=== PATIENT | male | born 1960 | race African-American/Black ===

== ENCOUNTER 2016-08-22 21:21 | Inpatient (IN) | payer OTHER ==
[~2016-08-22] VITALS: Ht 177.8 cm; Wt 98.3 kg
[2016-08-22] VITALS (8 sets, daily range): BP systolic 102–183; BP diastolic 69–113; PULSE 71–118; RESP 17–18; TEMP 98.5; O2SAT 92–97
[~2016-08-22 21:21] MED LIST: ASPI325T PO; LISI10 PO
--- NOTE | 2016-08-22 21:42 | PD ---
HPI Chief Complaint: Chest Pain Time Seen by Provider: 21:29 Travel History International Travel<30 days: No Contact w/Intl Traveler<30days: No Traveled to known affect area: No History of Present Illness HPI 56-year-old male with history of hypertension here for evaluation of chest pain. The patient has had intermittent episodes of left-sided chest discomfort that goes into his left neck and down his left arm over the last 2 days. He describes the pain as sharp. He also complains of intermittent numbness to his left arm. No focal weakness or focal neurologic deficits. Currently the pain is 3 out of 10. He took a full aspirin just prior to coming to the emergency department. He states he has been admitted to our hospital before for chest pain and had a negative workup. Chart review shows that he had a negative myocardial perfusion scan in 2014. He used to have a primary care physician and was on lisinopril, however because insurance changes he is no longer seeing a primary care physician and is no longer on lisinopril. He denies dyspnea. No history of DVT or PE. No fevers or recent illness. Family history of heart disease in his mother who from cardiac complications. PFSH Past Medical History Heart Rhythm Problems: No Cancer: No Cardiac Catheterization: No Cardiovascular Problems: No High Cholesterol: No Congestive Heart Failure: No Diabetes: No Diminished Hearing: No Hepatitis: No Hiatal Hernia: No Hypertension: Yes Respiratory: Yes ("I TEST POSITIVE FOR TB, BUT I DON'T HAVE TB." ) Thyroid Disease: No Past Surgical History Coronary Artery Bypass Graft: No Pacemaker: No Social History Alcohol Use: No Tobacco Use: No Substance Use: No Allergies-Medications (Allergen,Severity, Reaction): Coded Allergies: No Known Allergies (Verified , 08/22/16) Reported Meds & Prescriptions Reported Meds & Active Scripts Active No Active Prescriptions or Reported Medications Review of Systems Except as stated in HPI: all other systems reviewed are Neg Physical Exam Narrative GENERAL: Well-developed, well-nourished, comfortable, no acute distress. SKIN: Focused skin assessment warm/dry. HEAD: Atraumatic. Normocephalic. EYES: Pupils equal and round. No scleral icterus. No injection or drainage. ENT: Mucous membranes pink and moist. NECK: Trachea midline. No JVD. CARDIOVASCULAR: Tachycardic, rate 105, regular. Distal pulses brisk and equal bilaterally. RESPIRATORY: No accessory muscle use. Clear to auscultation. Breath sounds equal bilaterally. GASTROINTESTINAL: Abdomen soft, non-tender, nondistended. MUSCULOSKELETAL: No obvious deformities. No clubbing. No cyanosis. No edema. Bilateral calves are supple, nontender. NEUROLOGICAL: Awake and alert. No obvious cranial nerve deficits. Motor grossly within normal limits. Normal speech. PSYCHIATRIC: Appropriate mood and affect; insight and judgment normal. Data Data Last Documented VS Vital Signs Date Time Temp Pulse Resp B/P Pulse Ox O2 Delivery O2 Flow Rate FiO2 08/22/16 23:42 97 Nasal Cannula 2 08/22/16 23:42 92 18 182/100 08/22/16 21:25 98.5 Orders Electrocardiogram (08/22/16 21:27) Basic Metabolic Panel (Bmp) (08/22/16 21:39) Ckmb (Isoenzyme) Profile (08/22/16 21:39) Complete Blood Count With Diff (08/22/16 21:39) D-Dimer (08/22/16 21:39) Prothrombin Time / Inr (Pt) (08/22/16 21:39) Act Partial Throm Time (Ptt) (08/22/16 21:39) Troponin I (08/22/16 21:39) Chest, Single Ap (08/22/16 21:39) Ecg Monitoring (08/22/16 21:39) Bilateral Bp Monitoring (08/22/16 21:39) Iv Access Insert/Monitor (08/22/16 21:39) Oximetry (08/22/16 21:39) Oxygen Administration (08/22/16 21:39) Sodium Chloride 0.9% Flush (Ns Flush) (08/22/16 21:45) Nitroglycerin Sl (Nitrostat Sl) (08/22/16 21:45) Ct Pulmonary Angiogram (08/22/16 22:10) Sodium Chlor 0.9% 1000 Ml Inj (Ns 1000 M (08/22/16 22:15) CKMB (08/22/16 21:40) CKMB% (08/22/16 21:40) Acetaminophen (Tylenol) (08/22/16 22:15) Iohexol 350 Inj (Omnipaque 350 Inj) (08/22/16 23:00) Lisinopril (Prinivil) (08/23/16 00:00) Place In Observation (08/22/16 23:56) Activity Bed Rest With Brp (08/22/16 23:56) Vital Signs (Adult) Q4H (08/22/16 23:56) Cardiac Rhythm .As Directed (08/22/16 23:56) Notify Dr: Other .PRN (08/22/16 23:56) Notify DrEmily Parameters (08/22/16 23:56) Resp Oxygen Nasal Cannula (08/22/16 ) Diet Npo (08/23/16 Breakfast) Ckmb (Isoenzyme) Profile (08/23/16 00:40) Ckmb (Isoenzyme) Profile (08/23/16 03:40) Troponin I (08/23/16 00:40) Troponin I (08/23/16 03:40) Electrocardiogram (08/23/16 00:40) Electrocardiogram (08/23/16 03:40) ^ Obtain (08/22/16 23:56) Sodium Chloride 0.9% Flush (Ns Flush) (08/23/16 00:00) Sodium Chloride 0.9% Flush (Ns Flush) (08/23/16 09:00) Training Project Manager / Telemetry [email or web address] (08/22/16 23:56) Labs Laboratory Tests Test 08/22/16 21:40 White Blood Count 10.1 TH/MM3 Red Blood Count 5.67 MIL/MM3 Hemoglobin 16.0 GM/DL Hematocrit 46.8 % Mean Corpuscular Volume 82.5 FL Mean Corpuscular Hemoglobin 28.2 PG Mean Corpuscular Hemoglobin 34.1 % Concent Red Cell Distribution Width 13.6 % Platelet Count 251 TH/MM3 Mean Platelet Volume 9.0 FL Neutrophils (%) (Auto) 50.0 % Lymphocytes (%) (Auto) 37.2 % Monocytes (%) (Auto) 10.6 % Eosinophils (%) (Auto) 1.6 % Basophils (%) (Auto) 0.6 % Neutrophils # (Auto) 4.9 TH/MM3 Lymphocytes # (Auto) 3.8 TH/MM3 Monocytes # (Auto) 1.1 TH/MM3 Eosinophils # (Auto) 0.2 TH/MM3 Basophils # (Auto) 0.1 TH/MM3 CBC Comment DIFF FINAL Differential Comment Prothrombin Time 10.1 SEC Prothromb Time International 0.9 RATIO Ratio Activated Partial 25.7 SEC Thromboplast Time D-Dimer Quantitative (PE/DVT) 5.97 MG/L FEU Sodium Level 142 MEQ/L Potassium Level 3.6 MEQ/L Chloride Level 106 MEQ/L Carbon Dioxide Level 26.1 MEQ/L Anion Gap 10 MEQ/L Blood Urea Nitrogen 21 MG/DL Creatinine 1.10 MG/DL Estimat Glomerular Filtration 84 ML/MIN Rate Random Glucose 101 MG/DL Calcium Level 9.7 MG/DL Total Creatine Kinase 183 U/L Creatine Kinase MB 3.1 NG/ML Troponin I 0.02 NG/ML [facility] Medical Decision Making Medical Screen Exam Complete: Yes Emergency Medical Condition: Yes Medical Record Reviewed: Yes Interpretation(s) EKG: Sinus, rate 105, normal axis, normal intervals, nonspecific T-wave abnormality, Q waves in inferior leads, no ST segment abnormalities, unchanged from prior. Differential Diagnosis ACS, pneumothorax, pericarditis, PE, pneumonia, hypertensive crisis, dissection Narrative Course Initial vital signs show heart rate 107, blood pressure 183/113, pulse ox 97% on room air, oral temp of 98.5F. Patient was given 3 sublingual nitroglycerin without improvement in chest pain, blood pressure did improve to 135/84. Initial pressures were equal bilaterally. His O2 saturation did drop to 93% on 2 L nasal cannula and his heart rate increased to 116. CT pulmonary angiogram ordered to rule out PE. Patient complained of headache after receiving sublingual nitroglycerin and was given Tylenol for this pain. CBC is unremarkable. BMP is essentially unremarkable. Troponin is 0.02. D-dimer is 5.97. Chest x-ray: No acute disease. CT pulmonary angiogram: Negative for pulmonary embolism. Patient was made aware of all findings. He is resting comfortably. Heart rate is improved to the low 90s after he received a liter of normal saline IV. States that his chest pain has improved, however he experienced an episode of chest pain just prior to me reassessing him at 11:30 PM. Blood pressure initially was elevated, improved to 130 over 80, and is not back to 180/100. His hypertension is chronic and he is no longer on antihypertensives. I do not believe this is a hypertensive crisis that the patient is experiencing. I told the patient would like to admit him for further cardiac evaluation to the chest pain center. He is amenable to this plan. Case discussed with hospitalist Dr. Shrestha who will admit the patient to her service. Diagnosis Primary Impression: Chest pain Qualified Code: R07.9 - Chest pain, unspecified type Additional Impression: Hypertension Qualified Code: I10 - Essential hypertension Admitting Information Admitting Physician Requests: Observation Scripts No Active Prescriptions or Reported Meds Judah Kenney MD Aug 22, 2016 21:42
[2016-08-22] MEDS ORDERED: SODIUM CHLORIDE 0.9% FLUSH 10 ML FLUSH IVF PRN (21:45)
[2016-08-22 21:50] LABS: AUTOMATED NEUTROPHIL # 4.9 TH/MM3 (1.8-7.7); BASOPHIL # 0.1 TH/MM3 (0-0.2); BASOPHIL % 0.6 % (0.0-2.0); EOSINOPHIL # 0.2 TH/MM3 (0-0.4); EOSINOPHIL % 1.6 % (0.0-4.0); HEMATOCRIT 46.8 % (39.0-51.0); HEMO FLAGS DIFF FINAL; LYMPH % 37.2 % (9.0-44.0); LYMPHOCYTE # 3.8 TH/MM3 (1.0-4.8); MEAN CELL VOLUME 82.5 FL (80.0-100.0); MEAN CORPUSCULAR HEMOGLOBIN 28.2 PG (27.0-34.0); MEAN CORPUSCULAR HGB CONC 34.1 % (32.0-36.0); MONO % 10.6 % (0.0-8.0); PLATELET COUNT 251 TH/MM3 (150-450); RED BLOOD COUNT 5.67 MIL/MM3 (4.50-5.90); RED CELL DISTRIBUTION WIDTH 13.6 % (11.6-17.2); WHITE BLOOD COUNT 10.1 TH/MM3 (4.0-11.0)
[2016-08-22] MEDS: NITROGLYCERIN 0.4 MG SL 25 TABS/BTL SL SCH ×3 (21:52→22:04)
--- NOTE | 2016-08-22 22:00 | RADRPT ---
EXAM DATE/TIME: 08/22/2016 21:43 [facility] COMPARISON: CHEST PA & LAT, July 06, 2014, 7:36. INDICATIONS : Chest pain. MEDICAL HISTORY : None. SURGICAL HISTORY : None. ENCOUNTER: Initial ACUITY: 1 day PAIN SCORE: 7/10 LOCATION: Left chest FINDINGS: A single view of the chest demonstrates the lungs to be symmetrically aerated without evidence of mas s, infiltrate or effusion. The cardiomediastinal contours are unremarkable. Osseous structures are intact. CONCLUSION: No acute disease. Brian Ferrera MD on August 22, 2016 at 21:57 Board Certified Radiologist. This report was verified electronically.
[2016-08-22 22:01] LABS: CHLORIDE 106 MEQ/L (98-107); POTASSIUM 3.6 MEQ/L (3.5-5.1); SODIUM (NA) 142 MEQ/L (136-145)
[2016-08-22 22:05] LABS: ANION GAP 10 MEQ/L (5-15); BICARBONATE 26.1 MEQ/L (21.0-32.0); BLOOD UREA NITROGEN 21 MG/DL (7-18)
[2016-08-22 22:08] LABS: GLOMERULAR FILTRATION RATE 84 ML/MIN (>89)
[2016-08-22 22:11] LABS: CREATINE KINASE 183 U/L (39-308)
[2016-08-22] MEDS ORDERED: SODIUM CHLOR 0.9% 1000 ML INJ 1,000 ML IV ONE (22:15)
[2016-08-22] MEDS ORDERED: ACETAMINOPHEN 325 MG TAB PO ONE (22:15)
[2016-08-22 22:16] LABS: APTT (PATIENT) 25.7 SEC (24.3-30.1); INTERNATIONAL NORMALIZED RATIO 0.9 RATIO; PROTHROMBIN TIME - PATIENT 10.1 SEC (9.8-11.6)
[2016-08-22 22:25] LABS: CKMB 3.1 NG/ML (0.5-3.6)
[2016-08-22] MEDS ORDERED: IOHEXOL 350 MG/ML 10 ML VIAL (for RAD DIAG) IV ONE (23:00)
--- NOTE | 2016-08-22 23:10 | RADRPT ---
EXAM DATE/TIME: 08/22/2016 22:42 [facility] COMPARISON: No previous studies available for comparison. INDICATIONS : Left sided chest pain. Elevated d-dimer. IV CONTRAST: 75 cc Omnipaque 350 (iohexol) IV RADIATION DOSE: 21.07 CTDIvol (mGy) MEDICAL HISTORY : None SURGICAL HISTORY : None. ENCOUNTER: Initial ACUITY: 1 day PAIN SCALE: 8/10 LOCATION: Left chest TECHNIQUE: Volumetric scanning of the chest was performed using a pulmonary embolism protocol MIP images were re constructed. Using automated exposure control and adjustment of the mA and/or kV according to patien t size, radiation dose was kept as low as reasonably achievable to obtain optimal diagnostic quality images. DICOM format image data is available electronically for review and comparison. FINDINGS: PULMONARY ARTERIES: No filling defects are seen in the pulmonary arteries through the segmental level. LUNGS: There is no consolidation or pneumothorax . No concerning pulmonary nodule is visualized. PLEURAE: There is no pleural thickening or pleural effusion. MEDIASTINUM: There is good visualization of the great vessels of the middle mediastinum. No evidence of mediastin al or hilar adenopathy/mass. CONCLUSION: The study is negative for pulmonary embolism. Gigi Bryson MD on August 22, 2016 at 23:08 Board Certified Radiologist. This report was verified electronically.
[2016-08-23] VITALS (15 sets, daily range): BP systolic 144–210; BP diastolic 86–126; PULSE 74–97; RESP 16–18; TEMP 95.8–98.5; O2SAT 92–97
[2016-08-23] MEDS ORDERED: SODIUM CHLORIDE 0.9% FLUSH 10 ML FLUSH IV FLUSH PRN
[2016-08-23] MEDS ORDERED: LISINOPRIL 20 MG TAB PO ONE
[2016-08-23] MEDS ORDERED: NITROGLYCERIN 0.4 MG SL 25 TABS/BTL SL ONE (00:30)
[2016-08-23] MEDS: MORPHINE SULFATE 8 MG/ML INJ IV PUSH PRN ×2 (00:46→03:06)
[2016-08-23 01:16] LABS: CREATINE KINASE 160 U/L (39-308)
[2016-08-23 01:29] LABS: CKMB 2.7 NG/ML (0.5-3.6)
[2016-08-23 06:35] LABS: CREATINE KINASE 145 U/L (39-308)
[2016-08-23 06:50] LABS: CKMB 2.9 NG/ML (0.5-3.6)
--- NOTE | 2016-08-23 07:52 | EKG ---
Date Performed: 08/22/2016 Time Performed: 21:27:57 PTAGE: 56 years EKG: SINUS TACHYCARDIA MODERATE VOLTAGE CRITERIA FOR LVH, CONSIDER NORMAL VARIANT NONSPECIFIC T- WAVE ABNORMALITY ABNORMAL RHYTHM ECG PREVIOUS TRACING : 07/08/2014 12.59 DOCTOR: Magdi Ma Interpretating Date/Time 08/23/2016 07:49:57
[2016-08-23] MEDS ORDERED: ONDANSETRON HCL 4 MG/2 ML VIAL IV PRN (08:00)
[2016-08-23] MEDS ORDERED: ACETAMINOPHEN 500 MG CPLT PO PRN (08:00)
[2016-08-23] MEDS ORDERED: ENALAPRILAT 1.25 MG/ML VIAL IV PUSH PRN (08:00)
[2016-08-23] MEDS ORDERED: NITROGLYCERIN 0.4 MG SL 25 TABS/BTL SL PRN (08:00)
[2016-08-23] MEDS ORDERED: MORPHINE SULFATE 4 MG/ML INJ IV PRN (08:00)
[2016-08-23] MEDS: SODIUM CHLORIDE 0.9% FLUSH 10 ML FLUSH SCH ×2 (08:11→19:51)
[2016-08-23] MEDS: LISINOPRIL 20 MG TAB PO SCH (09:00)
[2016-08-23] MEDS: amLODIPine BESYLATE 5 MG TAB PO SCH (09:30)
[2016-08-23] MEDS ORDERED: REGADENOSON INJ 0.4 MG/5 ML SYR IV ONE (11:43)
[2016-08-23] MEDS: ACETAMINOPHEN/HYDROcodone 325 MG/7.5 MG TAB PO PRN ×2 (12:53→19:50)
--- NOTE | 2016-08-23 13:52 | HHI.HP ---
[facility] Service [facility] Primary Care Physician No Primary Care Physician Admission Diagnosis Chest Pain, Hypertension Diagnoses: Chief Complaint: Chest pain Travel History International Travel<30 Days: No Contact w/Intl Traveler <30 Da: No Traveled to Known Affected Are: No History of Present Illness Mr. Damon is a pleasant 56-year-old male with history of hypertension who presented to the emergency department on 08/22/2016 due to chest pain.Started about two days ago, patient was sitting and started experiencing sharp chest pain that lasted about 5 minutes at a time. Patient describes his chest discomfort as tightness and radiates to the left side of the neck as well as to the back and his left arm feels numb. He also ports diaphoresis. No nausea vomiting or shortness of breath. He does get somewhat dizzy during these episodes. Patient denies any cough, fever or chills. Denies any changes in bowel or bladder habits. On arrival patient's temperature 98.5 pulse 107 respiration 18 blood pressure 183/113 pulse oximetry 97% on room air. Troponins 3 negative. Nuclear stress test indicated questionable reversible small ischemia. Review of Systems Except as stated in HPI: all other systems reviewed are Neg Past Family Social History Past Medical History Hypertension Past Surgical History No significant surgical history Reported Medications Aspirin 81 mg daily. Allergies: Coded Allergies: No Known Allergies (Verified , 08/22/16) Family History Mother had CHF, brother has hyperlipidemia Social History Patient quit smoking 3 years ago. He used to smoke 1 pack or 5 days. Denies using any current tobacco, alcohol or illicit drugs. Physical Exam Vital Signs Vital Signs Date Time Temp Pulse Resp B/P Pulse Ox O2 Delivery O2 Flow Rate FiO2 08/23/16 12:00 96.8 81 16 153/102 93 08/23/16 08:00 95 21 08/23/16 08:00 96.5 94 16 177/105 95 08/23/16 07:01 79 08/23/16 04:00 98.5 74 18 162/105 97 08/23/16 02:48 95.8 87 18 150/97 97 08/23/16 02:01 89 16 97 Nasal Cannula 2 08/23/16 01:33 91 18 144/86 97 Nasal Cannula 08/23/16 00:55 95 18 158/99 94 Nasal Cannula 2 08/23/16 00:51 16 08/23/16 00:51 16 08/23/16 00:23 97 18 210/126 97 Nasal Cannula 2 08/23/16 00:05 96 Nasal Cannula 2.00 08/22/16 23:42 97 Nasal Cannula 2 08/22/16 23:42 92 18 182/100 96 Nasal Cannula 08/22/16 23:20 17 08/22/16 23:00 71 18 102/69 97 Room Air 08/22/16 22:45 93 17 172/100 96 Nasal Cannula 2 08/22/16 22:08 116 17 135/84 93 Nasal Cannula 2 08/22/16 22:02 118 18 173/77 92 Room Air 08/22/16 21:57 110 18 166/96 93 Room Air 08/22/16 21:57 18 08/22/16 21:40 Room Air 08/22/16 21:40 101 18 176/104 97 Room Air 178/100 08/22/16 21:40 97 Room Air 08/22/16 21:40 97 Room Air 08/22/16 21:25 98.5 107 18 183/113 97 Physical Exam GENERAL: This is a well-nourished, well-developed patient, in no apparent distress. SKIN: No rashes, ecchymoses or lesions. Warm and dry. HEAD: Atraumatic. Normocephalic. No temporal or scalp tenderness. EYES: Pupils equal round and reactive. No injection or drainage. ENT: Nose without bleeding, purulent drainage or septal hematoma. Airway patent. NECK: Trachea midline. No lymphadenopathy. Supple, nontender, no meningeal signs. CARDIOVASCULAR: Regular rate and rhythm without murmurs, gallops, or rubs. No JVD. RESPIRATORY: Clear to auscultation. Breath sounds equal bilaterally. No wheezes , rales, or rhonchi. GASTROINTESTINAL: Abdomen soft, non-tender, nondistended. No guarding. MUSCULOSKELETAL: Extremities without clubbing, cyanosis, or edema. NEUROLOGICAL: Awake and alert. Cranial nerves II through XII intact. No focal neurological deficits. Normal speech. Laboratory Laboratory Tests Test 08/22/16 08/23/1617 21:40 00:30 04:50 White Blood Count 10.1 Red Blood Count 5.67 Hemoglobin 16.0 Hematocrit 46.8 Mean Corpuscular Volume 82.5 Mean Corpuscular Hemoglobin 28.2 Mean Corpuscular Hemoglobin 34.1 Concent Red Cell Distribution Width 13.6 Platelet Count 251 Mean Platelet Volume 9.0 Neutrophils (%) (Auto) 50.0 Lymphocytes (%) (Auto) 37.2 Monocytes (%) (Auto) 10.6 Eosinophils (%) (Auto) 1.6 Basophils (%) (Auto) 0.6 Neutrophils # (Auto) 4.9 Lymphocytes # (Auto) 3.8 Monocytes # (Auto) 1.1 Eosinophils # (Auto) 0.2 Basophils # (Auto) 0.1 CBC Comment DIFF FINAL Differential Comment Prothrombin Time 10.1 Prothromb Time International 0.9 Ratio Activated Partial 25.7 Thromboplast Time D-Dimer Quantitative (PE/DVT) 5.97 Sodium Level 142 Potassium Level 3.6 Chloride Level 106 Carbon Dioxide Level 26.1 Anion Gap 10 Blood Urea Nitrogen 21 Creatinine 1.10 Estimat Glomerular Filtration 84 Rate Random Glucose 101 Calcium Level 9.7 Total Creatine Kinase 183 160 145 Creatine Kinase MB 3.1 2.7 2.9 Troponin I 0.02 0.02 LESS THAN 0.02 Result Diagram: 08/22/16213908/22/162139 Imaging Last Impressions Myocardial Perfusion Scan Nuc Med 08/23/16 1008 Signed Impressions: Service Date/Time: July 11:46 - CONCLUSION: Small questionably reversible area of diminished perfusion involving the lateral apical region. RISK CATEGORY: Low (<1%% Annual Mortality Rate) Pierce Morales MD CT Angiography 08/22/162209 Signed Impressions: Service Date/Time: Monday, August 22, 2016 22:42 - CONCLUSION: The study is negative for pulmonary embolism. Gigi Bryson MD Chest X-Ray 08/22/162138 Signed Impressions: Service Date/Time: Monday, August 22, 2016 21:43 - CONCLUSION: No acute disease. Brian Ferrera MD Assessment and Plan Problem List: (1) Chest pain ICD Code: R07.9 Status: Acute (2) Hypertension ICD Code: I10 Status: Acute Assessment and Plan Mr. Hope is a 56-year-old male with a history of hypertension who presented to the emergency department on 08/22/2016 due to chest pain. Patient underwent nuclear stress test shows questionable reversible small ischemia. Troponins negative. EKG shows inferior leads and T-wave inversions. Discussed with cardiology who recommended transferring patient from [place] to [facility] for probable cardiac catheterization. - Chest pain - Patient's chest pain features are typical. Nuclear perfusion study shows questionable reversible ischemia. - Discussed with cardiology who recommended transferring patient to the main hospital. - We'll obtain lipid panel added to the morning lab. - Start aspirin 81 mg, metoprolol 25 mg twice a day, atorvastatin 40 mg daily at bedtime. - Hypertension - Started patient on amlodipine 5 mg daily, lisinopril 20 mg daily. - Clonidine can be used when necessary. Full code. Lovenox 40 mg daily. Nothing by mouth midnight. Problem Qualifiers (1) Chest pain: Qualified Code: R07.9 - Chest pain, unspecified type (2) Hypertension: Qualified Code: I10 - Essential hypertension Jose Luis Murillo DO Aug 23, 2016 1:52 pm
--- NOTE | 2016-08-23 14:31 | PD.PN.STU ---
Subjective Remarks CC: chest pain radiating to neck and back HPI: 56 year old male with history of hypertension complaining of intermittent episodes of chest pain. He describes the pain as sharp with radiation to his neck and back. The episodes last about 5 minutes and are associated with numbness/ tingling in his left arm, diaphoresis, and tightness in his chest. He denies any SOB, chills, nausea, and vomiting but sometimes feels lightheaded or dizzy. The first episode occurred two days ago while he was at rest. He cannot think of anything that provokes the episodes nor anything that helps them. He has previously been treated for hypertension but discontinued the medication over a year ago. He currently does not have a PCP as his previous provider is no longer covered by his insurance. Cardiac enzymes negative, no acute changes in EKG x3. Stress testing notes possible small reversible ischemia. BP on arrival 183/113, currently 148/107. PMH: Hypertension PSH: n/a Family history: mother from congestive heart failure brother- hyperlipidemia Social history: previous smoker, quit 3 years ago no alcohol or illegal drug use Medications: ASA 81mg PO QD Allergies: NKDA Objective Vitals Vital Signs Date Time Temp Pulse Resp B/P Pulse Ox O2 Delivery O2 Flow Rate FiO2 08/23/16 13:30 97.0 85 16 148/107 96 08/23/16 12:00 96.8 81 16 153/102 93 08/23/16 08:00 95 21 08/23/16 08:00 96.5 94 16 177/105 95 08/23/16 07:01 79 08/23/16 04:00 98.5 74 18 162/105 97 08/23/16 02:48 95.8 87 18 150/97 97 08/23/16 02:01 89 16 97 Nasal Cannula 2 08/23/16 01:33 91 18 144/86 97 Nasal Cannula 08/23/16 00:55 95 18 158/99 94 Nasal Cannula 2 08/23/16 00:51 16 08/23/16 00:51 16 08/23/16 00:23 97 18 210/126 97 Nasal Cannula 2 08/23/16 00:05 96 Nasal Cannula 2.00 08/22/16 23:42 97 Nasal Cannula 2 08/22/16 23:42 92 18 182/100 96 Nasal Cannula 08/22/16 23:20 17 08/22/16 23:00 71 18 102/69 97 Room Air 08/22/16 22:45 93 17 172/100 96 Nasal Cannula 2 08/22/16 22:08 116 17 135/84 93 Nasal Cannula 2 08/22/16 22:02 118 18 173/77 92 Room Air 08/22/16 21:57 110 18 166/96 93 Room Air 08/22/16 21:57 18 08/22/16 21:40 Room Air 08/22/16 21:40 101 18 176/104 97 Room Air 178/100 08/22/16 21:40 97 Room Air 08/22/16 21:40 97 Room Air 08/22/16 21:25 98.5 107 18 183/113 97 I/O 08/22/16 08/22/16 08/22/16 08/23/16 08/23/16 08/23/16 07:00 15:00 23:00 07:00 15:00 23:00 Intake Total 1000 ml 0 ml Balance 1000 ml 0 ml Intake Oral 0 ml 0 ml IV Total 1000 ml # Voids 1 Result Diagram: 08/22/16213908/22/162139 Other Results Last Impressions Myocardial Perfusion Scan Nuc Med 08/23/16 1008 Signed Impressions: Service Date/Time: July 11:46 - CONCLUSION: Small questionably reversible area of diminished perfusion involving the lateral apical region. RISK CATEGORY: Low (<1%% Annual Mortality Rate) Pierce Morales MD CT Angiography 08/22/162209 Signed Impressions: Service Date/Time: Monday, August 22, 2016 22:42 - CONCLUSION: The study is negative for pulmonary embolism. Gigi Bryson MD Chest X-Ray 08/22/162138 Signed Impressions: Service Date/Time: Monday, August 22, 2016 21:43 - CONCLUSION: No acute disease. Brian Ferrera MD Objective Remarks GENERAL: This is a well-nourished, well-developed patient, obese, in no apparent distress. SKIN: No rashes, ecchymoses or lesions. Warm and dry. HEAD: Atraumatic. Normocephalic. No temporal or scalp tenderness. EYES: Pupils equal round and reactive. No injection or drainage. ENT: Nose without bleeding, purulent drainage or septal hematoma. Airway patent. NECK: Trachea midline. No lymphadenopathy. Supple, nontender, no meningeal signs. CARDIOVASCULAR: Regular rate and rhythm without murmurs, gallops, or rubs. No JVD. RESPIRATORY: Clear to auscultation. Breath sounds equal bilaterally. No wheezes , rales, or rhonchi. GASTROINTESTINAL: Abdomen soft, non-tender, nondistended. No guarding. MUSCULOSKELETAL: Extremities without clubbing, cyanosis, or edema. NEUROLOGICAL: Awake and alert. No focal neurological deficits. Normal speech. A/P Assessment and Plan Mr. Damon is a 56-year-old male with a history of hypertension who presented to the emergency department on 08/22/2016 due to chest pain. Patient underwent nuclear stress test shows questionable reversible small ischemia. Troponins negative. EKG shows inferior leads and T-wave inversions. Discussed with cardiology who recommended transferring patient from [place] to [facility] for probable cardiac catheterization. - Chest pain - Patient's chest pain features are typical. Nuclear perfusion study shows questionable reversible ischemia. - Discussed with cardiology who recommended transferring patient to the main hospital. - Will obtain lipid panel added to the morning lab. - Start aspirin 81 mg, metoprolol 25 mg twice a day, atorvastatin 40 mg daily at bedtime. - Hypertension, uncontrolled - Started patient on amlodipine 5 mg daily, lisinopril 20 mg daily. - Clonidine can be used when necessary. Melissa Whittaker M3 Aug 23, 2016 14:31
--- NOTE | 2016-08-23 14:32 | RADRPT ---
EXAM DATE/TIME: 08/23/2016 11:46 [facility] COMPARISON: No previous studies available for comparison. INDICATIONS : Left chest pain radiating to left neck and arm. Abnormal EKG. DOSE: 35 mCi Tc99m Myoview at stress. 11 mCi Tc99m Myoview at rest. 0.4 mg Lexiscan STRESS SYMPTOMS: Lightheaded. EJECTION FRACTION: > 70% MEDICAL HISTORY : Hypertension. SURGICAL HISTORY : Lower back. ENCOUNTER: Initial ACUITY: 2 days PAIN SCALE: 7/10 LOCATION: Left chest TECHNIQUE: The patient underwent pharmacologic stress with infusion of prescribed dose. Continuous ECG tracing was monitored during stress. Gated SPECT imaging was performed after stress and conventional SPECT i maging was performed at rest. The examination was performed on a SPECT/CT scanner, both attenuation and non-corrected datasets were reviewed. FINDINGS: DISTRIBUTION: The maximum perfused segment at stress is in the anterior wall. PERFUSION STUDY: Small area of mildly diminished relative perfusion involving the lateral apical region with possible mild redistribution. GATED STUDY: There is intact wall motion and thickening without hypokinetic or dyskinetic segments. CONCLUSION: Small questionably reversible area of diminished perfusion involving the lateral apical region. RISK CATEGORY: Low (<1% Annual Mortality Rate) Pierce Morales MD on August 23, 2016 at 14:23 Board Certified Radiologist. This report was verified electronically.
[2016-08-23] MEDS ORDERED: AMLO5 PO (14:38)
[2016-08-23] MEDS ORDERED: ASPI81TA11 PO (14:38)
[2016-08-23] MEDS ORDERED: LISI-515 PO (14:38)
[2016-08-23] MEDS ORDERED: LIPI40TA PO (14:39)
[2016-08-23] MEDS ORDERED: METOPROLOL TARTRATE 25 MG TAB PO ONE (15:00)
[2016-08-23] MEDS ORDERED: ASPIRIN EC 81 MG TABEC PO ONE (15:15)
[2016-08-23] MEDS ORDERED: ENOXAPARIN SODIUM 40 MG/0.4 ML SYRINGE SQ SCH (16:00)
[2016-08-23] MEDS: cloNIDine HCL 0.1 MG TAB PO PRN (16:24)
[2016-08-23 17:12] LABS: HDL CHOLESTEROL 37.3 MG/DL (40.0-60.0)
[2016-08-23] MEDS: ATORVASTATIN 40 MG TAB PO SCH (19:50)
[2016-08-24] VITALS (21 sets, daily range): BP systolic 121–155; BP diastolic 58–100; PULSE 68–98; RESP 16–19; TEMP 97.6–98.5; O2SAT 94–97
[2016-08-24] MEDS: amLODIPine BESYLATE 5 MG TAB PO SCH (08:20)
[2016-08-24] MEDS: METOPROLOL TARTRATE 25 MG TAB PO SCH ×2 (08:20→20:29)
[2016-08-24] MEDS: LISINOPRIL 20 MG TAB PO SCH (08:21)
[2016-08-24] MEDS: ASPIRIN EC 81 MG TABEC PO SCH (08:21)
[2016-08-24] MEDS: SODIUM CHLORIDE 0.9% FLUSH 10 ML FLUSH SCH ×2 (08:24→20:30)
--- NOTE | 2016-08-24 09:14 | HHI.PR ---
Subjective Remarks Follow-up chest pain. Patient had a very short episode of right-sided chest pain this morning, but it only lasted a few seconds. He rated the pain 1-2/10. No other complaints at this time. Objective Vitals Vital Signs Date Time Temp Pulse Resp B/P Pulse Ox O2 Delivery O2 Flow Rate FiO2 08/24/16 05:19 98.3 88 18 145/80 95 08/24/16 00:30 97.8 83 16 121/58 94 08/24/16 00:00 83 08/23/16 22:00 87 08/23/16 20:40 93 21 08/23/16 18:17 160/92 08/23/16 18:10 79 08/23/16 16:00 97.8 93 16 162/110 92 08/23/16 13:30 97.0 85 16 148/107 96 08/23/16 12:00 96.8 81 16 153/102 93 I/O 08/23/16 08/23/16 08/23/16 08/24/16 08/24/16 08/24/16 07:00 15:00 23:00 07:00 15:00 23:00 Intake Total 1000 ml 0 ml 240 ml 0 ml Balance 1000 ml 0 ml 240 ml 0 ml Intake Oral 0 ml 0 ml 240 ml 0 ml IV Total 1000 ml # Voids 1 Result Diagram: 08/22/16213908/22/162139 Imaging Last Impressions Myocardial Perfusion Scan Nuc Med 08/23/16 1008 Signed Impressions: Service Date/Time: July 11:46 - CONCLUSION: Small questionably reversible area of diminished perfusion involving the lateral apical region. RISK CATEGORY: Low (<1%% Annual Mortality Rate) Pierce Morales MD CT Angiography 08/22/162209 Signed Impressions: Service Date/Time: Monday, August 22, 2016 22:42 - CONCLUSION: The study is negative for pulmonary embolism. Gigi Bryson MD Chest X-Ray 08/22/162138 Signed Impressions: Service Date/Time: Monday, August 22, 2016 21:43 - CONCLUSION: No acute disease. Brian Ferrera MD Objective Remarks General: No acute distress. Heart: Regular rate and rhythm. No murmur. Lungs: Clear to auscultation bilaterally. No wheezes, rales, or rhonchi. Breathing is nonlabored. Abdomen: Soft, nontender, nondistended. Extremities: No lower extremity edema. Psych: Alert and oriented. Urinary Catheter: No Vascular Central Line Catheter: No A/P Problem List: (1) Chest pain ICD Code: R07.9 Status: Acute (2) Hypertension ICD Code: I10 Status: Chronic Assessment and Plan 1. Chest pain, abnormal nuclear stress test: Cardiology planning for cardiac catheterization this morning. Continue aspirin, beta ludmila, statin. 2. Hypertension: Continue amlodipine, metoprolol, lisinopril. Clonidine as needed. 3. DVT prophylaxis: Lovenox. Discharge Planning When cleared by cardiology. Problem Qualifiers (1) Chest pain: Qualified Code: R07.9 - Chest pain, unspecified type (2) Hypertension: Qualified Code: I10 - Essential hypertension Man Novak MD Aug 24, 2016 09:14
[2016-08-24] MEDS ORDERED: MIDAZOLAM HCL 2 MG/2 ML VIAL ONE (09:35)
[2016-08-24] MEDS ORDERED: HEPARIN-NS/PF INJ 500 ML ONE (09:35)
[2016-08-24] MEDS ORDERED: VERAPAMIL HCL 5 MG/2 ML VIAL ONE (09:35)
--- NOTE | 2016-08-24 09:35 | EKG ---
Date Performed: 08/23/2016 Time Performed: 03:40:54 PTAGE: 56 years EKG: Sinus rhythm NONSPECIFIC T-WAVE ABNORMALITY BORDERLINE ECG INTERPRETATION BASED ON A DEFAULT AGE OF 40 YEARS NO PREVIOUS TRACING DOCTOR: Rbo Ventura Interpretating Date/Time 08/24/2016 09:32:39
--- NOTE | 2016-08-24 09:35 | EKG ---
Date Performed: 08/23/2016 Time Performed: 00:31:38 PTAGE: 56 years EKG: Sinus rhythm PROBABLE INFERIOR MYOCARDIAL INFARCTION NON SPECIFIC T WAVE CHANGES ABNORMAL ECG PREVIOUS TRACING : 08/22/2016 21.27 Since previous tracing, no significant change noted DOCTOR: Rob Ventura Interpretating Date/Time 08/24/2016 09:33:35
[2016-08-24] MEDS ORDERED: HEPARIN SODIUM - IV 10,000 UNITS/10 ML VIAL ONE (09:36)
[2016-08-24] MEDS ORDERED: NITROGLYCERIN INJ 5 ML ONE (09:37)
--- NOTE | 2016-08-24 09:37 | TR ---
Date Performed: 08/23/2016 Time Performed: 12:09:16 DOCTOR: Rob Ventura DRUG LIST: CLINICAL HISTORY: REASON FOR TEST: Chest pain REASON FOR ENDING: OBSERVATION: CONCLUSION: Lexiscan stress test was performed under standard four minute protocol. Radionuclid e was injected one minute prior to ending the test. No electrocardiographic abormalities were present to suggest ischemia. Nuclear imaging and interpretation are pending. COMMENTS:
[2016-08-24] MEDS ORDERED: PNEUMOCOCCAL POLYVALENT INJ 25 MCG/0.5 ML SYR IM ONE (10:00)
[2016-08-24] MEDS ORDERED: IOHEXOL 350 MG/ML 100 ML BTL (for Cath Lab) OTHER ONE (10:30)
--- NOTE | 2016-08-24 10:38 | CATHPROC ---
[facility] Report Study Information Study Number Admission Scheduled Start Study Start [id number] Aug 23 2016 12:03AM 08/24/2016 Aug 24 2016 9:08AM [facility] Cardiac Catheterization Admit Source Facility Department Other [facility] - Splicing Supervisor Physician and Clinical Staff Initial [employer] Instructor Keena Cha,BUD Other cathlab, cathlab Recorder Angelia Kauffman,ANIMAL RIDE ATTENDANT TECH2 Scrub Luis Daniel Mcclendon RCIS(BS) X-Ray Kathy Suarez,RT(R) TECH2 Procedures Performed Procedure Location (Site) Vessel Name Coronary Angiograms LCA Left Coronary Coronary Angiograms RCA Right Coronary L Heart Cath Wire insertion Radial (right) Radial Art. Equipment Time Gi Tech Description Size Mfg Part Number Used/Scraped TRANSDUCER, TRUWAVE [id number] 09:12 FUNES GREGORY * Used W/STOCKCOCK *[id number] [id number] *[id number] [id number] *[id number] 09:12 Fileboard PACK, CCL CUSTOM * Used *[id number] 09:12 [employer] SUPPORT, ARTERIAL ADULT [id number] Used BAND, RADIAL COMPRESSION TR [id number] 10:15 [employer] MEDICAL 29CM Used LARGE 29 *[id number] 09:12 [employer] WIRE, EXCHANGE 260CM 3MMJ 260CM Used *[id number] 09:12 NAMIC MANIFOLD, 4 PORT * Used *[id number] 09:12 [employer]ED OMNIPAQUE, 350 MG, 150ML 150ML [id number] Used [id number] 09:12 [employer] MED[employer] BLANKET,WARM AIR CCL * Used *[id number] SHEATH, FR6 TRANSRADIAL 09:12 [employer] FR 6 RM*[id number] Used SLENDER 10CM History: Allergies Allergy Reaction No Known Allergies History: Risk Factors Family History of Hypertension Dyslipidemia Previous AR Previous Heart Failure Premature CAD Yes No No No No Prior Valve Prior PCI Prior CABG Surgery No No No Cerebrovascular Peripheral Artery Chronic Lung On Dialysis Diabetes Disease Disease Disease No No No No No History: Symptoms/Diagnosis Selection Items Angina-unstable History: Stress Tests Stress or Imaging Studies Performed Yes Standard Exercise Stress Test No Stress Echo No Stress Test SPECT No Stress Test CMR Stress Test CMR Result Stress Test CMR Ischemia Risk/Extent Yes Positive Low Cardiac CTA Coronary Calcium Score No No History: Other Disease Selection Items HTN History: Other Current Smoker Method Quit Packs a Day Years Used Pack Years No Cigarettes 3 Years Ago 1 20 20 Labs Hgb (g/dl) Hct (%) RBC (MIL/MM3) WBC (l/cumm) Platelets (thousands) 11.60-17.00 35.00-51.00 4.00-5.90 4.00-11.00 150.00-450.00 16.0 46.8 5.6 10.1 251 Glucose (mg/dl) BUN (mg/dl) Creatinine (mg/dl) BUN:Creatinine (1:x) 74.00-106.00 7.00-18.00 0.50-1.30 10.00-20.00 101 10 1.1 9.1 Na (meq/l) K (meq/l) Cl (meq/l) CO2 (mmol/L) Ca (mg/dl) 136.00-145.00 3.50-5.10 98.00-107.00 21.00-32.00 8.50-10.10 142 3.6 106 26.1 9.7 PT (sec) PTT (sec) INR (PTT:PT) 9.80-11.60 24.30-30.10 0.90-1.10 10.1 25.7 0.9 CPK-MB (ng/ML) 0.50-3.60 2.9 Medication Medication Total Dose (Bolus/Oral) Medication Total Dosage/Unit 1% XYLOCAINE 10 mL FENTANYL 75 mcg OXYGEN 2 l/min RADIAL COCKTAIL 5 mL (Bolus) VERSED 1 mg Medications (Bolus/Oral) Medication Time Given Dosage/Unit Administered By Reason VERSED 08/24/2016 9:53:47 AM 1 mg Keena Cha 1 mg VERSED given in lab by Keena Cha, RN in Right Antecubital via Peripheral IV. Ordered by Harlan Arambula. FENTANYL 08/24/2016 9:54:25 AM 50 mcg Keena Cha 50 mcg FENTANYL given in lab by Keena Cha, RN in Right Hand via Peripheral IV. Ordered by Harlan Pacheco. 1% XYLOCAINE 08/24/2016 9:58:57 AM 10 mL Harlan Isaac 10 mL 1% XYLOCAINE given in lab by Harlan Isaac in Right Radial via Subcutaneous. Ordered by Harlan Arambula. RADIAL COCKTAIL 08/24/2016 10:01:16 AM 5 mL (Bolus) Harlan Isaac 5 mL (Bolus) RADIAL COCKTAIL given in lab by Harlan Isaac via Radial. Using [Solution Name]. Ord ered by Harlan Isaac. 4,000u heparin,2.5mg verapamil, 200mg nitro FENTANYL 08/24/2016 10:05:00 AM 25 mcg Keena Cha 25 mcg FENTANYL given in lab by Keena Cha, RN in Right Hand via Peripheral IV. Ordered by Harlan Pacheco. OXYGEN 08/24/2016 10:06:17 AM 2 l/min Keena Cha 2 l/min OXYGEN given in lab by Keena Cha, BUD via Nasal. Ordered by Harlan Isaac. Medication (Drip) Medication Time Given Dosage/Unit Concentration/Unit Diluent (ml) Solution IV Solutions 08/24/2016 9:34:48 AM 0 mL (IV) NaCl .9 IV Solutions given in lab by Keena Cha RN in Right Antecubital via Peripheral IV. Pump/Drip Po w = 20 ml/hr using NaCl .9. Ordered by Harlan Isaac. Initial Case Assessment Cardiovascular HR NIBP 73 170/108 Edema Present Skin color Skin None Normal Warm Dry Circulatory - Right Pulses Dorsalis Pedis Femoral Radial 1 1 1 Scale (0,1,2,3,4,d) Circulatory - Left Pulses Dorsalis Pedis Femoral Radial 1 1 Scale (0,1,2,3,4,d) Neurological State Oriented to time-place- Alert Moves all extremities person Respiration - General Respiration Rate SpO2 (%) (B/min) 12 96 Chronological Log Time Study Chronological Log 9:34:34 Patient arrived via Bed. 9:34:36 Patient Name, D.O.B, / Armband Verified By R.N. 9:34:36 Consent signed by the physician and the patient and verified by the Splicing Supervisor staff. 9:34:37 Pre-op and post- op instructions given; patient acknowledges understanding of instructions. 9:34:39 Patient has been NPO for More than 6Hrs. 9:34:40 Skin Breakdown- 9:34:42 Patient Warmer Placed on the Table. 9:34:43 Lidia Prominences Protected 9:34:47 A # 20 IV was noted in the Hand (right). Grade = 0 IV Solutions given in lab by Keena Cha, RN in Right Antecubital via Peripheral IV. Pump/Dr ip Flow = 20 ml/hr using 9:34:48 NaCl .9. Ordered by Harlan Isaac. 9:34:49 History and physical on the chart or being dictated. Vitals capture started with the following parameters, Patient=Adult, Interval=5 min, Initial Pr dwmxyg=302 mmHg, 9:34:51 Deflation Rate=5 mmHg 9:34:54 Reference ECG taken 9:35:34 A # 20 IV was noted in the Antecubital (right). Grade = 0 9:35:59 HR=73 bpm, LPQS=992/108 mmhg, SpO2=96.0 %, Resp=12 B/min, Pain=0, Raquel=10, Smith=2 Assessment: Initial Case, HR=73 BPM, MIPT=664/108 mmhg, Edema=None, Color=Normal, Skin = Warm, Dry Right Pulses: Chiki Ped=1, Femoral=1, Radial=1 9:37:05 Left Pulses: Chiki Ped=1, Femoral=1 Neurological: State=Alert, Ox3, GIL Respiration: Resp=12 B/min, SpO2=96 % 9:41:07 HR=78 bpm, BRSO=203/114 mmhg, SpO2=96.0 %, Resp=12 B/min, Pain=0, Raquel=10, Smith=2 9:45:35 HR=71 bpm, BFZE=094/107 mmhg, SpO2=95.0 %, Resp=19 B/min, Pain=0, Raquel=10, Smith=2 9:46:10 Right Radial and right groin prepped with 2% chlorhexidine, and with a 3 min. waiting time. 9:50:28 HR=71 bpm, EGIT=326/95 mmhg, SpO2=94.0 %, Resp=16 B/min, Pain=0, Raquel=10, Smith=2 9:51:24 Pressure channel 1 zero failed. 9:51:52 Pressure channel 1 zeroed. 9:53:47 1 mg VERSED given in lab by Keena Cha, RN in Right Antecubital via Peripheral IV. Order ed by Harlan Isaac. 9:54:25 50 mcg FENTANYL given in lab by Keena Cha, RN in Right Hand via Peripheral IV. Ordered by Harlan Isaac. 9:55:27 HR=78 bpm, NECD=361/94 mmhg, SpO2=95.0 %, Resp=14 B/min, Pain=0, Raquel=10, Smith=2 Time Out. Correct patient, correct procedure,correct physician, ,power injector loaded or not l oaded with contrast with 9:56:30 surgical team present. Time Out Concurred by MD, individual staff and DRIVER MEDIC in procedure 9:57:43 Case Start 10 mL 1% XYLOCAINE given in lab by Harlan Isaac in Right Radial via Subcutaneous. Ordered by Poncho 9:58:57 Harlan. 10:00:41 Access site was Radial Artery. A SHEATH, FR6 TRANSRADIAL SLENDER 10CM FR 6 was advanced into the Radial (right) using the Alicja fied Seldinger 10:00:52 technique. 5 mL (Bolus) RADIAL COCKTAIL given in lab by Harlan Isaac via Radial. Using [Solution Name ]. Ordered by 10:01:16 Harlan Isaac. 4,000u heparin,2.5mg verapamil, 200mg nitro 10:01:19 HR=76 bpm, TDDT=770/67 mmhg, SpO2=95.0 %, Resp=12 B/min, Pain=0, Raquel=10, Smith=2 A JR 4.0 INFINITI CATHETER FR 5 was advanced over a wire. OMNIPAQUE, 350 MG, 150ML 150ML was us ed for 10:03:30 injections. Recorded Pressure: LV, HR=86, Condition=Condition 1 10:04:46 (Left Ventricle) LV 162/6/12 10:05:00 25 mcg FENTANYL given in lab by Keena Cha, RN in Right Hand via Peripheral IV. Ordered by Harlan Isaac. Recorded Pressure: LV, Ao, HR=81, Condition=Condition 1 10:05:24 (Left Ventricle) LV 155/6/13, (Aorta) Ao 153/97/121 10:06:06 HR=81 bpm, WHFY=937/108 mmhg, SpO2=91 %, Resp=10 B/min, Pain=0, Raquel=10, Smith=2 10:06:17 2 l/min OXYGEN given in lab by Keena Cha, BUD via Nasal. Ordered by Harlan Isaac. Recorded Pressure: Ao, HR=77, Condition=Condition 1 10:06:18 (Aorta) Ao 156/105/127 10:06:32 The RCA was injected and visualized at various angles. OMNIPAQUE, 350 MG, 150ML 150ML used . After removing the current catheter a JL 3.5 INFINITI CATHETER FR 5 was advanced over a WIRE, E XCHANGE 260CM 10:06:54 3MMJ 260CM. 10:10:19 The LCA was injected and visualized at various angles. OMNIPAQUE, 350 MG, 150ML 150ML used . 10:11:09 HR=76 bpm, EUGU=830/109 mmhg, SpO2=97 %, Resp=11 B/min, Pain=0, Raquel=10, Smith=2 10:14:33 A WIRE, EXCHANGE 260CM 3MMJ 260CM was inserted via Radial (right). 10:14:46 Catheter was removed 10:15:02 Catheter(s) removed without difficulty 10:15:35 HR=81 bpm, HYDJ=109/113 mmhg, SpO2=97 %, Resp=15 B/min, Pain=0, Raquel=10, Smith=2 10:17:04 Case End Radial Compression Device Used. 15 mLs of air placed in BAND, RADIAL COMPRESSION TR LARGE 29 29 CM. Affected 10:17:30 hand 98 % O2 saturation. 10:21:15 HR=76 bpm, FYLG=340/94 mmhg, SpO2=97.0 %, Pain=0, Raquel=10, Smith=2 10:21:20 No case complications noted. 10:21:23 Vitals capture stopped. 10:21:54 Cine recording checked. 10:21:59 Bedside Report will be given. 10:22:01 Contrast Scanned 10:22:11 A Left Heart Cath was performed. 10:22:12 [facility] Study - Contrast Media Used In Study Contrast Total Opened (mL) Total Used (mL) Total Wasted (mL) Omnipaque 45 45 0 End Study - Maximum Contrast Load Max Contrast Load (mL) 452.3 End Study - Radiation Exposure Fluoro Time (minutes) 3.6 End Study - Patient Disposition Complications Transferred To Telemetry [facility]
[2016-08-24] MEDS ORDERED: MISC INFORMATION XX ONE (10:45)
[2016-08-24] MEDS: ACETAMINOPHEN/HYDROcodone 325 MG/7.5 MG TAB PO PRN (10:54)
[2016-08-24] MEDS: cloNIDine HCL 0.1 MG TAB PO PRN ×2 (12:33→22:59)
--- NOTE | 2016-08-24 14:26 | MA ---
cc: BETINA AMBRIZ DO DATE OF PROCEDURE 08/24/16 PROCEDURE Left heart catheterization, coronary angiogram, moderate sedation 20 minutes. PREPROCEDURE DIAGNOSIS Unstable angina on multiple antianginals, abnormal stress test. POSTPROCEDURE DIAGNOSIS Multivessel coronary artery disease for consideration of CT surgery. MEDICATIONS 1. Versed 1 milligram. 2. Fentanyl 75 micrograms. 3. Heparin 4000 units. 4. Verapamil 2.5 milligrams. 5. Nitro 200 micrograms. CONTRAST 45 cc. Moderate sedation 20 minutes PROCEDURAL SUMMARY Mauri Damon is a pleasant 56-year-old male who presented to [facility] Emergency Room due to chest pain. Concern was that his chest pain was typical sounding and he was on multiple antianginals. He underwent stress testing which showed a small area of the lateral apical wall but due to his symptoms it was felt that he should undergo cardiac catheterization. Risks, benefits and alternatives were explained to him and he was consented as such. He was brought to the lab and prepped in the usual sterile fashion. Right radial artery was accessed using a modified Seldinger technique and placement of a 5/6 Albanian slender sheath. This was easily aspirated and flushed. JR-4 was advanced over a J-wire to the ascending aorta and across the aortic valve into the left ventricle for a measurement of pressures. This was pulled back across the aortic valve showing no significant gradient of aortic stenosis. JR-4 was then used for selective angiography of the right coronary system. This was then exchanged for a JL-3.5 which was used for selective angiography of the left coronary system. JL-3.5 was removed over a J-wire. Radial band was placed across the arteriotomy site for hemostasis. The patient left the powerhouse laborer cardiovascularly stable. FINDINGS Left main: Short with no significant disease, bifurcating into an LAD and circumflex artery. LAD: Is overall a normal-size vessel with no significant disease in the proximal section. The midportion has a 70% lesion which is focal in nature. There are two diagonals with the first diagonal being a very small branch with diffuse 50-60% disease. The second diagonal branch does not have any significant disease. Left circumflex is a normal-size vessel with 20% disease in the proximal portion. In the first obtuse marginal there is an 80% lesion. The first branch of the obtuse marginal has a 90% lesion but is a small vessel overall. RCA is a dominant vessel in nature with no significant disease through the proximal mid and distal portion. It does give off a PDA which is a normal-size vessel but does have an 80% stenosis. Left ventricular end-diastolic pressure 13. IMPRESSION 1. Unstable angina on multiple antianginal medications. 2. Accelerated hypertension. 3. Abnormal pharmacologic nuclear stress test. 4. Multivessel coronary artery disease as above. RECOMMENDATIONS 1. Because Mr. Damon has multivessel coronary artery disease with essentially triple-vessel disease I felt that he should at least be considered for possible coronary artery bypass grafting. 2. Will check a 2-D echo to look at his overall left ventricular function, cardiac structure and possible valvulopathies. 3. If he is turned down for surgery or he decides to not have coronary artery bypass grafting then I will discuss with him multivessel PCI but would need echocardiogram beforehand to help plan the case. 4. I spoke to Dr. Kennedy about the case and he will see him in consultation for consideration of CABG. Thank you for allowing me to see Mauri Damon. If there are any questions please do not hesitate to call. Betina Ambriz DO VGP/EO /1:37 PM /2:19 PM
[2016-08-24] MEDS: MUPIROCIN 2% OINT 1 APPLIC/GM SYR EACH NARE SCH ×2 (14:30→20:33)
[2016-08-24] MEDS ORDERED: PAPAVERINE INJ 60 MG, NITROGLYCERIN INJ 100 MCG, DILTIAZEM INJ 100 MG in SODIUM CHLORID... IRRIGATION SCH (14:30)
[2016-08-24] MEDS ORDERED: CHLORHEXIDINE GLUCONATE 4% SOLN 120 ML BTL TOPICAL SCH (14:30)
[2016-08-24] MEDS ORDERED: INSULIN REGULAR (IV INFUSION) 100 UNITS in SODIUM CHLORIDE 0.9% INJ 100 ML IV SCH (14:30)
[2016-08-24] MEDS ORDERED: METOPROLOL TARTRATE 25 MG TAB PO SCH (14:30)
[2016-08-24] MEDS ORDERED: CEFAZOLIN INJ 500 MG in SODIUM CHLORIDE 0.9% IRR BTL 500 ML IRRIGATION SCH (14:30)
[2016-08-24] MEDS ORDERED: ceFAZolin 2 GM PREMIX 50 ML IV SCH (14:30)
--- NOTE | 2016-08-24 14:41 | ECHRPT ---
Indication: Hypertensive heart disease without heart failure CONCLUSIONS The left ventricular systolic function is normal with an estimated ejection fraction in the range of 50-55%. mild mitral valve regurgitation. Mild calcification of the tip of the anterior mitral valve leaflet. Mild aortic valve sclerosis is present. BP: 177 / 105 HR: 94 Rhythm: MEASUREMENTS (Male / Female) Normal Values Technical Quality: 2D ECHO LV Diastolic Diameter PLAX 4.2 cm 4.2 - 5.9 / 3.9 - 5.3 cm LV Systolic Diameter PLAX 3.1 cm IVS Diastolic Thickness 1.2 cm 0.6 - 1.0 / 0.6 - 0.9 cm LVPW Diastolic Thickness 0.9 cm 0.6 - 1.0 / 0.6 - 0.9 cm LV Relative Wall Thickness 0.5 RV Internal Dim ED PLAX 1.9 cm LA Systolic Diameter LX 3.7 cm 3.0 - 4.0 / 2.7 - 3.8 cm M-MODE AV Cusp Separation MM 2.1 cm DOPPLER Mitral E Point Velocity 57.8 cm/s Mitral A Point Velocity 80.5 cm/s Mitral E to A Ratio 0.7 TR Peak Velocity 244.0 cm/s TR Peak Gradient 23.8 mmHg FINDINGS LEFT VENTRICLE Normal left ventricular size and wall thickness. The left ventricular systolic function is normal wi th an estimated ejection fraction in the range of 50-55%. Left ventricular diastolic function parameters a re normal. RIGHT VENTRICLE Normal right ventricular size and systolic function. LEFT ATRIUM The left atrial size is normal. RIGHT ATRIUM The right atrial size is normal. ATRIAL SEPTUM Thickened atrial septum is suspected. AORTA The aortic root and proximal ascending aorta are normal in size on limited imaging. MITRAL VALVE mild mitral valve regurgitation. Mild calcification of the tip of the anterior mitral valve leaflet. AORTIC VALVE Mild aortic valve sclerosis is present. TRICUSPID VALVE Structurally normal tricuspid valve. No tricuspid valve stenosis or regurgitation. PULMONARY VALVE The pulmonary valve is not well visualized. VESSELS The inferior vena cava is normal in size. PERICARDIUM No pericardial effusion. Praveen Enriquez MD (Electronically Signed) Final Date:24 August 2016 14:40
--- NOTE | 2016-08-24 14:43 | PD.CONS ---
History of Present Illness Service CT Surgery Consult Requested By Dr. Isaac Reason for Consult unstable angina, multivessel CAD Primary Care Physician No Primary Care Physician Diagnoses: (1) Chest pain (2) CAD (coronary artery disease) History of Present Illness 56 y/o male presents with crescendo angina. He presented and underwent a stress test which showed a lateral wall abnormality. His symptoms persisted and Dr. Isaac performed a left heart cath today which shows multivessel CAD. He also had an echo which shows normal LV function. He is being considered for CABG. Review of Systems Constitutional: COMPLAINS OF: Diaphoretic episodes, Fatigue, DENIES: Fever, Weight gain, Weight loss, Chills, Dizziness, Change in appetite, Night Sweats Endocrine: DENIES: Heat/cold intolerance, Polydipsia, Polyuria, Polyphagia Eyes: DENIES: Blurred vision, Diplopia, Eye inflammation, Eye pain, Vision loss , Photosensitivity, Double Vision Ears, nose, mouth, throat: DENIES: Tinnitus, Hearing loss, Vertigo, Nasal discharge, Oral lesions, Throat pain, Hoarseness, Ear Pain, Running Nose, Epistaxis, Sinus Pain, Toothache, Odynophagia Respiratory: DENIES: Apneas, Cough, Snoring, Wheezing, Hemoptysis, Sputum production, Shortness of breath Cardiovascular: COMPLAINS OF: Chest pain, DENIES: Palpitations, Syncope, Dyspnea on Exertion, PND, Lower Extremity Edema, Orthopnea, Claudication Gastrointestinal: DENIES: Abdominal pain, Black stools, Bloody stools, Constipation, Diarrhea, Nausea, Vomiting, Difficulty Swallowing, Anorexia Genitourinary: DENIES: Sexual dysfunction, Urinary frequency, Urinary incontinence, Urgency, Hematuria, Dysuria, Nocturia, Penile Discharge, Testicular Pain, Testicular Swelling Musculoskeletal: DENIES: Joint pain, Muscle aches, Stiffness, Joint Swelling, Back pain, Neck pain Integumentary: DENIES: Abnormal pigmentation, Nail changes, Pruritus, Rash Hematologic/lymphatic: DENIES: Bruising, Lymphadenopathy Immunologic/allergic: DENIES: Eczema, Urticaria Neurologic: DENIES: Abnormal gait, Headache, Localized weakness, Paresthesias, Seizures, Speech Problems, Tremor, Poor Balance Psychiatric: DENIES: Anxiety, Confusion, Mood changes, Depression, Hallucinations, Agitation, Suicidal Ideation, Homicidal Ideation, Delusions Past Family Social History Allergies: Coded Allergies: No Known Allergies (Verified , 08/22/16) Past Medical History HTN Reported Medications ASA 81 mg qd Active Ordered Medications Current Medications Medications (Trade) Dose Ordered Sig/Juan C Route Start Time Stop Time Status Last Admin (NS Flush) 2 ml UNSCH PRN IV FLUSH 08/23/16 00:00 (NS Flush) 2 ml BID .XX 08/23/16 09:00 08/24/16 08:24 (Tylenol) 500 mg Q4H PRN PO 08/23/16 08:00 ([place] 7.5-325 Mg) 1 tab Q4H PRN PO 08/23/16 08:00 08/24/16 10:54 (Morphine Inj) 2 mg Q4H PRN IV 08/23/16 08:00 (Zofran Inj) 4 mg Q6H PRN IV 08/23/16 08:00 (Nitrostat Sl) 0.4 mg Q5M PRN SL 08/23/16 08:00 (Catapres) 0.1 mg Q6H PRN PO 08/23/16 08:00 08/24/16 12:33 (Norvasc) 5 mg DAILY PO 08/23/16 09:00 08/24/16 08:20 (Prinivil) 20 mg DAILY PO 08/23/16 09:00 08/24/16 08:21 (Lipitor) 40 mg HS PO 08/23/16 21:00 08/23/16 19:50 (Lopressor) 25 mg Q12HR PO 08/24/16 09:00 08/24/16 08:20 (Ecotrin Ec) 81 mg DAILY PO 08/24/16 09:00 08/24/16 08:21 Family History Significant h/o heart disease and HTN Social History Former 1ppd smoker, quit ~3 yrs ago Works for [employer] Denies ETOH, drugs Physical Exam Vital Signs Vital Signs Date Time Temp Pulse Resp B/P Pulse Ox O2 Delivery O2 Flow Rate FiO2 08/24/16 14:15 68 08/24/16 13:10 95 08/24/16 12:50 74 08/24/16 11:50 97 08/24/16 11:35 97.6 77 16 154/72 97 08/24/16 11:00 74 08/24/16 09:00 76 08/24/16 08:00 98.0 87 16 139/85 96 08/24/16 08:00 86 08/24/16 07:00 74 08/24/16 05:19 98.3 88 18 145/80 95 08/24/16 00:30 97.8 83 16 121/58 94 08/24/16 00:00 83 08/23/16 22:00 87 08/23/16 20:40 93 21 08/23/16 18:17 160/92 08/23/16 18:10 79 08/23/16 16:00 97.8 93 16 162/110 92 Physical Exam GENERAL: This is a well-nourished, well-developed patient, in no apparent distress. SKIN: No rashes, ecchymoses or lesions. Cool and dry. HEAD: Atraumatic. Normocephalic. No temporal or scalp tenderness. EYES: Pupils equal round and reactive. Extraocular motions intact. No scleral icterus. No injection or drainage. ENT: Nose without bleeding, purulent drainage or septal hematoma. Throat without erythema, tonsillar hypertrophy or exudate. Uvula midline. Airway patent. NECK: Trachea midline. No JVD or lymphadenopathy. Supple, nontender, no meningeal signs. CARDIOVASCULAR: Regular rate and rhythm without murmurs, gallops, or rubs. RESPIRATORY: Clear to auscultation. Breath sounds equal bilaterally. No wheezes , rales, or rhonchi. GASTROINTESTINAL: Abdomen soft, non-tender, nondistended. No hepato-splenomegaly , or palpable masses. No guarding. MUSCULOSKELETAL: Extremities without clubbing, cyanosis, or edema. No joint tenderness, effusion, or edema noted. No calf tenderness. Negative Homans sign bilaterally. NEUROLOGICAL: Awake and alert. Cranial nerves II through XII intact. Motor and sensory grossly within normal limits. Five out of 5 muscle strength in all muscle groups. Normal speech. Result Diagram: 08/22/16213908/22/162139 Imaging Last Impressions Myocardial Perfusion Scan Nuc Med 08/23/16 1008 Signed Impressions: Service Date/Time: July 11:46 - CONCLUSION: Small questionably reversible area of diminished perfusion involving the lateral apical region. RISK CATEGORY: Low (<1%% Annual Mortality Rate) Pierce Morales MD CT Angiography 6/28/17 2210 Signed Impressions: Service Date/Time: Monday, August 22, 2016 22:42 - CONCLUSION: The study is negative for pulmonary embolism. Gigi Bryson MD Chest X-Ray 08/22/162138 Signed Impressions: Service Date/Time: Monday, August 22, 2016 21:43 - CONCLUSION: No acute disease. Brian Ferrera MD Course Denies chest pain currently, stable post cath Assessment and Plan Problem List: (1) CAD (coronary artery disease) Status: Acute (2) Chest pain Status: Acute Assessment and Plan I reviewed his cath films and recommend CABG. Risks and benefits were discussed and he agrees to proceed. STS risk follows: RISK SCORES About the STS Risk Calculator Procedure: CAB Only Risk of Mortality: 0.371% Morbidity or Mortality: 7.756% Long Length of Stay: 2.059% Short Length of Stay: 66.031% Permanent Stroke: 0.614% Prolonged Ventilation: 4.998% DSW Infection: 0.231% Renal Failure: 1.573% Reoperation: 3.364% Will schedule CABG for 08/27/16 Problem Qualifiers (1) Chest pain: Qualified Code: R07.9 - Chest pain, unspecified type (2) CAD (coronary artery disease): Qualified Code: I25.110 - Coronary artery disease involving squaxin coronary artery of squaxin heart with unstable angina pectoris Park Kennedy MD Aug 24, 2016 14:43
[2016-08-24 16:48] LABS: BLOOD, URINE NEG (NEG); COMMENT (UR) CULT NOT INDICATED; CULTURE IF INDICATED CULT NOT INDICATED; GLUCOSE,URINE NEG (NEG); KETONE, URINE NEG (NEG); MUCUS URINE FEW /lpf (OCC); NITRITE,URINE NEG (NEG); PH, URINE 5.5 (5.0-8.5); URINE COLOR YELLOW (YELLW/STRAW)
--- NOTE | 2016-08-24 17:00 | RADRPT ---
EXAM DATE/TIME: 08/24/2016 15:45 [facility] COMPARISON: No previous studies available for comparison. INDICATIONS : Preop cardiac surgery. MEDICAL HISTORY : Hypertension. Left arm numbness. Chest pain. SURGICAL HISTORY : Lower back surgery. Bilateral feet corrective surgery. Cardiac cath. ENCOUNTER: Initial ACUITY: 1 day PAIN SCORE: 0/10 LOCATION: Bilateral leg. GREATER SAPHENOUS VEIN THIGH: PROXIMAL: Right 5 mm Left 4 mm MID: Right 3 mm Left 2 mm DISTAL: Right 2 mm Left 4 mm CALF: PROXIMAL: Right 1 mm Left 3 mm MID: Right 1 mm Left 2 mm DISTAL: Right 2 mm Left 3 mm FINDINGS: The venous system of the lower extremities are patent by color Doppler imaging. Measurements of the leg veins (in mm) are listed above. CONCLUSION: Patent saphenous veins as above Pierce Morales MD on August 24, 2016 at 16:57 Board Certified Radiologist. This report was verified electronically.
--- NOTE | 2016-08-24 17:00 | RADRPT ---
EXAM DATE/TIME: 08/24/2016 15:28 [facility] COMPARISON: No previous studies available for comparison. INDICATIONS : Preop cardiac surgery. MEDICAL HISTORY : Hypertension. Left arm numbness. Chest pain. SURGICAL HISTORY : Lower back surgery. Bilateral feet corrective surgery. Cardiac cath. ENCOUNTER: Initial ACUITY: 1 day PAIN SCORE: 0/10 LOCATION: Bilateral legs. TECHNIQUE: Venous ultrasound of the left and right leg was performed from the inguinal ligament to the proximal calf. Real-time, color Doppler and spectral tracing, compression and augmentation techniques were us ed. FINDINGS: RIGHT LEG: There is normal compressibility of the deep venous system from the inguinal region to the proximal ca lf. No echogenic clot is seen in the lumen of the common femoral, femoral, popliteal, and posterior tibial veins. There is a normal response of the venous system to proximal and distal augmentation an d respiration. LEFT LEG: There is normal compressibility of the deep venous system from the inguinal region to the proximal ca lf. No echogenic clot is seen in the lumen of the common femoral, femoral, popliteal, and posterior tibial veins. There is a normal response of the venous system to proximal and distal augmentation an d respiration. CONCLUSION: Normal examination. Pierce Morales MD on August 24, 2016 at 16:58 Board Certified Radiologist. This report was verified electronically.
--- NOTE | 2016-08-24 17:18 | RADRPT ---
EXAM DATE/TIME: 08/24/2016 16:21 [facility] COMPARISON: No previous studies available for comparison. INDICATIONS : Preop cardiac surgery. MEDICAL HISTORY : Hypertension. Left arm numbness. Chest pain. SURGICAL HISTORY : Lower back surgery. Bilateral feet corrective surgery. Cardiac cath. ENCOUNTER: Initial ACUITY: 1 day PAIN SCORE: 0/10 LOCATION: Bilateral neck PEAK SYSTOLIC VELOCITIES (cm/sec): ICA/CCA RATIO: Right: 0.9 Left: 1.2 ICA: Right: 100 Left: 106 CCA: Right: 118 Left: 86 ECA: Right: 140 Left: 98 VERTEBRAL: Right: 58 antegrade Left: 98 antegrade Elevated flow velocities and ICA/CCA ratios have been found to correlate with increased degrees of vessel stenosis, calculated as percentage of diameter relative to a normal segment of distal ICA/CCA FINDINGS: RIGHT CAROTID: No significant stenosis is visualized. The waveforms are within normal limits. LEFT CAROTID: No significant stenosis is visualized. The waveforms are within normal limits. VERTEBRAL ARTERIES: Antegrade flow is seen in both vertebral arteries. MISCELLANEOUS: None. CONCLUSION: No evidence of flow-limiting carotid stenosis. Pierce Morales MD on August 24, 2016 at 17:15 Board Certified Radiologist. This report was verified electronically.
[2016-08-24 18:05] LABS: AUTOMATED NEUTROPHIL # 2.9 TH/MM3 (1.8-7.7); BASOPHIL # 0.1 TH/MM3 (0-0.2); BASOPHIL % 0.9 % (0.0-2.0); EOSINOPHIL # 0.2 TH/MM3 (0-0.4); EOSINOPHIL % 2.4 % (0.0-4.0); HEMATOCRIT 44.4 % (39.0-51.0); HEMO FLAGS DIFF FINAL; LYMPH % 45.3 % (9.0-44.0); LYMPHOCYTE # 3.3 TH/MM3 (1.0-4.8); MEAN CELL VOLUME 83.9 FL (80.0-100.0); MEAN CORPUSCULAR HEMOGLOBIN 27.4 PG (27.0-34.0); MEAN CORPUSCULAR HGB CONC 32.6 % (32.0-36.0); MONO % 11.9 % (0.0-8.0); NEUT % 39.5 % (16.0-70.0); PLATELET COUNT 219 TH/MM3 (150-450); RED BLOOD COUNT 5.29 MIL/MM3 (4.50-5.90); RED CELL DISTRIBUTION WIDTH 14.1 % (11.6-17.2); WHITE BLOOD COUNT 7.3 TH/MM3 (4.0-11.0)
[2016-08-24 18:13] LABS: APTT (PATIENT) 26.3 SEC (24.3-30.1); INTERNATIONAL NORMALIZED RATIO 0.9 RATIO; PROTHROMBIN TIME - PATIENT 10.2 SEC (9.8-11.6)
[2016-08-24 18:29] LABS: ALT (GPT) 30 U/L (12-78); ANION GAP 6 MEQ/L (5-15); AST (GOT) 19 U/L (15-37); BICARBONATE 27.4 MEQ/L (21.0-32.0); BLOOD UREA NITROGEN 17 MG/DL (7-18); CHLORIDE 108 MEQ/L (98-107); GLOMERULAR FILTRATION RATE 85 ML/MIN (>89); POTASSIUM 4.1 MEQ/L (3.5-5.1); SODIUM (NA) 141 MEQ/L (136-145)
[2016-08-24 18:31] LABS: ALKALINE PHOSPHATASE 81 U/L (45-117); TOTAL BILIRUBIN ADULT 0.4 MG/DL (0.2-1.0)
[2016-08-24] MEDS: ATORVASTATIN 40 MG TAB PO SCH (20:30)
--- NOTE | 2016-08-24 20:38 | MB ---
cc: BETINA AMBRIZ DO DATE OF CONSULTATION 08/24/16 REASON FOR CONSULTATION Chest pain with abnormal stress test. HISTORY OF PRESENT ILLNESS Mauri Damon is a pleasant 56-year-old male who originally presented to [facility] emergency room due to chest pain. He states that starting a few days ago he was experiencing pain across the center of his chest and up the left side of his neck. He describes it as tightness and radiating somewhat through the left neck into the left side of the jaw. Occasionally, he felt his left arm somewhat numb. He also has had some diaphoresis with it, but denies nausea, vomiting or shortness of breath. He underwent pharmacologic nuclear stress testing and it did show a small area of ischemia. Because of this, he was transferred to [facility] for consideration of cardiac catheterization. PAST MEDICAL HISTORY Hypertension. PAST SURGICAL HISTORY Denies. ALLERGIES NO KNOWN DRUG ALLERGIES. MEDICATIONS 1. Aspirin 81 mg daily. 2. Previously on Norvasc and Lisinopril but it appears that he was stopped from these medications at some point. FAMILY HISTORY Mother has a history of congestive heart failure. Brother has history of hyperlipidemia. Denies premature coronary artery disease or sudden cardiac within the family. SOCIAL HISTORY The patient previously smoked but quit three years ago. He used to smoke a pack over a few days. Denies current tobacco, alcohol or drug abuse. REVIEW OF SYSTEMS 14-systems were reviewed including osteopathic. Pertinent positives and negatives above otherwise negative. PHYSICAL EXAMINATION VITAL SIGNS: Temperature 98.0, heart rate 86, blood pressure 139/85, respirations 16, pulse ox 96% on room air. GENERAL: The patient appears well in no acute distress, alert awake and oriented x3. HEENT: Extraocular muscles intact. Mucous membranes moist. NECK: Supple. No JVD at 45 degrees, no carotid bruits heard bilaterally. Carotid upstroke is brisk in nature. HEART: Regular rate and rhythm. Positive first and second heart sounds with no murmurs, gallops or rubs. PMI is nondisplaced. LUNGS: Clear to auscultation bilaterally. No wheezes, rales or rhonchi. ABDOMEN: Soft, nontender, nondistended. No organomegaly noted. EXTREMITIES: No clubbing, cyanosis or edema. Femoral and distal pulses intact bilaterally. NEUROLOGIC: No focal deficits. SKIN: Warm, dry and intact. OSTEOPATHIC: No kyphoscoliosis, lordosis or paraspinal tender points. LABORATORY FINDINGS Hemoglobin 14.5, hematocrit 44.4, platelets 219. Potassium 4.1, BUN 17, creatinine 1.09, troponin negative x3. Pharmacologic nuclear stress test (August 23, 2016) small questionable irreversible area of diminished perfusion involving the lateral apical region. CARDIOLOGY STUDIES Electrocardiogram (August 22, 2016 at 21:27) sinus tachycardia, LVH by voltage criteria with nonspecific ST-T wave changes. IMPRESSION 1. Chest pain concerning for anginal equivalent. 2. Mildly abnormal pharmacologic nuclear stress test showing a small area of possible ischemia in the lateral apical region. 3. Hypertension. RECOMMENDATIONS 1. Mr. Damon appears to have presented with chest pain which is concerning for coronary insufficiency with components that definitely sound anginal in nature. His stress test shows mild perfusion defect in the lateral apical region and, although this is a small area, his chest pain is concerning enough that I feel that he should undergo coronary visualization as he has never had definition of his coronary anatomy. 2. Risks, benefits and alternatives were explained to him he consents as such. 3. He did present with accelerated hypertension with blood pressures reaching 200/126. If no coronary artery disease is noted, this may be a potential cause and he should be placed back on antihypertensive medications which were stopped previously. 4. Further recommendations will be made after coronary visualization. Thank you for allowing me to see Mauri Damon. If there are any questions, please do not hesitate to call. Betina Ambriz DO VGP/SA /8:08 PM /8:31 PM
[2016-08-25] VITALS (24 sets, daily range): BP systolic 137–164; BP diastolic 90–106; PULSE 65–115; RESP 16–20; TEMP 97.5–98.4; O2SAT 94–97
[2016-08-25 04:40] LABS: AUTOMATED NEUTROPHIL # 3.3 TH/MM3 (1.8-7.7); BASOPHIL # 0.1 TH/MM3 (0-0.2); BASOPHIL % 0.8 % (0.0-2.0); EOSINOPHIL # 0.2 TH/MM3 (0-0.4); EOSINOPHIL % 2.7 % (0.0-4.0); HEMATOCRIT 44.1 % (39.0-51.0); HEMO FLAGS DIFF FINAL; LYMPH % 42.8 % (9.0-44.0); LYMPHOCYTE # 3.2 TH/MM3 (1.0-4.8); MEAN CELL VOLUME 84.6 FL (80.0-100.0); MEAN CORPUSCULAR HEMOGLOBIN 27.3 PG (27.0-34.0); MEAN CORPUSCULAR HGB CONC 32.3 % (32.0-36.0); MONO % 9.7 % (0.0-8.0); PLATELET COUNT 209 TH/MM3 (150-450); RED BLOOD COUNT 5.21 MIL/MM3 (4.50-5.90); RED CELL DISTRIBUTION WIDTH 14.1 % (11.6-17.2); WHITE BLOOD COUNT 7.6 TH/MM3 (4.0-11.0)
[2016-08-25 04:59] LABS: BICARBONATE 26.5 MEQ/L (21.0-32.0)
[2016-08-25] MEDS: ASPIRIN EC 81 MG TABEC PO SCH (07:46)
[2016-08-25] MEDS: METOPROLOL TARTRATE 25 MG TAB PO SCH ×2 (07:47→20:58)
[2016-08-25] MEDS: amLODIPine BESYLATE 5 MG TAB PO SCH (07:47)
[2016-08-25] MEDS: LISINOPRIL 20 MG TAB PO SCH (07:47)
[2016-08-25] MEDS: SODIUM CHLORIDE 0.9% FLUSH 10 ML FLUSH SCH ×2 (07:48→20:58)
[2016-08-25] MEDS: MUPIROCIN 2% OINT 1 APPLIC/GM SYR EACH NARE SCH ×2 (07:48→20:58)
--- NOTE | 2016-08-25 08:24 | HHI.PR ---
Subjective Remarks Follow-up chest pain. Patient was found to have multivessel disease on cardiac catheterization. He had an episode of chest pain this morning that resolved with morphine. Currently no chest pain. Denies dyspnea. Objective Vitals Vital Signs Date Time Temp Pulse Resp B/P Pulse Ox O2 Delivery O2 Flow Rate FiO2 08/25/16 08:00 82 08/25/16 07:00 73 08/25/16 07:00 97.9 66 20 137/90 95 08/25/16 06:00 74 08/25/16 05:00 77 08/25/16 04:00 72 08/25/16 03:00 68 08/25/16 03:00 97.5 78 18 138/93 95 08/25/16 02:09 68 08/25/16 01:00 72 08/25/16 00:00 65 08/24/16 23:00 78 08/24/16 23:00 98.0 80 18 155/100 96 08/24/16 22:00 82 08/24/16 21:00 98 08/24/16 20:00 94 08/24/16 19:00 80 08/24/16 19:00 98.5 97 18 130/81 95 08/24/16 18:36 79 08/24/16 17:42 87 08/24/16 16:00 78 08/24/16 15:00 94 08/24/16 15:00 97.9 92 19 143/87 97 08/24/16 14:15 68 08/24/16 13:10 95 08/24/16 12:50 74 08/24/16 11:50 97 08/24/16 11:35 97.6 77 16 154/72 97 08/24/16 11:00 74 08/24/16 09:00 76 I/O 08/24/16 08/24/16 08/24/16 08/25/16 08/25/16 08/25/16 07:00 15:00 23:00 07:00 15:00 23:00 Intake Total 0 ml 720 ml 240 ml Output Total 750 ml 350 ml Balance 0 ml -30 ml -110 ml Intake Oral 0 ml 720 ml 240 ml Output Urine Total 750 ml 350 ml # Voids 2 # Bowel Movements 0 1 Result Diagram: 08/25/16 04108/25/16 0410 Imaging Last Impressions Lower Extremity Ultrasound 08/24/16 0000 Signed Impressions: Service Date/Time: Wednesday, August 24, 2016 15:45 - CONCLUSION: Patent saphenous veins as above Pierce Morales MD Carotid Artery Ultrasound 08/24/16 0000 Signed Impressions: Service Date/Time: Wednesday, August 24, 2016 16:21 - CONCLUSION: No evidence of flow-limiting carotid stenosis. Pierce Moraels MD Myocardial Perfusion Scan Nuc Med 08/23/16 1008 Signed Impressions: Service Date/Time: July 11:46 - CONCLUSION: Small questionably reversible area of diminished perfusion involving the lateral apical region. RISK CATEGORY: Low (<1%% Annual Mortality Rate) Pierce Morales MD CT Angiography 08/22/160 Signed Impressions: Service Date/Time: Monday, August 22, 2016 22:42 - CONCLUSION: The study is negative for pulmonary embolism. Gigi Bryson MD Chest X-Ray 08/22/162138 Signed Impressions: Service Date/Time: Monday, August 22, 2016 21:43 - CONCLUSION: No acute disease. Brian Ferrera MD Objective Remarks General: No acute distress. Heart: Regular rate and rhythm. No murmur. Lungs: Clear to auscultation bilaterally. No wheezes, rales, or rhonchi. Breathing is nonlabored. Abdomen: Soft, nontender, nondistended. Extremities: No lower extremity edema. Psych: Alert and oriented. Tearful at times. Procedures 08/24/16 cardiac catheterization Urinary Catheter: No Vascular Central Line Catheter: No A/P Problem List: (1) Chest pain ICD Code: R07.9 Status: Acute (2) Hypertension ICD Code: I10 Status: Chronic (3) CAD (coronary artery disease) ICD Code: I25.10 Status: Chronic Assessment and Plan 1. Coronary artery disease: Appreciate cardiology recommendations. Patient found to have multivessel disease on cardiac catheterization. Appreciate cardiovascular surgery recommendations. Planning for CABG on Saturday morning. Continue aspirin, statin, beta ludmila. Morphine, nitroglycerin as needed. 2. Hypertension: Continue amlodipine, metoprolol, lisinopril. Clonidine as needed. 3. DVT prophylaxis: Lovenox. Problem Qualifiers (1) Chest pain: Qualified Code: R07.9 - Chest pain, unspecified type (2) Hypertension: Qualified Code: I10 - Essential hypertension (3) CAD (coronary artery disease): Qualified Code: I25.110 - Coronary artery disease involving kashia coronary artery of kashia heart with unstable angina pectoris Man Novak MD Aug 25, 2016 08:24
--- NOTE | 2016-08-25 09:20 | PD.CARD.PN ---
Subjective Subjective Remarks The patient denies shortness of breath, palpitations, GI symptoms. He did have 20 minutes of left-sided chest pressure this morning which has resolved. He is pain-free now. Telemetry shows sinus rhythm. Objective Medications Reviewed Vital Signs / I&O Vital Signs Date Time Temp Pulse Resp B/P Pulse Ox O2 Delivery O2 Flow Rate FiO2 08/25/16 09:00 68 08/25/16 08:00 82 08/25/16 07:00 73 08/25/16 07:00 97.9 66 20 137/90 95 08/25/16 06:00 74 08/25/16 05:00 77 08/25/16 04:00 72 08/25/16 03:00 68 08/25/16 03:00 97.5 78 18 138/93 95 08/25/16 02:09 68 08/25/16 01:00 72 08/25/16 00:00 65 08/24/16 23:00 78 08/24/16 23:00 98.0 80 18 155/100 96 08/24/16 22:00 82 08/24/16 21:00 98 08/24/16 20:00 94 08/24/16 19:00 80 08/24/16 19:00 98.5 97 18 130/81 95 08/24/16 18:36 79 08/24/16 17:42 87 08/24/16 16:00 78 08/24/16 15:00 94 08/24/16 15:00 97.9 92 19 143/87 97 08/24/16 14:15 68 08/24/16 13:10 95 08/24/16 12:50 74 08/24/16 11:50 97 08/24/16 11:35 97.6 77 16 154/72 97 08/24/16 11:00 74 I/O 08/24/16 08/24/16 08/24/16 08/25/16 08/25/16 08/25/16 07:00 15:00 23:00 07:00 15:00 23:00 Intake Total 0 ml 720 ml 240 ml Output Total 750 ml 350 ml Balance 0 ml -30 ml -110 ml Intake Oral 0 ml 720 ml 240 ml Output Urine Total 750 ml 350 ml # Voids 2 # Bowel Movements 0 1 Physical Exam GENERAL: Well-nourished, well-developed patient in no apparent distress. SKIN: Warm and dry. NECK: JVD normal - less than or equal to 5 cm H20. CARDIOVASCULAR: Regular rate and rhythm without murmurs, gallops, or rubs. RESPIRATORY: Normal breath sounds - equal bilaterally. No accessory muscle use. No wheezes, rales or rubs. PERIPHERY: No cyanosis, or edema. Laboratory Laboratory Tests Test 08/24/16 08/24/16 08/24/16 08/25/16 15:30 17:46 18:37 04:10 Urine Color YELLOW Urine Turbidity CLEAR Urine pH 5.5 Urine Specific [place] 1.036 Urine Protein NEG mg/dL Urine Glucose (UA) NEG mg/dL Urine Ketones NEG mg/dL Urine Occult Blood NEG Urine Nitrite NEG Urine Bilirubin NEG Urine Urobilinogen LESS THAN 2.0 MG/DL Urine Leukocyte Esterase NEG Urine WBC LESS THAN 1 /hpf Urine Mucus FEW /lpf Microscopic Urinalysis Comment CULT NOT INDICATED Nasal Screen MRSA (PCR) MRSA NOT DETECTED White Blood Count 7.3 TH/MM3 7.6 TH/MM3 Red Blood Count 5.29 MIL/MM3 5.21 MIL/MM3 Hemoglobin 14.5 GM/DL 14.2 GM/DL Hematocrit 44.4 % 44.1 % Mean Corpuscular Volume 83.9 FL 84.6 FL Mean Corpuscular Hemoglobin 27.4 PG 27.3 PG Mean Corpuscular Hemoglobin 32.6 % 32.3 % Concent Red Cell Distribution Width 14.1 % 14.1 % Platelet Count 219 TH/MM3 209 TH/MM3 Mean Platelet Volume 8.8 FL 9.0 FL Neutrophils (%) (Auto) 39.5 % 44.0 % Lymphocytes (%) (Auto) 45.3 % 42.8 % Monocytes (%) (Auto) 11.9 % 9.7 % Eosinophils (%) (Auto) 2.4 % 2.7 % Basophils (%) (Auto) 0.9 % 0.8 % Neutrophils # (Auto) 2.9 TH/MM3 3.3 TH/MM3 Lymphocytes # (Auto) 3.3 TH/MM3 3.2 TH/MM3 Monocytes # (Auto) 0.9 TH/MM3 0.7 TH/MM3 Eosinophils # (Auto) 0.2 TH/MM3 0.2 TH/MM3 Basophils # (Auto) 0.1 TH/MM3 0.1 TH/MM3 CBC Comment DIFF FINAL DIFF FINAL Differential Comment Prothrombin Time 10.2 SEC Prothromb Time International 0.9 RATIO Ratio Activated Partial 26.3 SEC Thromboplast Time Sodium Level 141 MEQ/L 142 MEQ/L Potassium Level 4.1 MEQ/L 4.0 MEQ/L Chloride Level 108 MEQ/L 109 MEQ/L Carbon Dioxide Level 27.4 MEQ/L 26.5 MEQ/L Anion Gap 6 MEQ/L 7 MEQ/L Blood Urea Nitrogen 17 MG/DL 16 MG/DL Creatinine 1.09 MG/DL 1.00 MG/DL Estimat Glomerular Filtration 85 ML/MIN 94 ML/MIN Rate Random Glucose 94 MG/DL 92 MG/DL Calcium Level 8.5 MG/DL 8.6 MG/DL Total Bilirubin 0.4 MG/DL Aspartate Amino Transf 19 U/L (AST/SGOT) Alanine Aminotransferase 30 U/L (ALT/SGPT) Alkaline Phosphatase 81 U/L Total Protein 6.9 GM/DL Albumin 3.5 GM/DL Blood Type O POSITIVE O POSITIVE Antibody Screen NEGATIVE Crossmatch Leukocyte-Reduced Red Blood Cells Blood Bank Comment Imaging I have personally reviewed the catheterization films. Last 48 hours Impressions Lower Extremity Ultrasound 08/24/16 0000 Signed Impressions: Service Date/Time: Wednesday, August 24, 2016 15:45 - CONCLUSION: Patent saphenous veins as above Pierce Morales MD Lower Extremity Ultrasound 08/24/16 0000 Signed Impressions: Service Date/Time: Wednesday, August 24, 2016 15:28 - CONCLUSION: Normal examination. Pierce Morales MD Carotid Artery Ultrasound 08/24/16 0000 Signed Impressions: Service Date/Time: Wednesday, August 24, 2016 16:21 - CONCLUSION: No evidence of flow-limiting carotid stenosis. Pierce Morales MD Myocardial Perfusion Scan Nuc Med 08/23/16 1008 Signed Impressions: Service Date/Time: July 11:46 - CONCLUSION: Small questionably reversible area of diminished perfusion involving the lateral apical region. RISK CATEGORY: Low (<1%% Annual Mortality Rate) Pierce Morales MD Assessment and Plan Assessment and Plan Problems: Unstable angina Hypertension Hyperlipidemia Recommendations: Aspirin, statins and beta blockers. Add nitrates and heparin. Bypass surgery on Saturday if stable. Virgil Bridges MD Aug 25, 2016 09:20
[2016-08-25] MEDS ORDERED: HEPARIN SODIUM - IV 10,000 UNITS/10 ML VIAL IV PRN ×2 (09:45)
[2016-08-25] MEDS ORDERED: HEPARIN SODIUM - IV 10,000 UNITS/10 ML VIAL IV ONE (10:00)
[2016-08-25] MEDS: HEPARIN 25,000 UNITS-D5W 250 ML - PREMIX IV SCH (10:16)
[2016-08-25] MEDS: NITROGLYCERIN 2% OINT 1 GM PACKET TOPICAL SCH ×3 (12:09→23:25)
[2016-08-25 16:21] LABS: APTT (PATIENT) 46.4 SEC (24.3-30.1)
[2016-08-25] MEDS: ATORVASTATIN 40 MG TAB PO SCH (20:58)
[2016-08-25] MEDS: cloNIDine HCL 0.1 MG TAB PO PRN (23:25)
[2016-08-25] MEDS ORDERED: ALPRAZolam 0.25 MG TAB PO ONE (23:45)
[2016-08-26] VITALS (27 sets, daily range): BP systolic 121–152; BP diastolic 82–108; PULSE 63–105; RESP 16–20; TEMP 97.7–98.6; O2SAT 95–97
[2016-08-26] MEDS: NITROGLYCERIN 2% OINT 1 GM PACKET TOPICAL SCH ×4 (05:32→22:21)
[2016-08-26 05:56] LABS: APTT (PATIENT) 42.8 SEC (24.3-30.1)
[2016-08-26] MEDS: ASPIRIN EC 81 MG TABEC PO SCH (07:50)
[2016-08-26] MEDS: LISINOPRIL 20 MG TAB PO SCH (07:50)
[2016-08-26] MEDS: METOPROLOL TARTRATE 25 MG TAB PO SCH ×2 (07:50→22:21)
[2016-08-26] MEDS: amLODIPine BESYLATE 5 MG TAB PO SCH (07:50)
[2016-08-26] MEDS: MUPIROCIN 2% OINT 1 APPLIC/GM SYR EACH NARE SCH ×2 (07:50→22:21)
[2016-08-26] MEDS: SODIUM CHLORIDE 0.9% FLUSH 10 ML FLUSH SCH ×2 (07:51→21:00)
[2016-08-26] MEDS: ACETAMINOPHEN/HYDROcodone 325 MG/7.5 MG TAB PO PRN (07:51)
--- NOTE | 2016-08-26 08:40 | PD.CARD.PN ---
Subjective Subjective Remarks The patient denies chest pain, shortness of breath, GI symptoms or bleeding. Telemetry reveals sinus rhythm. He is on a heparin drip. Objective Medications Reviewed Vital Signs / I&O Vital Signs Date Time Temp Pulse Resp B/P Pulse Ox O2 Delivery O2 Flow Rate FiO2 08/26/16 07:00 98.6 81 20 148/82 97 08/26/16 07:00 75 08/26/16 06:01 72 08/26/16 05:06 78 08/26/16 04:11 80 08/26/16 03:20 98.1 78 16 121/85 97 08/26/16 03:05 74 08/26/16 02:09 72 08/26/16 01:12 96 21 08/26/16 01:01 73 08/26/16 00:00 78 08/25/16 23:32 92 08/25/16 23:32 98.2 82 16 162/106 97 08/25/16 22:55 84 08/25/16 21:42 115 08/25/16 20:15 100 08/25/16 19:20 98 08/25/16 19:20 98.0 107 16 163/105 94 08/25/16 18:00 82 08/25/16 17:00 89 08/25/16 16:00 89 08/25/16 15:00 98.3 97 20 158/92 95 08/25/16 15:00 96 08/25/16 14:00 91 08/25/16 13:00 80 08/25/16 12:00 84 08/25/16 11:00 76 08/25/16 11:00 98.4 76 18 164/96 95 08/25/16 10:00 72 08/25/16 09:00 68 I/O 08/25/16 08/25/16 08/25/16 08/26/16 08/26/16 08/26/16 07:00 15:00 23:00 07:00 15:00 23:00 Intake Total 240 ml 787 ml 586 ml Output Total 350 ml 1590 ml 350 ml Balance -110 ml -803 ml 236 ml Intake Oral 240 ml 720 ml 480 ml IV Total 67 ml 106 ml Output Urine Total 350 ml 1590 ml 350 ml # Voids 2 # Bowel Movements 1 1 Physical Exam GENERAL: Well-nourished, well-developed patient in no apparent distress. SKIN: Warm and dry. NECK: JVD normal - less than or equal to 5 cm H20. CARDIOVASCULAR: Regular rate and rhythm without murmurs, gallops, or rubs. RESPIRATORY: Normal breath sounds - equal bilaterally. No accessory muscle use. No wheezes, rales or rubs. PERIPHERY: No cyanosis, or edema. Laboratory Laboratory Tests Test 08/25/16 08/25/16 08/26/16 15:42 23:24 04:39 Activated Partial 46.4 SEC 40.0 SEC 42.8 SEC Thromboplast Time Assessment and Plan Assessment and Plan Problems: Unstable angina Hypertension Hyperlipidemia Recommendations: Aspirin, statins and beta blockers. Nitrates and heparin. Bypass surgery on Saturday if stable. He will need to follow-up with Dr. Isaac in the office. We will be available if needed. Virgil Bridges MD Aug 26, 2016 08:40
[2016-08-26] MEDS: HEPARIN 25,000 UNITS-D5W 250 ML - PREMIX IV SCH (08:56)
--- NOTE | 2016-08-26 09:37 | HHI.PR ---
Subjective Remarks Follow-up coronary artery disease. Patient denies chest pain or dyspnea. He did have an episode of anxiety, which improved with Xanax. Objective Vitals Vital Signs Date Time Temp Pulse Resp B/P Pulse Ox O2 Delivery O2 Flow Rate FiO2 08/26/16 09:00 78 08/26/16 08:00 82 08/26/16 07:00 98.6 81 20 148/82 97 08/26/16 07:00 75 08/26/16 06:01 72 08/26/16 05:06 78 08/26/16 04:11 80 08/26/16 03:20 98.1 78 16 121/85 97 08/26/16 03:05 74 08/26/16 02:09 72 08/26/16 01:12 96 21 08/26/16 01:01 73 08/26/16 00:00 78 08/25/16 23:32 92 08/25/16 23:32 98.2 82 16 162/106 97 08/25/16 22:55 84 08/25/16 21:42 115 08/25/16 20:15 100 08/25/16 19:20 98 08/25/16 19:20 98.0 107 16 163/105 94 08/25/16 18:00 82 08/25/16 17:00 89 08/25/16 16:00 89 08/25/16 15:00 98.3 97 20 158/92 95 08/25/16 15:00 96 08/25/16 14:00 91 08/25/16 13:00 80 08/25/16 12:00 84 08/25/16 11:00 76 08/25/16 11:00 98.4 76 18 164/96 95 08/25/16 10:00 72 I/O 08/25/16 08/25/16 08/25/16 08/26/16 08/26/16 08/26/16 07:00 15:00 23:00 07:00 15:00 23:00 Intake Total 240 ml 787 ml 586 ml Output Total 350 ml 1590 ml 350 ml Balance -110 ml -803 ml 236 ml Intake Oral 240 ml 720 ml 480 ml IV Total 67 ml 106 ml Output Urine Total 350 ml 1590 ml 350 ml # Voids 2 # Bowel Movements 1 1 Result Diagram: 08/25/16 0410 08/25/16 0410 Imaging Last Impressions Lower Extremity Ultrasound 08/24/16 0000 Signed Impressions: Service Date/Time: Wednesday, August 24, 2016 15:45 - CONCLUSION: Patent saphenous veins as above Pierce Morales MD Carotid Artery Ultrasound 08/24/16 0000 Signed Impressions: Service Date/Time: Wednesday, August 24, 2016 16:21 - CONCLUSION: No evidence of flow-limiting carotid stenosis. Pierce Morales MD Myocardial Perfusion Scan Nuc Med 08/23/16 1008 Signed Impressions: Service Date/Time: July 11:46 - CONCLUSION: Small questionably reversible area of diminished perfusion involving the lateral apical region. RISK CATEGORY: Low (<1%% Annual Mortality Rate) Pierce Morales MD CT Angiography 08/22/160 Signed Impressions: Service Date/Time: Monday, August 22, 2016 22:42 - CONCLUSION: The study is negative for pulmonary embolism. Gigi Bryson MD Chest X-Ray 08/22/162138 Signed Impressions: Service Date/Time: Monday, August 22, 2016 21:43 - CONCLUSION: No acute disease. Brian Ferrera MD Objective Remarks General: No acute distress. Heart: Regular rate and rhythm. No murmur. Lungs: Clear to auscultation bilaterally. No wheezes, rales, or rhonchi. Breathing is nonlabored. Abdomen: Soft, nontender, nondistended. Extremities: No lower extremity edema. Psych: Alert and oriented. Procedures 08/24/16 cardiac catheterization Urinary Catheter: No Vascular Central Line Catheter: No A/P Problem List: (1) Chest pain ICD Code: R07.9 Status: Acute (2) Hypertension ICD Code: I10 Status: Chronic (3) CAD (coronary artery disease) ICD Code: I25.10 Status: Chronic (4) Anxiety disorder due to medical condition ICD Code: F06.4 Status: Acute Assessment and Plan 1. Coronary artery disease: Appreciate cardiology recommendations. Patient found to have multivessel disease on cardiac catheterization. Appreciate cardiovascular surgery recommendations. Planning for CABG tomorrow. Continue aspirin, statin, beta ludmila. Morphine, nitroglycerin as needed. 2. Hypertension: Continue amlodipine, metoprolol, lisinopril. Clonidine as needed. 3. DVT prophylaxis: Lovenox. 4. Anxiety: Patient reports feeling quite anxious about his upcoming surgery. Will add Xanax as needed. Problem Qualifiers (1) Chest pain: Qualified Code: R07.9 - Chest pain, unspecified type (2) Hypertension: Qualified Code: I10 - Essential hypertension (3) CAD (coronary artery disease): Qualified Code: I25.110 - Coronary artery disease involving [place] coronary artery of [place] heart with unstable angina pectoris Man Novak MD Aug 26, 2016 09:37
[2016-08-26] MEDS: ALPRAZolam 0.25 MG TAB PO PRN (17:28)
[2016-08-26] MEDS: ATORVASTATIN 40 MG TAB PO SCH (22:20)
[2016-08-27] VITALS (15 sets, daily range): BP systolic 124–138; BP diastolic 80–94; PULSE 63–93; RESP 16; TEMP 97.7–98.1; O2SAT 94–99
[2016-08-27] MEDS: ALPRAZolam 0.25 MG TAB PO PRN (00:28)
[2016-08-27] MEDS: NITROGLYCERIN 2% OINT 1 GM PACKET TOPICAL SCH ×2 (06:11→12:00)
[2016-08-27 06:23] LABS: APTT (PATIENT) 42.7 SEC (24.3-30.1)
[2016-08-27] MEDS: METOPROLOL TARTRATE 25 MG TAB PO SCH (09:00)
[2016-08-27] MEDS: ASPIRIN EC 81 MG TABEC PO SCH (09:00)
[2016-08-27] MEDS: SODIUM CHLORIDE 0.9% FLUSH 10 ML FLUSH SCH (09:00)
[2016-08-27] MEDS: LISINOPRIL 20 MG TAB PO SCH (09:00)
[2016-08-27] MEDS: amLODIPine BESYLATE 5 MG TAB PO SCH (09:00)
[2016-08-27] MEDS: MUPIROCIN 2% OINT 1 APPLIC/GM SYR EACH NARE SCH (09:00)
--- NOTE | 2016-08-27 11:41 | PD.CARD.PN ---
Subjective Subjective Remarks Patient and decided they wanted to hold off on surgery this morning Currently no chest pain, no shortness of breath Objective Medications Current Medications Medications (Trade) Dose Ordered Sig/Juan C Route Start Time Stop Time Status Last Admin (NS Flush) 2 ml UNSCH PRN IV FLUSH 08/23/16 00:00 (NS Flush) 2 ml BID .XX 08/23/16 09:00 08/27/16 09:00 (Tylenol) 500 mg Q4H PRN PO 08/23/16 08:00 08/25/16 18:06 ([place] 7.5-325 Mg) 1 tab Q4H PRN PO 08/23/16 08:00 08/26/16 07:51 (Morphine Inj) 2 mg Q4H PRN IV 08/23/16 08:00 08/25/16 07:48 (Zofran Inj) 4 mg Q6H PRN IV 08/23/16 08:00 (Nitrostat Sl) 0.4 mg Q5M PRN SL 08/23/16 08:00 08/27/16 06:32 (Catapres) 0.1 mg Q6H PRN PO 08/23/16 08:00 08/25/16 23:25 (Norvasc) 5 mg DAILY PO 08/23/16 09:00 08/27/16 09:00 (Prinivil) 20 mg DAILY PO 08/23/16 09:00 08/27/16 09:00 (Lipitor) 40 mg HS PO 08/23/16 21:00 08/26/16 22:20 (Lopressor) 25 mg Q12HR PO 08/24/16 09:00 08/27/16 09:00 (Ecotrin Ec) 81 mg DAILY PO 08/24/16 09:00 08/27/16 09:00 (Bactroban Nasal 2% Oint) 1 applic BID EACH NARE 08/24/16 14:30 08/29/16 14:29 08/27/16 09:00 Nitroglycerin 1 inch 1 inch Q6HR TOPICAL 08/25/16 12:00 08/27/16 06:11 (Heparin-D5W Inj) 250 ml @ 0 mls/hr TITRATE IV 08/25/16 09:45 08/26/16 08:56 (Heparin Inj) 5,000 units UNSCH PRN IV 08/25/16 09:45 (Heparin Inj) 2,500 units UNSCH PRN IV 08/25/16 09:45 (Xanax) 0.25 mg Q6H PRN PO 08/26/16 09:45 08/27/16 00:28 Vital Signs / I&O Vital Signs Date Time Temp Pulse Resp B/P Pulse Ox O2 Delivery O2 Flow Rate FiO2 08/27/16 11:07 98.0 71 16 124/80 96 08/27/16 11:00 84 08/27/16 10:00 63 08/27/16 09:00 68 08/27/16 08:00 71 08/27/16 08:00 98.1 71 16 134/84 96 08/27/16 07:00 93 08/27/16 06:53 93 08/27/16 05:15 86 08/27/16 04:06 76 08/27/16 03:20 97.7 80 16 138/94 94 08/27/16 03:09 81 08/27/16 02:03 76 08/27/16 01:00 78 08/27/16 00:00 82 08/26/16 23:23 98.0 102 16 134/108 96 08/26/16 23:22 82 08/26/16 22:05 102 08/26/16 21:12 103 08/26/16 21:11 95 08/26/16 20:32 97.7 89 16 138/99 96 08/26/16 20:32 94 08/26/16 18:00 92 08/26/16 17:00 98 08/26/16 16:00 94 08/26/16 15:00 98.0 93 18 152/93 97 08/26/16 15:00 87 08/26/16 14:00 105 08/26/16 13:00 88 08/26/16 12:00 86 I/O 08/26/16 08/26/16 08/26/16 08/27/16 08/27/16 08/27/16 07:00 15:00 23:00 07:00 15:00 23:00 Intake Total 586 ml 958 ml 347 ml Output Total 350 ml 450 ml 500 ml Balance 236 ml 508 ml -153 ml Intake Oral 480 ml 720 ml 240 ml IV Total 106 ml 238 ml 107 ml Output Urine Total 350 ml 450 ml 500 ml # Bowel Movements 1 Physical Exam GENERAL: NAD, AAOx3 SKIN: Warm and dry. HEAD: Atraumatic. Normocephalic. EYES: Pupils equal and round. No scleral icterus. No injection or drainage. ENT: No nasal bleeding or discharge. Mucous membranes pink and moist. NECK: Trachea midline. No JVD. CARDIOVASCULAR: Regular rate and rhythm. RESPIRATORY: No accessory muscle use. Clear to auscultation. Breath sounds equal bilaterally. GASTROINTESTINAL: Abdomen soft, non-tender, nondistended. Hepatic and splenic margins not palpable. MUSCULOSKELETAL: Extremities without clubbing, cyanosis, or edema. No obvious deformities. NEUROLOGICAL: Awake and alert. No obvious cranial nerve deficits. Motor grossly within normal limits. Five out of 5 muscle strength in the arms and legs. Normal speech. PSYCHIATRIC: Appropriate mood and affect; insight and judgment normal. Laboratory Laboratory Tests Test 08/26/16 08/27/16 22:46 05:17 Blood Type O POSITIVE Antibody Screen NEGATIVE Crossmatch Leukocyte-Reduced Red Blood Cells Blood Bank Comment Activated Partial 42.7 SEC Thromboplast Time Assessment and Plan Problem List: (1) Multi-vessel coronary artery stenosis (2) CAD (coronary artery disease) (3) Hypertension (4) Chest pain (5) Anxiety disorder due to medical condition Assessment and Plan 1) Multi-vessel CAD (triple vessel disease) presenting with angina, recommended CT surgery for CABG 2) HTN, better controlled on medications 3) Had 2 separate conversations with the patient and his about not having surgery They would like a second opinion about surgery, offered to have Dr. Maurice see the patient as a second opinion, but they would like to leave [facility] and see someone Explained this was difficult as the patient has known triple vessel disease, presenting with angina, currently on a heparin drip and nitropaste Explained that we would have to stop the heparin drip and removed the nitropaste, and he might start having angina, putting him at risk Also that he would be leaving [facility], at increased risk of/but not limited to angina, [place] and , etc. Also by leaving [facility], his insurance company may not pay for his hospitalization Lastly, for him to get a second opinion at another hospital may take sometime, and further increase his risk of the above Offered multi-vessel stenting, although not ideal for triple vessel disease, but they would like a second opinion on possible CABG Discussed over the phone with the patient's [id number], who per the patient's is a physician, everything above including that he presented with angina, found to have multi-vessel disease, and recommended CABG. [id number] understood, and said he previously instructed them over the weekend that he should undergo CABG if that's his best option Left my office number for his brother to call with other questions or concerns He will further discuss with his family about their options, and let us know what they decided Discussed with CT surgery, they will leave their number in case he leaves AMA and decided then that he wants surgery If he does leave AMA, I explained that if he gets any chest pain/symptoms, that he needs to call 911 and get to a hospital immediately If the patient decides to leave AMA, I ask that he wait at least a few hours to let the heparin/nitropaste to wear off to make sure he's not having any symptoms If he leaves AMA, then he should leave with a prescription for nitro SL and his other medications... discussed with Dr. Martínez Problem Qualifiers (1) CAD (coronary artery disease): Qualified Code: I25.110 - Coronary artery disease involving [place] coronary artery of [place] heart with unstable angina pectoris (2) Hypertension: Qualified Code: I10 - Essential hypertension (3) Chest pain: Qualified Code: R07.9 - Chest pain, unspecified type Harlan Isaac DO Aug 27, 2016 11:41
[2016-08-27] MEDS ORDERED: METO25TA3 PO (11:49)
--- NOTE | 2016-08-27 14:02 | HHI.PR ---
Subjective Remarks Patient seen this morning around 11:30 AM prior to AMA discharge. Patient denies any chest pain or shortness breath. Says he feels well. He has had extensive discussion with cardiology. Wishes to leave AGAINST MEDICAL ADVICE, seek outside second opinion. We discussed potentially fatal ramifications of this. Discussed with cardiology, who recommends discharging AGAINST MEDICAL ADVICE on sublingual nitroglycerin. As nitroglycerin has not been shown to have any statistical benefit in survival, and often delays patient's seeking urgent medical attention, I recommended that patient seek urgent medical attention at the first sign of chest pain. Objective Vital Signs Date Time Temp Pulse Resp B/P Pulse Ox O2 Delivery O2 Flow Rate FiO2 08/27/16 11:07 98.0 71 16 124/80 96 08/27/16 11:00 84 08/27/16 10:00 63 08/27/16 09:00 68 08/27/16 08:00 71 08/27/16 08:00 98.1 71 16 134/84 96 08/27/16 07:00 93 08/27/16 06:53 93 08/27/16 05:15 86 08/27/16 04:06 76 08/27/16 03:20 97.7 80 16 138/94 94 08/27/16 03:09 81 08/27/16 02:03 76 08/27/16 01:00 78 08/27/16 00:00 82 08/26/16 23:23 98.0 102 16 134/108 96 08/26/16 23:22 82 08/26/16 22:05 102 08/26/16 21:12 103 08/26/16 21:11 95 08/26/16 20:32 97.7 89 16 138/99 96 08/26/16 20:32 94 08/26/16 18:00 92 08/26/16 17:00 98 08/26/16 16:00 94 08/26/16 15:00 98.0 93 18 152/93 97 08/26/16 15:00 87 I/O 08/26/16 08/26/16 08/26/16 08/27/16 08/27/16 08/27/16 07:00 15:00 23:00 07:00 15:00 23:00 Intake Total 586 ml 958 ml 347 ml 510 ml Output Total 350 ml 450 ml 500 ml 480 ml Balance 236 ml 508 ml -153 ml 30 ml Intake Oral 480 ml 720 ml 240 ml 480 ml IV Total 106 ml 238 ml 107 ml 30 ml Output Urine Total 350 ml 450 ml 500 ml 480 ml # Bowel Movements 1 0 Result Diagram: 08/25/160 08/25/16 0410 Imaging Last Impressions Lower Extremity Ultrasound 08/24/16 0000 Signed Impressions: Service Date/Time: Wednesday, August 24, 2016 15:45 - CONCLUSION: Patent saphenous veins as above Pierce Morales MD Carotid Artery Ultrasound 08/24/16 0000 Signed Impressions: Service Date/Time: Wednesday, August 24, 2016 16:21 - CONCLUSION: No evidence of flow-limiting carotid stenosis. Pierce Morales MD Myocardial Perfusion Scan Nuc Med 08/23/16 1008 Signed Impressions: Service Date/Time: July 11:46 - CONCLUSION: Small questionably reversible area of diminished perfusion involving the lateral apical region. RISK CATEGORY: Low (<1%% Annual Mortality Rate) Pierce Morales MD CT Angiography 08/22/162209 Signed Impressions: Service Date/Time: Monday, August 22, 2016 22:42 - CONCLUSION: The study is negative for pulmonary embolism. Gigi Bryson MD Chest X-Ray 08/22/162138 Signed Impressions: Service Date/Time: Monday, August 22, 2016 21:43 - CONCLUSION: No acute disease. Brian Ferrera MD Objective Remarks GENERAL: Patient sitting up in bed. Appears comfortable. Alert and oriented 3. SKIN: Warm and dry. HEAD: Normocephalic. EYES: No scleral icterus. No injection or drainage. NECK: Supple, trachea midline. No JVD. CARDIOVASCULAR: Regular rate and rhythm without murmurs, gallops, or rubs. RESPIRATORY: Breath sounds equal bilaterally. No accessory muscle use. GASTROINTESTINAL: Abdomen soft, non-tender, nondistended. MUSCULOSKELETAL: No cyanosis, or edema. BACK: Nontender without obvious deformity. No CVA tenderness. A/P Assessment and Plan ====08/27/16 will be discharged AGAINST MEDICAL ADVICE. //Chest pain //Multivessel coronary artery disease -Patient found to have multivessel disease on cardiac catheterization. Initial plan for CABG, however patient desires second opinion as outpatient. We'll continue aspirin, statin, beta ludmila, amlodipine, metoprolol, lisinopril. Discharge will be AGAINST MEDICAL ADVICE. -Patient advised seek medical attention, and to seek urgent medical attention if he experiences chest pain. //Hypertension. Blood pressure initially elevated, however subtotally well- controlled. Continue medications. //Prophylaxis. Patient was on heparin drip during hospitalization. Discharge Planning will be discharged today AGAINST MEDICAL ADVICE. Zach Martínez MD Aug 27, 2016 14:02
--- NOTE | 2016-08-27 14:37 | PD.CAR.PN ---
CVT Progress Note Subjective/Hospital Course: pt was scheduled for Coronary artery bypass grafting this am , however he changed his mind last night , " said he wanted a second opinion" I personally spoke to patient and his this am, spoke in depth concerning his need for bypass surgery , answered all questions. I told them that Dr Maurice would be back in am, and could offer them his opinion regarding his surgery. At the time he was still on Heparin gtt and Nitro paste. They stated that they did not want a second opinion here, but from an outside facility. I recommended they stay until they spoke with Dr Maurice. But patient and wanted to leave and seek an opinion elsewhere. I notified Dr Isaac, who also spoke with the patient and . I offered them our information to contact us, if they should change their mind. Objective: Vital Signs Date Time Temp Pulse Resp B/P Pulse Ox O2 Delivery O2 Flow Rate FiO2 08/27/16 13:32 99 08/27/16 11:07 98.0 71 16 124/80 96 08/27/16 11:00 84 08/27/16 10:00 63 08/27/16 09:00 68 08/27/16 08:00 71 08/27/16 08:00 98.1 71 16 134/84 96 08/27/16 07:00 93 08/27/16 06:53 93 08/27/16 05:15 86 08/27/16 04:06 76 08/27/16 03:20 97.7 80 16 138/94 94 08/27/16 03:09 81 08/27/16 02:03 76 08/27/16 01:00 78 08/27/16 00:00 82 08/26/16 23:23 98.0 102 16 134/108 96 08/26/16 23:22 82 08/26/16 22:05 102 08/26/16 21:12 103 08/26/16 21:11 95 08/26/16 20:32 97.7 89 16 138/99 96 08/26/16 20:32 94 08/26/16 18:00 92 08/26/16 17:00 98 08/26/16 16:00 94 08/26/16 15:00 98.0 93 18 152/93 97 08/26/16 15:00 87 Labs: Laboratory Tests Test 08/27/16 05:17 Activated Partial 42.7 SEC Thromboplast Time (24.3-30.1) Result Diagram: 08/25/16 0410 08/25/16 0410 (1) Multi-vessel coronary artery stenosis (2) CAD (coronary artery disease) (3) Hypertension (4) Chest pain (5) Anxiety disorder due to medical condition Problem Qualifiers (1) CAD (coronary artery disease): Qualified Code: I25.110 - Coronary artery disease involving [place] coronary artery of [place] heart with unstable angina pectoris (2) Hypertension: Qualified Code: I10 - Essential hypertension (3) Chest pain: Qualified Code: R07.9 - Chest pain, unspecified type Samanta Hoover Aug 27, 2016 14:36
== END 2016-08-27 13:41 | disposition left against medical advice (07) | DRG 287 ==
LOC: PHED 21:21 → PHEDA 08-23 00:03 → PH3A 08-23 01:54 → HCIS 08-23 22:11 → OBSVTOIN 08-24 14:50
PROVIDERS: ADMIT Internal Medicine; ATTEND Internal Medicine
PROC: B2111ZZ Fluoroscopy of Multiple Coronary Arteries using Low Osmolar Contrast (ICD-10-PCS; 2016-08-24)
PROC: 4A023N7 Measurement of Cardiac Sampling and Pressure, Left Heart, Percutaneous Approach (ICD-10-PCS; principal; 2016-08-24 10:00)
DX: I25.110 Atherosclerotic heart disease of native coronary artery with unstable angina pectoris (principal); I10 Essential (primary) hypertension; E78.5 Hyperlipidemia, unspecified; F06.4 Anxiety disorder due to known physiological condition; Z87.891 Personal history of nicotine dependence; Z23 Encounter for immunization
CPT/HCPCS: 71010; 71275; 78452; 80048; 80053; 80061; 81001; 82550; 82552; 84484; 85025; 85379; 85610; 85730; 86850; 86900; 86901; 86920; 87641; 90732; 93005; 93017; 93306; 93454; 93880; 93970; 93998; 94010; A9502; C1769; C1893; J1644; J1650; J2250; J2270; J2785; J3010; J7030; Q9967

== ENCOUNTER 2016-09-01 20:48 | Inpatient (IN) | payer OTHER ==
[~2016-09-01] VITALS: Ht 177.8 cm; Wt 98.0 kg
[~2016-09-01 20:48] MED LIST changes: +AMLO5 PO; -ASPI325T PO; +ASPI81TA11 PO; +LIPI40TA PO; +LISI-515 PO; -LISI10 PO; +METO25TA3 PO
[2016-09-01 20:52] VITALS: BP 156/93; PULSE 108; RESP 16; TEMP 98; O2SAT 98
[2016-09-01 21:03] VITALS: BP 169/97; PULSE 103; RESP 16; O2SAT 96
--- NOTE | 2016-09-01 21:13 | PD ---
HPI Chief Complaint: Chest Pain Time Seen by Provider: 21:13 Travel History International Travel<30 days: No Contact w/Intl Traveler<30days: No Traveled to known affect area: No History of Present Illness HPI 56-year-old male presents to the emergency department stating that Dr. Bridges , facility specialist, called him today at home and told him that he should come back to the emergency department and he would be able to place stents on Saturday morning. Patient was admitted on August 24, 2016 and left AGAINST MEDICAL ADVICE on August 27, 2016. Patient had a cardiac catheterization done after stress test. Cardiac catheterization was completed on August 24, 2016 which showed multivessel coronary artery disease with essentially triple vessel disease. It was felt that the patient should be considered for possible coronary artery bypass surgery. The patient was scheduled to have surgery when he wanted to have a second opinion. Thoracic surgeon offered to have another thoracic surgeon, Dr. Maurice, see the patient while the patient was in the hospital, but he wanted an outside opinion. Patient denies any chest pain at this time. Patient states he was not prescribed nitroglycerin when he left AGAINST MEDICAL ADVICE. He states that he had an appointment to see Dr. Bridges in his office on Saturday, but was called today to come to the emergency department. The patient reports history of hypertension. He has no symptoms at this time. He took aspirin 81 mg by mouth this morning. PFSH Past Medical History Arthritis: No Asthma: No Autoimmune Disease: No Anxiety: No Depression: No Heart Rhythm Problems: No Cancer: No Cardiac Catheterization: No Cardiovascular Problems: Yes High Cholesterol: No Chemotherapy: No Chest Pain: Yes (2 yrs ago with CP, stress test negative) Congestive Heart Failure: No COPD: No Cerebrovascular Accident: No Diabetes: No Diminished Hearing: No Endocrine: No GERD: No Genitourinary: No Hepatitis: No Hiatal Hernia: No Hypertension: Yes Immune Disorder: No Kidney Stones: No Musculoskeletal: No Neurologic: No Psychiatric: No Reproductive: No Respiratory: No Migraines: No Radiation Therapy: No Renal Failure: No Seizures: No Sickle Cell Disease: No Sleep Apnea: No Thyroid Disease: No Ulcer: No Past Surgical History Abdominal Surgery: No AICD: No Arteriovenous Shunt: No Cardiac Surgery: No Coronary Artery Bypass Graft: No Ear Surgery: No Endocrine Surgery: No Eye Surgery: No Genitourinary Surgery: No Gynecologic Surgery: No Insulin Pump: No Joint Replacement: No Oral Surgery: No Pacemaker: No Thoracic Surgery: Yes (lower back surgery 1989) Other Surgery: Yes Social History Alcohol Use: No Tobacco Use: No Substance Use: No Allergies-Medications (Allergen,Severity, Reaction): Coded Allergies: No Known Allergies (Verified , 09/01/16) Reported Meds & Prescriptions Reported Meds & Active Scripts Active Metoprolol Tartrate 25 Mg Tab 25 Mg PO Q12HR 30 Days Lipitor (Atorvastatin Calcium) 40 Mg Tab 40 Mg PO HS Aspirin EC (Aspirin) 81 Mg Tabdr 81 Mg PO DAILY Norvasc (Amlodipine Besylate) 5 Mg Tab 5 Mg PO DAILY Lisinopril 20 Mg Tab 20 Mg PO DAILY Review of Systems Except as stated in HPI: all other systems reviewed are Neg Physical Exam Narrative GENERAL: Well-nourished, well-developed male patient, ambulatory. Afebrile. SKIN: Focused skin assessment warm/dry. HEAD: Normocephalic. Atraumatic. EYES: No scleral icterus. No injection or drainage. NECK: Supple, trachea midline. No JVD or lymphadenopathy. CARDIOVASCULAR: Regular rate and rhythm without murmurs, gallops, or rubs. RESPIRATORY: Breath sounds equal bilaterally. No accessory muscle use. Lungs sounds are clear to auscultation. GASTROINTESTINAL: Abdomen soft, non-tender, nondistended. MUSCULOSKELETAL: No cyanosis, or edema. BACK: Nontender without obvious deformity. No CVA tenderness. Data Data Last Documented VS Vital Signs Date Time Temp Pulse Resp B/P Pulse Ox O2 Delivery O2 Flow Rate FiO2 09/01/16 21:03 103 16 169/97 96 Room Air 09/01/16 20:52 98.0 Orders Electrocardiogram (09/01/16 21:12) Basic Metabolic Panel (Bmp) (09/01/16 21:12) Ckmb (Isoenzyme) Profile (09/01/16 21:12) Complete Blood Count With Diff (09/01/16 21:12) Magnesium (Mg) (09/01/16 21:12) Prothrombin Time / Inr (Pt) (09/01/16 21:12) Act Partial Throm Time (Ptt) (09/01/16 21:12) Troponin I (09/01/16 21:12) Ecg Monitoring (09/01/16 21:12) Bilateral Bp Monitoring (09/01/16 21:12) Iv Access Insert/Monitor (09/01/16 21:12) Oximetry (09/01/16 21:12) Oxygen Administration (09/01/16 21:12) Sodium Chloride 0.9% Flush (Ns Flush) (09/01/16 21:15) Aspirin Chew (Aspirin Chew) (09/01/16 21:15) Heparin Infusion SIDDHARTH.Q1H (09/01/16 21:33) Heparin Inj (Heparin Inj) (09/01/16 21:45) Heparin Inj (Heparin Inj) (09/02/16 03:45) Heparin Inj (Heparin Inj) (09/02/16 03:45) Heparin-D5w Inj (Heparin-D5w Inj) (09/01/16 21:45) Cbc No Diff, Includes Plts (09/04/16 06:00) Act Partial Throm Time (Ptt) (09/02/16 04:33) Occult Blood (Hemoccult) Stool (09/01/16 21:33) Nitroglycerin 2% Oint (Nitroglycerin 2% (09/01/16 21:45) CKMB (09/01/16 21:18) CKMB% (09/01/16 21:18) Consult Cardiology (09/01/16 ) (Hub Use Only)Inp Phy Cons/Ref (09/01/16 ) Labs Laboratory Tests Test 09/01/16 21:18 White Blood Count 9.6 TH/MM3 Red Blood Count 5.57 MIL/MM3 Hemoglobin 15.3 GM/DL Hematocrit 46.9 % Mean Corpuscular Volume 84.2 FL Mean Corpuscular Hemoglobin 27.5 PG Mean Corpuscular Hemoglobin 32.7 % Concent Red Cell Distribution Width 14.0 % Platelet Count 262 TH/MM3 Mean Platelet Volume 9.1 FL Neutrophils (%) (Auto) 50.6 % Lymphocytes (%) (Auto) 39.0 % Monocytes (%) (Auto) 8.8 % Eosinophils (%) (Auto) 0.9 % Basophils (%) (Auto) 0.7 % Neutrophils # (Auto) 4.8 TH/MM3 Lymphocytes # (Auto) 3.7 TH/MM3 Monocytes # (Auto) 0.8 TH/MM3 Eosinophils # (Auto) 0.1 TH/MM3 Basophils # (Auto) 0.1 TH/MM3 CBC Comment DIFF FINAL Differential Comment Prothrombin Time 10.3 SEC Prothromb Time International 0.9 RATIO Ratio Activated Partial 25.7 SEC Thromboplast Time Sodium Level 140 MEQ/L Potassium Level 3.5 MEQ/L Chloride Level 107 MEQ/L Carbon Dioxide Level 25.0 MEQ/L Anion Gap 8 MEQ/L Blood Urea Nitrogen 14 MG/DL Creatinine 1.09 MG/DL Estimat Glomerular Filtration 85 ML/MIN Rate Random Glucose 120 MG/DL Calcium Level 9.4 MG/DL Magnesium Level 2.2 MG/DL Total Creatine Kinase 119 U/L Creatine Kinase MB 2.1 NG/ML Troponin I LESS THAN 0.02 NG/ML MDM Medical Decision Making Medical Screen Exam Complete: Yes Emergency Medical Condition: Yes Medical Record Reviewed: Yes Differential Diagnosis ACS versus multivessel coronary artery stenosis versus electrolyte abnormality Narrative Course 56-year-old male presents to the emergency department stating he was sent by Dr. Bridges. Patient left AGAINST MEDICAL ADVICE on August 28, 1999 after being scheduled for CABG. This was schedule after patient was found to have multivessel disease on cardiac catheterization. The patient states that he was called by Dr. Bridges and stated that he could have stents placed on Saturday. EKG shows sinus rhythm, heart rate 98. CBC, BMP, CK, troponin, magnesium, PTT, PTT/INR ordered and pending. Patient is given aspirin 81 mg by mouth in addition to the aspirin he took earlier today. 2114 - I spoke to Dr. Higgins who is on-call for Dr. Bridges. I stated to Dr. Higgins what the patient had told me about Dr. Bridges contacting him today and stating that he could place stents on Saturday morning. Dr. Higgins states that he does not believe this could happen as Dr. Bridges does not place stents. Dr. Higgins says that the patient needs a bypass surgery. If patient decided to stay for bypass surgery, he should be restarted on heparin drip. I called charge nurse who states that he has not heard anything from Dr. Bridges today regarding sending a patient here. 2119 - I discussed this with the patient and the who became very upset. The patient and state they want to leave AGAINST MEDICAL ADVICE as they were told they could get stents placed. I instructed them of possible consequences of leaving AGAINST MEDICAL ADVICE up to and including as facility specialist has recommended CABG for multivessel coronary artery stenosis. especially became very upset and stated that they need to leave AGAINST MEDICAL ADVICE as anyone could tonight. 2124 - ER nurse, Manpreet, went to speak to the patient who now agrees to stay and see the facility specialist in the morning and discuss bypass surgery at that time. 2129 - I went back and spoke with the patient again who does state that he will stay and talk to cardiology tomorrow morning regarding possible bypass surgery. Heparin drip is ordered. Nitro paste 1 inch is ordered. 2154 - patient's states that Dr. Bridges and Dr. Isaac are aware of what is going on. Since I am unable to contact Dr. Bridges, I will attempt to contact Dr. Isaac. 2199 - I spoke with Dr. Isaac who states that Dr. Bridges did call him today. He states that he like the patient admitted and he will talk to the patient in the morning regarding stenting versus CABG. He would like the patient started on heparin drip, but patient does need Nitropaste. This order was discontinued. He is to get nitro SL as needed, ASA, and his antihypertensives. CBC shows no acute abnormality. BMP shows glucose of 120, no acute abnormality. CK is 119. Troponin is less than 0.02. Magnesium is 2.2. Coags are unremarkable. [facility] is paged for admission. Dr. Novak accepted admission. Diagnosis Primary Impression: Multi-vessel coronary artery stenosis Additional Impression: CAD (coronary artery disease) Qualified Code: I25.10 - Coronary artery disease involving [place] heart, angina presence unspecified, unspecified vessel or lesion type Admitting Information Admitting Physician Requests: Admit Shaila Ball Sep 01, 2016 21:13
[2016-09-01] MEDS ORDERED: ASPIRIN 81 MG CHEW TAB CHEW ONE (21:15)
[2016-09-01] MEDS ORDERED: NITROGLYCERIN 2% OINT 1 GM PACKET TOPICAL ONE (21:45)
[2016-09-01] MEDS: HEPARIN-D5W INJ 250 ML IV SCH (21:45)
[2016-09-01] MEDS ORDERED: HEPARIN SODIUM - IV 10,000 UNITS/10 ML VIAL IV ONE (21:45)
[2016-09-01 21:46] LABS: AUTOMATED NEUTROPHIL # 4.8 TH/MM3 (1.8-7.7); BASOPHIL # 0.1 TH/MM3 (0-0.2); BASOPHIL % 0.7 % (0.0-2.0); EOSINOPHIL # 0.1 TH/MM3 (0-0.4); EOSINOPHIL % 0.9 % (0.0-4.0); HEMATOCRIT 46.9 % (39.0-51.0); HEMO FLAGS DIFF FINAL; LYMPHOCYTE # 3.7 TH/MM3 (1.0-4.8); MEAN CELL VOLUME 84.2 FL (80.0-100.0); MEAN CORPUSCULAR HEMOGLOBIN 27.5 PG (27.0-34.0); MEAN CORPUSCULAR HGB CONC 32.7 % (32.0-36.0); MONO % 8.8 % (0.0-8.0); NEUT % 50.6 % (16.0-70.0); PLATELET COUNT 262 TH/MM3 (150-450); RED BLOOD COUNT 5.57 MIL/MM3 (4.50-5.90); WHITE BLOOD COUNT 9.6 TH/MM3 (4.0-11.0)
[2016-09-01 21:49] LABS: APTT (PATIENT) 25.7 SEC (24.3-30.1); INTERNATIONAL NORMALIZED RATIO 0.9 RATIO; PROTHROMBIN TIME - PATIENT 10.3 SEC (9.8-11.6)
[2016-09-01 22:04] LABS: CREATINE KINASE 119 U/L (39-308)
[2016-09-01 22:16] LABS: ANION GAP 8 MEQ/L (5-15); BLOOD UREA NITROGEN 14 MG/DL (7-18); CHLORIDE 107 MEQ/L (98-107); CKMB 2.1 NG/ML (0.5-3.6); GLOMERULAR FILTRATION RATE 85 ML/MIN (>89); MAGNESIUM 2.2 MG/DL (1.5-2.5); POTASSIUM 3.5 MEQ/L (3.5-5.1); SODIUM (NA) 140 MEQ/L (136-145)
[2016-09-01] MEDS ORDERED: MORPHINE SULFATE 8 MG/ML INJ IV PUSH PRN ×2 (22:30)
[2016-09-01] MEDS ORDERED: SENNOSIDES 8.6 MG TAB PO PRN (22:30)
[2016-09-01] MEDS ORDERED: ONDANSETRON HCL 4 MG/2 ML VIAL IVP PRN (22:30)
[2016-09-01] MEDS ORDERED: ACETAMINOPHEN 325 MG TAB PO PRN (22:30)
[2016-09-01] MEDS ORDERED: MAGNESIUM HYDROXIDE SUSP 30 ML CUP PO PRN (22:30)
[2016-09-01] MEDS ORDERED: NALOXONE HCL 0.4 MG/ML AMP IV PRN (22:30)
[2016-09-01] MEDS ORDERED: LACTULOSE SYRUP 20 GM/30 ML CUP PO PRN (22:30)
[2016-09-01] MEDS ORDERED: BISACODYL 10 MG SUPP RECTAL PRN (22:30)
--- NOTE | 2016-09-01 23:06 | HHI.HP ---
[facility] Primary [facility] Physician No Primary Care Physician Admission Diagnosis multi-vessel coronary artery stenosis Diagnoses: (1) Multi-vessel coronary artery stenosis (2) Chest pain (3) Hypertension (4) Anxiety disorder due to medical condition Chief Complaint: Referred to ER by cardiology Travel History International Travel<30 Days: No Contact w/Intl Traveler <30 Da: No Traveled to Known Affected Are: No History of Present Illness The patient is a 56-year-old male with known multivessel coronary artery disease who was referred to the emergency department by his artist agent, Dr. Bridges. The patient was hospitalized one week ago and cardiac catheterization showed significant multivessel coronary artery disease. Cardiothoracic surgery was consulted and recommended cabbage. This was scheduled for 08/27/16. The patient changed his mind and decided that he did not want to proceed with surgery. He left AGAINST MEDICAL ADVICE at that time. His artist agent contacted him today and recommended that he return to the hospital. The ER nurse practitioner spoke with Dr. Higgins and Dr. Isaac, who are covering for Dr. Bridges. Dr. Isaac will see the patient tomorrow to discuss repeat catheter with stent placement versus cabbage. The patient is still having chest tightness intermittently. Denies dyspnea. Review of Systems Constitutional: DENIES: Fever, Chills, Night Sweats Eyes: DENIES: Blurred vision, Vision loss Ears, nose, mouth, throat: DENIES: Hearing loss Respiratory: DENIES: Cough, Wheezing, Sputum production, Shortness of breath Cardiovascular: COMPLAINS OF: Chest pain, DENIES: Palpitations, Dyspnea on Exertion, Lower Extremity Edema Gastrointestinal: DENIES: Abdominal pain, Constipation, Diarrhea, Nausea, Vomiting Genitourinary: DENIES: Urinary frequency, Urinary incontinence, Urgency, Hematuria, Dysuria, Nocturia Musculoskeletal: DENIES: Joint pain, Muscle aches Integumentary: DENIES: Pruritus, Rash Hematologic/lymphatic: DENIES: Bruising Neurologic: DENIES: Headache Past Family Social History Past Medical History Coronary artery disease Anxiety secondary to medical condition Hypertension Past Surgical History Low back surgery 1989 Reported Medications Metoprolol Tartrate 25 Mg Tab 25 Mg PO Q12HR 30 Days Lipitor (Atorvastatin Calcium) 40 Mg Tab 40 Mg PO HS Aspirin EC (Aspirin) 81 Mg Tabdr 81 Mg PO DAILY Norvasc (Amlodipine Besylate) 5 Mg Tab 5 Mg PO DAILY Lisinopril 20 Mg Tab 20 Mg PO DAILY Allergies: Coded Allergies: No Known Allergies (Verified , 09/01/16) Family History Mother had congestive heart failure. Social History Quit smoking 4 years ago. Denies alcohol or illicit drug use. Physical Exam Vital Signs Vital Signs Date Time Temp Pulse Resp B/P Pulse Ox O2 Delivery O2 Flow Rate FiO2 09/01/16 21:03 103 16 169/97 96 Room Air 09/01/16 21:01 96 17 96 Room Air 09/01/16 20:52 98.0 108 16 156/93 98 Room Air Physical Exam GENERAL: Well-nourished, well-developed male in no acute distress. HEENT: Normocephalic, atraumatic. Pupils equal, round and reactive. Extraocular movements intact. No scleral icterus. No injection or drainage. Oropharynx is clear. Mucous membranes are moist. CARDIOVASCULAR: Regular rate and rhythm without murmurs, gallops, or rubs. RESPIRATORY: Clear to auscultation. No wheezes, rales, or rhonchi. Breathing is non-labored. GASTROINTESTINAL: Abdomen soft, non-tender, nondistended. EXTREMITIES: No lower extremity edema. No calf tenderness. PSYCH: Alert and oriented x 3. Laboratory Laboratory Tests Test 09/01/16 21:18 White Blood Count 9.6 Red Blood Count 5.57 Hemoglobin 15.3 Hematocrit 46.9 Mean Corpuscular Volume 84.2 Mean Corpuscular Hemoglobin 27.5 Mean Corpuscular Hemoglobin 32.7 Concent Red Cell Distribution Width 14.0 Platelet Count 262 Mean Platelet Volume 9.1 Neutrophils (%) (Auto) 50.6 Lymphocytes (%) (Auto) 39.0 Monocytes (%) (Auto) 8.8 Eosinophils (%) (Auto) 0.9 Basophils (%) (Auto) 0.7 Neutrophils # (Auto) 4.8 Lymphocytes # (Auto) 3.7 Monocytes # (Auto) 0.8 Eosinophils # (Auto) 0.1 Basophils # (Auto) 0.1 CBC Comment DIFF FINAL Differential Comment Prothrombin Time 10.3 Prothromb Time International 0.9 Ratio Activated Partial 25.7 Thromboplast Time Sodium Level 140 Potassium Level 3.5 Chloride Level 107 Carbon Dioxide Level 25.0 Anion Gap 8 Blood Urea Nitrogen 14 Creatinine 1.09 Estimat Glomerular Filtration 85 Rate Random Glucose 120 Calcium Level 9.4 Magnesium Level 2.2 Total Creatine Kinase 119 Creatine Kinase MB 2.1 Troponin I LESS THAN 0.02 Result Diagram: 09/01/16211709/01/162117 Assessment and Plan Assessment and Plan 1. Multivessel coronary artery disease: Patient was advised to have CABG, but decided that he did not want to have surgery. Cardiology will discuss proceeding with CABG versus cardiac catheterization and stent placement. Still having some chest pain. Continue Nitropaste, heparin drip. Continue aspirin, statin, blood pressure control. 2. Hypertension: Continue lisinopril, metoprolol. 3. DVT prophylaxis: Heparin drip. Man Novak MD Sep 01, 2016 23:06
[2016-09-02] VITALS (27 sets, daily range): BP systolic 131–163; BP diastolic 79–98; PULSE 68–98; RESP 16–18; TEMP 97.4–98.2; O2SAT 93–96
[2016-09-02] MEDS ORDERED: HEPARIN SODIUM - IV 10,000 UNITS/10 ML VIAL IV PRN ×2 (03:45)
[2016-09-02 04:33] LABS: APTT (PATIENT) 58.3 SEC (24.3-30.1)
[2016-09-02] MEDS: NITROGLYCERIN 2% OINT 1 GM PACKET TOPICAL SCH ×3 (05:48→21:01)
--- NOTE | 2016-09-02 07:52 | HHI.PR ---
Subjective Remarks No acute events overnight. Afebrile, vital signs stable. Patient doing well this morning. Denies chest pain/shortness of breath. No leg swelling. Objective Vitals Vital Signs Date Time Temp Pulse Resp B/P Pulse Ox O2 Delivery O2 Flow Rate FiO2 09/02/16 06:00 74 09/02/16 05:00 74 09/02/16 04:00 72 09/02/16 04:00 79 18 154/88 95 09/02/16 03:00 68 09/02/16 02:00 74 09/02/16 01:00 74 09/02/16 00:00 97.9 84 18 155/97 93 09/02/16 00:00 78 09/01/16 21:03 103 16 169/97 96 Room Air 09/01/16 21:01 96 17 96 Room Air 09/01/16 20:52 98.0 108 16 156/93 98 Room Air I/O 09/01/16 09/01/16 09/01/16 09/02/16 09/02/16 09/02/16 07:00 15:00 23:00 07:00 15:00 23:00 Intake Total 120 ml Balance 120 ml Intake Oral 120 ml # Voids 1 # Bowel Movements 1 Result Diagram: 09/01/16211709/01/162117 Objective Remarks GENERAL: Well-nourished, well-developed male in no acute distress. HEENT: Normocephalic, atraumatic. Pupils equal, round and reactive. Extraocular movements intact. No scleral icterus. No injection or drainage. Oropharynx is clear. Mucous membranes are moist. CARDIOVASCULAR: Regular rate and rhythm without murmurs, gallops, or rubs. RESPIRATORY: Clear to auscultation. No wheezes, rales, or rhonchi. Breathing is non-labored. GASTROINTESTINAL: Abdomen soft, non-tender, nondistended. EXTREMITIES: No lower extremity edema. No calf tenderness. PSYCH: Alert and oriented x 3. A/P Problem List: (1) Multi-vessel coronary artery stenosis ICD Code: I25.10 Status: Acute (2) Chest pain ICD Code: R07.9 Status: Acute (3) Hypertension ICD Code: I10 Status: Chronic (4) Anxiety disorder due to medical condition ICD Code: F06.4 Status: Acute Assessment and Plan 1. Multivessel coronary artery disease: Patient was advised to have CABG, but decided that he did not want to have surgery. Cardiology will discuss proceeding with CABG versus cardiac catheterization and stent placement. Heparin drip. Continue aspirin, statin, blood pressure control. Had discussion with the patient this morning and he states he does not wish to have the surgery. He states he was informed that he could have stents and would like to proceed in this manner. I explained at length that cardiology would be coming by to discuss his options with him. 2. Hypertension: Continue lisinopril, metoprolol. 3. DVT prophylaxis: Heparin drip. Zena Sheppard MD R3 Sep 02, 2016 07:52
[2016-09-02] MEDS: amLODIPine BESYLATE 5 MG TAB PO SCH (08:59)
[2016-09-02] MEDS: METOPROLOL TARTRATE 25 MG TAB PO SCH ×2 (08:59→21:00)
[2016-09-02] MEDS: LISINOPRIL 20 MG TAB PO SCH (08:59)
[2016-09-02] MEDS ORDERED: ASPIRIN EC 81 MG TABEC PO SCH (09:00)
[2016-09-02] MEDS ORDERED: ASPIRIN EC 325 MG TABEC PO SCH (09:00)
[2016-09-02] MEDS: ACETAMINOPHEN 325 MG TAB PO PRN (10:03)
[2016-09-02 10:53] LABS: APTT (PATIENT) 51.8 SEC (24.3-30.1)
--- NOTE | 2016-09-02 13:42 | EKG ---
Date Performed: 09/01/2016 Time Performed: 21:09:50 PTAGE: 56 years EKG: Sinus rhythm MINIMAL VOLTAGE CRITERIA FOR LVH, CONSIDER NORMAL VARIANT INFERIOR MYOCARDIAL INFARCTION ABNORMAL EC G PREVIOUS TRACING : 08/23/2016 03.40 Compared to prior tracing no significant change DOCTOR: Harlan Isaac Interpretating Date/Time 09/02/2016 13:40:45
[2016-09-02] MEDS: HEPARIN-D5W INJ 250 ML IV SCH (13:43)
[2016-09-02] MEDS ORDERED: TICAGRELOR 90 MG TAB PO ONE (14:45)
--- NOTE | 2016-09-02 15:59 | MB ---
cc: BETINA AMBRIZ DO DATE OF CONSULTATION: 09/02/2016. REASON FOR CONSULTATION: Chest pain with unstable angina with known coronary artery disease. HISTORY OF PRESENT ILLNESS: Mauri Damon is a pleasant 56-year-old male who presented to [facility] on September 01, 2016 due to chest pain. The patient was originally admitted August 22, 2016 and underwent a stress test which showed ischemia in the lateral wall. Because of this, he was recommended cardiac catheterization. During cardiac catheterization, he was found to have multivessel disease and recommended coronary artery bypass grafting versus stenting. At that time, he wanted a second opinion and this was offered by Dr. Kennedy partner, Dr. Maurice, but he wanted to leave AMA and get another opinion. He was supposed to follow up with my partner, Dr. Bridges, on September 04, [address] Bridges over the phone, he states that he has been having chest pain. Dr. Bridges recommended that he come back into the emergency room and reconsider a coronary artery bypass grafting versus intervention. On seeing him today, he currently is on a heparin drip with nitro paste and denying chest pain at this time. PAST MEDICAL HISTORY: 1. Hypertension. 2. Coronary artery disease. PAST SURGICAL HISTORY: 1. Cardiac catheterization (August 24, 2016): left main short with no significant disease. LAD has a mid lesion of 70% which is focal in nature. There are two diagonals with the first diagonal being small with 50% to 60% disease and the second diagonal having no significant disease, the left circumflex at 20% disease in the proximal portion, the first obtuse marginal has an 80% lesion. The first branch of the obtuse marginal has a 90% lesion but is a small vessel overall. The RCA is a dominant vessel in nature with no significant disease. It gives off a PDA which has an 80% lesion. ALLERGIES: NO KNOWN DRUG ALLERGIES. MEDICATIONS: 1. Aspirin 81 milligrams daily 2. Lipitor 40 milligrams every night 3. Norvasc 5 milligrams daily 4. Metoprolol tartrate 25 milligrams every 12 hours. 5. Lisinopril 20 milligrams daily. FAMILY HISTORY: Mother had a history of congestive heart failure. Brother had a history of hyperlipidemia. Denies premature coronary artery disease or sudden cardiac within the family. SOCIAL HISTORY: The patient previously smoked but quit 3 years ago. He used to smoke a pack over a few days. Denies current tobacco or alcohol or drug abuse. REVIEW OF SYSTEMS Fourteen systems were reviewed including osteopathic pertinent positives and negatives above, otherwise negative. PHYSICAL EXAMINATION: VITAL SIGNS: Temperature 98.2, heart rate 75, blood pressure 150/98, respirations 16, pulse ox 96% on room air. GENERAL: In general, the patient appears well in no acute distress, alert, awake and oriented x3. HEAD, EYES, EARS, NOSE, THROAT: Extraocular muscles intact. Mucous membranes moist. NECK: Supple. No JVD at 45 degrees. No carotid bruits heard bilaterally. Carotid upstroke is brisk in nature. HEART: Regular rate and rhythm. Positive first and second heart sounds with no murmurs, gallops or rubs. PMI is nondisplaced. LUNGS: Clear to auscultation bilaterally. No wheezes, rales or rhonchi. ABDOMEN: Soft, nontender, nondistended. No organomegaly noted. EXTREMITIES: No clubbing, cyanosis or edema. Femoral and distal pulses are intact bilaterally. NEUROLOGIC: No focal deficits. SKIN: Warm, dry and intact. OSTEOPATHIC: Osteopathically, no kyphoscoliosis, lordosis or paraspinal tender points. LAB WORK: Hemoglobin 15.3, hematocrit 46.9, platelets 262,000. Potassium 3.5, BUN 14, creatinine 1.09. EKGS: Electrocardiogram (September 01, 2016 at 2109): Normal sinus rhythm, minimal voltage criteria for LVH, possible age-indeterminate inferior myocardial infarction. Echocardiogram (August 24, 2016): Ejection fraction 50-55%, mild mitral regurgitation, mild aortic valve sclerosis. IMPRESSION: 1. Chest pain consistent with unstable angina on multiple antianginal medications with known multivessel coronary artery disease as above. 2. History of hypertension 3. Ejection fraction of 50-55% by echocardiogram (August 24, 2016). RECOMMENDATIONS: 1. Mr. Damon presented back with chest pain after recommendations by Dr. Bridges as a second [place] for a possible secondary opinion. 2. My recommendation is coronary artery bypass grafting which he does not want to have and does not want to see a cardiothoracic surgeon again but is opting for multivessel percutaneous coronary intervention. 3. I described risks, benefits and alternatives to him and his including but not limited to bleeding, rupture of an artery, stroke, [place], need for target vessel revascularization. He consented to the procedure. 4. He will be n.p.o. after midnight with a plan for intervention on his LAD and circumflex from a radial standpoint tomorrow. We will then plan for possible intervention of his PDA from a groin standpoint on Saturday. He understands that he will be in the hospital until at least . 5. He will continue on a heparin drip. He has been given nitro paste and nitro sublingual if chest pain arises. Thank you for allowing me to see Mauri Marisol. If there are any questions, please do not hesitate to call. Betina Ambriz DO VGP/JCC /2:30 PM /3:52 PM
[2016-09-02] MEDS: ALPRAZolam 0.25 MG TAB PO PRN (21:00)
[2016-09-02] MEDS: ATORVASTATIN 40 MG TAB PO SCH (21:00)
[2016-09-02] MEDS: TICAGRELOR 90 MG TAB PO SCH (21:01)
[2016-09-03] VITALS (23 sets, daily range): BP systolic 136–155; BP diastolic 84–98; PULSE 65–106; RESP 16–20; TEMP 97.6–98.2; O2SAT 95–100
[2016-09-03] MEDS: NITROGLYCERIN 2% OINT 1 GM PACKET TOPICAL SCH ×3 (05:39→21:30)
[2016-09-03 06:56] LABS: APTT (PATIENT) 51.3 SEC (24.3-30.1)
[2016-09-03 06:57] LABS: AUTOMATED NEUTROPHIL # 5.3 TH/MM3 (1.8-7.7); BASOPHIL # 0.1 TH/MM3 (0-0.2); BASOPHIL % 0.7 % (0.0-2.0); EOSINOPHIL # 0.1 TH/MM3 (0-0.4); EOSINOPHIL % 1.2 % (0.0-4.0); HEMATOCRIT 45.3 % (39.0-51.0); HEMO FLAGS DIFF FINAL; LYMPH % 36.3 % (9.0-44.0); LYMPHOCYTE # 3.8 TH/MM3 (1.0-4.8); MEAN CELL VOLUME 84.5 FL (80.0-100.0); MEAN CORPUSCULAR HEMOGLOBIN 27.6 PG (27.0-34.0); MEAN CORPUSCULAR HGB CONC 32.6 % (32.0-36.0); NEUT % 50.8 % (16.0-70.0); PLATELET COUNT 258 TH/MM3 (150-450); RED BLOOD COUNT 5.36 MIL/MM3 (4.50-5.90); WHITE BLOOD COUNT 10.4 TH/MM3 (4.0-11.0)
[2016-09-03 07:24] LABS: BICARBONATE 25.2 MEQ/L (21.0-32.0); POTASSIUM 3.5 MEQ/L (3.5-5.1)
[2016-09-03] MEDS: ASPIRIN 81 MG CHEW TAB CHEW SCH (08:26)
[2016-09-03] MEDS: ALPRAZolam 0.25 MG TAB PO PRN (08:26)
[2016-09-03] MEDS: amLODIPine BESYLATE 5 MG TAB PO SCH (08:27)
[2016-09-03] MEDS: METOPROLOL TARTRATE 25 MG TAB PO SCH ×2 (08:27→21:30)
[2016-09-03] MEDS: TICAGRELOR 90 MG TAB PO SCH ×2 (08:27→21:30)
[2016-09-03] MEDS: LISINOPRIL 20 MG TAB PO SCH (08:27)
--- NOTE | 2016-09-03 09:33 | HHI.PR ---
Subjective Remarks Follow-up for unstable angina Patient denies any chest pain. Denied any shortness of breathing, palpitation, lightheadedness/ dizziness. Patient concerns. Patient's is at the bedside. Objective Vitals Vital Signs Date Time Temp Pulse Resp B/P Pulse Ox O2 Delivery O2 Flow Rate FiO2 09/03/16 06:00 70 09/03/16 05:00 72 09/03/16 04:00 65 09/03/16 04:00 98.0 78 16 155/85 98 09/03/16 03:00 70 09/03/16 02:00 74 09/03/16 01:00 77 09/03/16 00:00 97.9 75 16 150/91 96 09/03/16 00:00 72 09/02/16 23:00 84 09/02/16 22:00 78 09/02/16 21:00 86 09/02/16 20:00 98.0 93 16 147/96 96 09/02/16 20:00 93 09/02/16 19:00 78 09/02/16 18:12 98 09/02/16 17:00 98 09/02/16 16:00 96 09/02/16 15:25 97.4 96 17 131/79 96 09/02/16 15:00 93 09/02/16 14:00 77 09/02/16 13:06 78 09/02/16 12:10 78 09/02/16 11:35 98.2 75 16 152/98 96 09/02/16 11:00 76 09/02/16 10:00 70 I/O 09/02/16 09/02/16 09/02/16 09/03/16 09/03/16 09/03/16 07:00 15:00 23:00 07:00 15:00 23:00 Intake Total 120 ml 1070 ml 480 ml Output Total 900 ml 1050 ml Balance 120 ml 170 ml -570 ml Intake Oral 120 ml 920 ml 480 ml IV Total 150 ml Output Urine Total 900 ml 1050 ml # Voids 1 # Bowel Movements 1 0 Result Diagram: 09/03/1652709/03/16527 Objective Remarks GENERAL: in NAD CARDIOVASCULAR: Regular rate and rhythm without murmurs, gallops, or rubs. RESPIRATORY: Breath sounds equal bilaterally. No accessory muscle use. GASTROINTESTINAL: Abdomen soft, non-tender, nondistended. MUSCULOSKELETAL: No cyanosis, or edema. BACK: Nontender without obvious deformity. No CVA tenderness. Medications and IVs Current Medications Sodium Chloride (NS Flush) 2 ml UNSCH PRN IVF FLUSH AFTER USING IV ACCESS; Start 09/01/16 at 21:15 Aspirin (Aspirin Chew) 81 mg ONCE ONCE CHEW Last administered on 09/01/16 21: 15; Start 09/01/16 at 21:15; Stop 09/01/16 at 21:16; Status DC Heparin Sodium (Porcine) (Heparin Inj) 4,000 units ONCE ONCE IV Last administered on 09/01/16 21:45; Start 09/01/16 at 21:45; Stop 09/01/16 at 21:46; Status DC Heparin Sodium (Porcine) (Heparin Inj) 5,000 units UNSCH PRN IV APTT LESS THAN 25; Start 09/02/16 at 03:45 Heparin Sodium (Porcine) 2500 units 2,500 units UNSCH PRN IV APTT 25 TO 39; Start 09/02/16 at 03:45 Heparin Sodium/ Dextrose (Heparin-D5W Inj) 250 ml @ 0 mls/hr TITRATE IV Last administered on 09/02/16 13:43; Start 09/01/16 at 21:45 Nitroglycerin (Nitroglycerin 2% Oint) 1 inch ONCE ONCE TOPICAL Last administered on 09/01/16 21:45; Start 09/01/16 at 21:45; Stop 09/01/16 at 22:01; Status DC Acetaminophen (Tylenol) 650 mg Q4H PRN PO TEMP > 100.4; Start 09/01/16 at 22:30 Ondansetron HCl (Zofran Inj) 4 mg Q6H PRN IVP NAUSEA OR VOMITING; Start at 22:30 Acetaminophen (Tylenol) 650 mg Q6H PRN PO PAIN SCALE 1 TO 2 Last administered on 09/02/16 10:03; Start 09/01/16 at 22:30 Morphine Sulfate (Morphine Inj) 2 mg Q3H PRN IV PUSH Pain 3-5; if unable to take PO; Start 09/01/16 at 22:30 Morphine Sulfate (Morphine Inj) 4 mg Q3H PRN IV PUSH Pain 6-10;if unable to take PO; Start 09/01/16 at 22:30 Naloxone HCl (Narcan Inj) 0.4 mg UNSCH PRN IV SEE LABEL COMMENTS; Start at 22:30 Magnesium Hydroxide (Milk Of Magnesia Liq) 30 ml Q12H PRN PO MILD - MODERATE CONSTIPATION; Start 09/01/16 at 22:30 Sennosides (Senokot) 17.2 mg Q12H PRN PO MODERATE - SEVERE CONSTIPATION; Start 09/01/16 at 22:30 Bisacodyl (Dulcolax Supp) 10 mg DAILY PRN RECTAL SEVERE CONSITIPATION; Start at 22:30 Lactulose (Lactulose Liq) 30 ml DAILY PRN PO SEVERE CONSITIPATION; Start at 22:30 Amlodipine Besylate (Norvasc) 5 mg DAILY PO Last administered on 09/03/16 08: 27; Start 09/02/16 at 09:00 Aspirin (Ecotrin Ec) 81 mg DAILY PO ; Start 09/02/16 at 09:00; Stop 09/02/16 at 09 :00; Status DC Atorvastatin Calcium (Lipitor) 40 mg HS PO Last administered on 09/02/16 21:00 ; Start 09/02/16 at 21:00 Lisinopril (Prinivil) 20 mg DAILY PO Last administered on 09/03/16 08:27; Start 09/02/16 at 09:00 Metoprolol Tartrate (Lopressor) 25 mg Q12HR PO Last administered on 09/03/16 08:27; Start 09/02/16 at 09:00 Nitroglycerin (Nitroglycerin 2% Oint) 0.5 inch Q8HR TOPICAL Last administered on 09/02/16 13:42; Start 09/02/16 at 06:00 Aspirin (Ecotrin Ec) 325 mg DAILY PO Last administered on 09/02/16 08:59; Start 09/02/16 at 09:00; Stop 09/02/16 at 14:39; Status DC Ticagrelor (Brilinta) 180 mg ONCE ONCE PO Last administered on 09/02/16 15:17 ; Start 09/02/16 at 14:45; Stop 09/02/16 at 14:46; Status DC Ticagrelor (Brilinta) 90 mg BID PO Last administered on 09/03/16 08:27; Start 09/02/16 at 21:00 Aspirin (Aspirin Chew) 81 mg DAILY CHEW Last administered on 09/03/16 08:26; Start 09/03/16 at 09:00 Alprazolam (Xanax) 0.25 mg Q8H PRN PO anxiety Last administered on 09/03/16 08 :26; Start 09/02/16 at 20:00 A/P Problem List: (1) Multi-vessel coronary artery stenosis ICD Code: I25.10 Status: Acute (2) Chest pain ICD Code: R07.9 Status: Acute (3) Hypertension ICD Code: I10 Status: Chronic (4) Anxiety disorder due to medical condition ICD Code: F06.4 Status: Acute Assessment and Plan Unstable angina -Patient declined CABG. -Morning Babysitter consulted and patient will have intervention on his LAD and circumflex from a radial standpoint today. Tomorrow possible intervention of his PDA from a groin standpoint. -Continue heparin drip. Coronary disease/hypertension -Continue home medication. DVT prophylaxis: Heparin drip. Dee Gordon MD Sep 03, 2016 09:33 Dee Gordon MD Sep 03, 2016 09:33
[2016-09-03] MEDS ORDERED: HEPARIN-NS/PF INJ 500 ML ONE ×2 (13:26→14:31)
[2016-09-03] MEDS ORDERED: NITROGLYCERIN INJ 5 ML ONE (13:27)
[2016-09-03] MEDS ORDERED: MIDAZOLAM HCL 2 MG/2 ML VIAL ONE (13:27)
[2016-09-03] MEDS ORDERED: HEPARIN SODIUM - IV 10,000 UNITS/10 ML VIAL ONE (13:27)
[2016-09-03] MEDS ORDERED: VERAPAMIL HCL 5 MG/2 ML VIAL ONE (13:27)
[2016-09-03] MEDS ORDERED: IOHEXOL 350 MG/ML 50 ML BTL (for Cath Lab) OTHER ONE (13:37)
[2016-09-03] MEDS ORDERED: IOHEXOL 350 MG/ML 100 ML BTL (for Cath Lab) OTHER ONE (13:37)
[2016-09-03] MEDS ORDERED: oxyCODONE/ACETAMINOPHEN 5 MG/325 MG TAB PO PRN (15:30)
[2016-09-03] MEDS ORDERED: MORPHINE SULFATE 4 MG/ML INJ IV PUSH PRN (15:30)
[2016-09-03] MEDS ORDERED: SODIUM CHLOR 0.9% 1000 ML INJ 1,000 ML IV SCH (15:30)
[2016-09-03] MEDS ORDERED: oxyCODONE/ACETAMINOPHEN 10 MG/325 MG TAB PO PRN (15:30)
[2016-09-03] MEDS ORDERED: ACETAMINOPHEN 325 MG TAB PO PRN (15:30)
--- NOTE | 2016-09-03 15:32 | CATHPROC ---
Sprinkle HIS Report Study Information Study Number Admission Scheduled Start Study Start [id number] Sep 01 2016 10:29PM 09/02/2016 Sep 03 2016 1:38PM Study Type [place] [facility] Stent Cardiac Catheterization Admit Source Facility Department Other [facility] - Experimental Technician Physician and Clinical Staff Initial Harlan Boss RN, Guerita Veliz RN Other cathlab, cathlab Recorder Luis Daniel Mcclendon RCIS(BS) Michelle Fink RT(R) (BS) Procedures Performed Procedure Location (Site) Vessel Name Coronary Angiograms LCA Left Coronary Drug Eluting Inflatio LAD Mid Left Coronary Drug Eluting Inflatio OM1 Prox CIRC PTCA LAD Mid Left Coronary PTCA OM1 Prox CIRC Wire insertion Radial (right) Radial Art. 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 Description Size Mfg Part Number Used/Scraped WIRE, BALANCE MIDDLEWEIGHT [id number] 14:07 [employer] 190CM Used 190CM *[id number] TRANSDUCER, TRUWAVE [id number] 13:56 FUNES GREGORY * Used W/STOCKCOCK *[id number] 13:56 Microstim PACK, CCL CUSTOM * Used *[id number] 13:56 Microstim SUPPORT, ARTERIAL ADULT 15296 Used [id number] 14:56 MEDTRONIC BALLOON, 2.0 X 10MM EUPHORA 10MM Used *[id number] 14:32 MEDTRONIC BALLOON, 2.5 X 12MM EUPHORA 12MM Used *[id number] BALLOON, 2.75 X 12MM NC [id number] 14:43 MEDTRONIC 12MM Used EUPHORA *[id number] STENT, 2.5 14 RESOLUTE [id number] 15:03 MEDTRONIC 2.5 14 Used INTEGRITY RX *[id number] STENT, 2.75 14 RESOLUTE [id number] 14:36 MEDTRONIC 2.75 14 Used INTEGRITY RX *[id number] 14:07 MEDTRONIC/AVE EBU 3.5 Z2 GUIDE CATHETER FR 6 Used *[id number] 13:56 Quick Key 30 JANINA INDEFLATOR Used *[id number] BAND, RADIAL COMPRESSION TR [id number] 15:18 [employer] 29CM Used LARGE 29 *[id number] 13:56 Quick Key WIRE, EXCHANGE 260CM 3MMJ 260CM Used *[id number] 13:56 NAMIC MANIFOLD, 4 PORT * Used *[id number] 13:56 NYCOMED OMNIPAQUE, 350 MG, 150ML 150ML [id number] Used [id number] 13:56 [place] [employer] BL[employer]ET,WARM AIR CCL * Used *[id number] SHEATH, FR6 TRANSRADIAL 13:56 [employer] FR 6 RM*[id number] Used SLENDER 10CM SHEATH, FR6 TRANSRADIAL 13:56 [employer] FR 6 RM*[id number] Used SLENDER 10CM Equipment Model, Serial, Lot Number and Expiration Data Description Model Number Serial Number Lot Number Expiration Date STENT, 2.5 14 RESOLUTE [id number] 03-30-2018 INTEGRITY RX STENT, 2.75 14 RESOLUTE [id number] 05-31-2017 INTEGRITY RX History: Current Medications Medication Dosage/Unit Route Frequency Last Date/Time Taken ASA Beta Juvenal Statins (any) History: Allergies Allergy Reaction No Known Allergies History: Risk Factors Family History of Hypertension Dyslipidemia Previous NM Previous Heart Failure Premature CAD Yes No No No No Prior Valve Prior PCI Prior CABG Surgery No No No Cerebrovascular Peripheral Artery Chronic Lung On Dialysis Diabetes Disease Disease Disease No No No No No History: Symptoms/Diagnosis Selection Items Angina-unstable History: Stress Tests Stress or Imaging Studies Performed Yes Standard Exercise Stress Test No Stress Echo No Stress Test SPECT Stress Test SPECT Result Stress Test SPECT Ischemia Risk/Extent Yes Positive Low Stress Test CMR No Cardiac CTA Coronary Calcium Score No No History: Other Disease Selection Items HTN History: NM/CV Data Previous Cath Date 08/31/2016 History: Other Current Smoker Method Quit Packs a Day Years Used Pack Years No Cigarettes 3 Years Ago 1 20 20 Labs Hgb (g/dl) Hct (%) WBC (l/cumm) Platelets (thousands) 11.60-17.00 35.00-51.00 4.00-11.00 150.00-450.00 14.8 45.3 10.4 258 Glucose (mg/dl) BUN (mg/dl) Creatinine (mg/dl) BUN:Creatinine (1:x) 74.00-106.00 7.00-18.00 0.50-1.30 10.00-20.00 87 14 0.9 15.6 Na (meq/l) K (meq/l) 136.00-145.00 3.50-5.10 141 3.5 INR (PTT:PT) 0.90-1.10 0.9 Troponin I (ng/ml) CPK-MB (ng/ML) 0.02-0.05 0.50-3.60 0.02 Not Drawn Medication Medication Total Dose (Bolus/Oral) Medication Total Dosage/Unit 1% XYLOCAINE 3 mL FENTANYL 75 mcg HEPARIN 6000 units NTG (IC) 100 mcg RADIAL COCKTAIL 5 mL (Bolus) VERSED 1.5 mg Medications (Bolus/Oral) Medication Time Given Dosage/Unit Administered By Reason VERSED 09/03/2016 2:07:03 PM 1 mg Guerita Nuno 1 mg VERSED given in lab by Guerita Nuno RN in Left Antecubital via Peripheral IV. Ordered by Harlan Arambula. FENTANYL 09/03/2016 2:07:21 PM 50 mcg Guerita Nuno 50 mcg FENTANYL given in lab by Guerita Nuno RN in Left Antecubital via Peripheral IV. Ordered by Harlan Isaac. 1% XYLOCAINE 09/03/2016 2:07:30 PM 3 mL Harlan Isaac 3 mL 1% XYLOCAINE given in lab by Harlan Isaac in Right Radial via Subcutaneous. Ntg 200mcg Verapamil 2.5mg Heparin RADIAL COCKTAIL 09/03/2016 2:09:36 PM 5 mL (Bolus) Harlan Isaac 3000U 5 mL (Bolus) RADIAL COCKTAIL given in lab by Harlan Isaac in Right Radial via Radial. Using [Maria De Jesus ution Name]. Reason: Ntg 200mcg Verapamil 2.5mg Heparin 4000U. HEPARIN 09/03/2016 2:23:02 PM 6000 units Rosas Mao RN 6000 units HEPARIN given in lab by Rosas Mao RN in Left Antecubital via Peripheral IV. FENTANYL 09/03/2016 2:48:02 PM 25 mcg Guerita Nuno 25 mcg FENTANYL given in lab by Guerita Nuno RN in Left Antecubital via Peripheral IV. Ordered by Harlan Isaac. VERSED 09/03/2016 2:48:02 PM 0.5 mg Guerita Nuno 0.5 mg VERSED given in lab by Guerita Nuno RN in Left Antecubital via Peripheral IV. Ordered by Harlan Carlson. NTG (IC) 09/03/2016 2:54:59 PM 100 mcg Harlan Isaac 100 mcg NTG (IC) given in lab by Harlan Isaac via Intra-coronary. Medication (Drip) Medication Time Given Dosage/Unit Concentration/Unit Diluent (ml) Solutio n IV Solutions 09/03/2016 1:37:45 PM 0 mL (IV) 500 NaCl .9 Patient arrived on IV Solutions given by cathlab, cathlab in Left Antecubital via Peripheral IV. Pump /Drip Flow = 20 ml/hr using NaCl .9. Ordered by Harlan Isaac. Initial Case Assessment Cardiovascular HR Rhythm NIBP Chest Pain 81 sinus 169/96 0 Edema Present Skin color Skin None Normal Warm Dry Circulatory - Right Pulses Dorsalis Pedis Femoral Radial 2 2 2 Scale (0,1,2,3,4,d) Circulatory - Left Pulses Dorsalis Pedis Femoral Radial 2 Scale (0,1,2,3,4,d) Neurological State Oriented to time-place- Alert Moves all extremities person Respiration - General Respiration Rate SpO2 (%) (B/min) 15 98 Final Case Assessment Cardiovascular HR Rhythm NIBP Chest Pain 93 sinus 166/103 0 Edema Present Skin color Skin None Normal Warm Dry Circulatory - Right Pulses Dorsalis Pedis Femoral Radial 2 2 2 Scale (0,1,2,3,4,d) Circulatory - Left Pulses Dorsalis Pedis Femoral Radial 2 Scale (0,1,2,3,4,d) Neurological State Oriented to time-place- Alert Moves all extremities person Respiration - General Respiration Rate SpO2 (%) (B/min) 15 98 Chronological Log Time Study Chronological Log 13:37:34 Patient arrived via Bed. 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 13:37:35 Patient Name, D.O.B, / Armband Verified By R.N. 13:37:35 Consent signed by the physician and the patient and verified by the Experimental Technician staff. 13:37:36 Pre-op and post- op instructions given; patient acknowledges understanding of instructions. 13:37:37 Verbal Stimulation=2 Physical Stimulation=2 Airway=2 Respiration=2 TOTAL=8. (0=absent, 1=li mited, 2=present) 13:37:38 Presedation assessment performed by Experimental Technician RN. 13:37:39 Allens test performed on the right radial and ulnar artery. 13:37:40 Immediate Presedation assesment performed by physician. 13:37:40 Patient has been NPO for More than 6Hrs. 13:37:41 Skin Breakdown- none per patient 13:37:43 Patient Warmer Placed on the Table. 13:37:44 Lidia Prominences Protected 13:37:45 A # 20 IV was noted in the Antecubital (left). Grade = 0 Patient arrived on IV Solutions given by cathlab, cathlab in Left Antecubital via Peripheral IV . Pump/Drip Flow = 20 13:37:45 ml/hr using NaCl .9. Ordered by Harlan Isaac. 13:37:46 History and physical on the chart or being dictated. Vitals capture started with the following parameters, Patient=Adult, Interval=5 min, Initial Pr obrwrc=330 mmHg, 13:47:44 Deflation Rate=5 mmHg 13:48:13 Reference ECG taken 13:49:01 HR=84 bpm, XCGC=650/96 mmhg, SpO2=95.0 %, Resp=14 B/min, Pain=0, Raquel=10, Smith=2 13:50:02 MD arrived. Assessment: Initial Case, HR=81 BPM, Rhythm=sinus, RUAU=548/96 mmhg, Chest Pain=0, Edema=None, Color=Normal, Skin = Warm, Dry Right Pulses: Chiki Ped=2, Femoral=2, Radial=2 13:50:08 Left Pulses: Femoral=2 Neurological: State=Alert, Ox3, GIL Respiration: Resp=15 B/min, SpO2=98 % 13:53:17 Right Radial and groin(s) prepped with 2% chlorhexidine, and with a 3 min. waiting time. 13:53:25 HR=79 bpm, KGSS=477/99 mmhg, SpO2=95.0 %, Resp=16 B/min, Pain=0, Raquel=10, Smith=2 13:56:09 Immediate Presedation assesment performed by physician. 13:58:26 HR=81 bpm, FYKQ=798/100 mmhg, SpO2=96.0 %, Resp=14 B/min, Pain=0, Raquel=10, Smith=2 14:02:11 Pressure channel 1 zeroed. 14:03:23 HR=83 bpm, BUUV=822/97 mmhg, SpO2=95.0 %, Resp=16 B/min, Pain=0, Raquel=10, Smith=2 Time Out. Correct patient, correct procedure,correct physician, ,power injector not loaded with contrast with surgical 14:05:54 team present. Time Out Concurred by MD, individual staff in procedure 14:06:17 Case Start 14:06:19 Verbal Stimulation=2 Physical Stimulation=2 Airway=2 Respiration=2 TOTAL=8. (0=absent, 1=li mited, 2=present) 14:07:03 1 mg VERSED given in lab by Guerita Nuno, RN in Left Antecubital via Peripheral IV. Orde red by Harlan Isaac. 50 mcg FENTANYL given in lab by Guerita Nuno, RN in Left Antecubital via Peripheral IV. Orde red by Poncho, 14:07:21 Vincclaude. 14:07:30 3 mL 1% XYLOCAINE given in lab by Harlan Isaac in Right Radial via Subcutaneous. 14:08:26 HR=82 bpm, WSTD=958/96 mmhg, SpO2=96 %, Resp=15 B/min, Pain=0, Raquel=10, Smith=2 14:09:05 Access site was Right Radial Artery. A SHEATH, FR6 TRANSRADIAL SLENDER 10CM FR 6 was advanced into the Radial (right) using the Perc utaneous 14:09:20 technique. 5 mL (Bolus) RADIAL COCKTAIL given in lab by Harlan Isaac in Right Radial via Radial. Kendall douglass [Solution Name]. 14:09:36 Reason: Ntg 200mcg Verapamil 2.5mg Heparin 4000U. A EBU 3.5 Z2 GUIDE CATHETER FR 6 was advanced over a wire. OMNIPAQUE, 350 MG, 150ML 150ML was u sed for 14:10:59 injections. Recorded Pressure: Ao, HR=94, Condition=Condition 1 14:13:25 (Aorta) Ao 135/89/109 14:14:04 HR=96 bpm, PMZA=053/94 mmhg, SpO2=90.0 %, Resp=18 B/min, Pain=0, Raquel=10, Smith=2 14:18:24 HR=91 bpm, LUDK=018/97 mmhg, SpO2=90 %, Resp=12 B/min, Pain=0, Raquel=10, Smith=2 14:18:49 The LCA was injected and visualized at various angles. OMNIPAQUE, 350 MG, 150ML 150ML used . 14:23:02 6000 units HEPARIN given in lab by Rosas Mao RN in Left Antecubital via Peripheral IV. 14:23:27 HR=91 bpm, HIFE=259/90 mmhg, SpO2=90.0 %, Resp=14 B/min, Pain=0, Raquel=10, Smith=2 14:26:01 A WIRE, BALANCE MIDDLEWEIGHT 190CM 190CM was inserted via Radial (right). 14:28:28 HR=88 bpm, UBXV=523/90 mmhg, SpO2=90.0 %, Resp=17 B/min, Pain=0, Raquel=10, Smith=2 14:29:40 Interventional wire has crossed the lesion A BALLOON, 2.5 X 12MM EUPHORA 12MM was inserted over WIRE, BALANCE MIDDLEWEIGHT 190CM 190CM via the 14:30:12 LAD Mid. A BALLOON, 2.5 X 12MM EUPHORA 12MM over a WIRE, BALANCE MIDDLEWEIGHT 190CM 190CM in the LAD Mid was 14:32:18 inflated using a 30 JANINA INDEFLATOR at 8 janina for 25 sec. 14:33:29 HR=93 bpm, VVPS=606/100 mmhg, SpO2=93.0 %, Resp=16 B/min, Pain=0, Raquel=10, Smith=2 14:33:34 Balloon Removed. 14:34:12 Activated Clotting Time Drawn A STENT, 2.75 14 RESOLUTE INTEGRITY RX 2.75 14 was advanced through a EBU 3.5 Z2 GUIDE CATHETER FR 6 over 14:39:45 a WIRE, BALANCE MIDDLEWEIGHT 190CM 190CM. 14:39:45 HR=93 bpm, TSLY=124/100 mmhg, SpO2=96.0 %, Resp=10 B/min, Pain=0, Raquel=10, Smith=2 A STENT, 2.75 14 RESOLUTE INTEGRITY RX 2.75 14 was deployed using a 30 JANINA INDEFLATOR at 9 atmo spheres for 14:40:06 18 seconds in the LAD Mid. 14:40:35 Delivery device removed 14:40:48 ACT (Normal Range 90-180) = 347 A BALLOON, 2.75 X 12MM NC EUPHORA 12MM was inserted over WIRE, BALANCE MIDDLEWEIGHT 190CM 190CM via 14:42:45 the LAD Mid. 14:43:31 HR=97 bpm, LGKL=426/102 mmhg, SpO2=95.0 %, Resp=13 B/min, Pain=0, Raquel=10, Smith=2 A BALLOON, 2.75 X 12MM NC EUPHORA 12MM over a WIRE, BALANCE MIDDLEWEIGHT 190CM 190CM in the LAD Mid 14:44:37 was inflated using a 30 JANINA INDEFLATOR at 18 janina for 25 sec. 14:45:43 Balloon Removed. 14:47:55 Wire removed 25 mcg FENTANYL given in lab by Guerita Nuno RN in Left Antecubital via Peripheral IV. Orde red by Poncho, 14:48:02 Harlan. 14:48:02 0.5 mg VERSED given in lab by Guerita Nuno RN in Left Antecubital via Peripheral IV. Or dered by Harlan Isaac. 14:48:28 HR=89 bpm, VDRM=596/103 mmhg, SpO2=96.0 %, Resp=15 B/min, Pain=0, Raquel=10, Smith=2 14:51:34 A WIRE, BALANCE MIDDLEWEIGHT 190CM 190CM was inserted via Radial (right). 14:52:42 Interventional wire has crossed the lesion 14:54:17 HR=94 bpm, OYNX=379/94 mmhg, SpO2=91.0 %, Resp=17 B/min, Pain=0, Raquel=10, Smith=2 14:54:59 100 mcg NTG (IC) given in lab by Harlan Isaac via Intra-coronary. 14:57:20 Activated Clotting Time Drawn 14:58:31 OP=810 bpm, IWGO=311/92 mmhg, SpO2=98.0 %, Resp=11 B/min, Pain=0, Raquel=10, Smith=2 A BALLOON, 2.0 X 10MM EUPHORA 10MM was inserted over WIRE, BALANCE MIDDLEWEIGHT 190CM 190CM via the 14:59:57 OM1 Prox. A BALLOON, 2.0 X 10MM EUPHORA 10MM over a WIRE, BALANCE MIDDLEWEIGHT 190CM 190CM in the OM1 Pro x was 15:00:27 inflated using a 30 JANINA INDEFLATOR at 8 janina for 40 sec. 15:01:22 Balloon Removed. A STENT, 2.5 14 RESOLUTE INTEGRITY RX 2.5 14 was advanced through a EBU 3.5 Z2 GUIDE CATHETER F R 6 over a 15:02:44 WIRE, BALANCE MIDDLEWEIGHT 190CM 190CM. 15:03:25 HR=96 bpm, ZTDO=797/96 mmhg, SpO2=91.0 %, Resp=16 B/min, Pain=0, Raquel=10, Smith=2 15:04:35 ACT (Normal Range 90-180) = 361 A STENT, 2.5 14 RESOLUTE INTEGRITY RX 2.5 14 was deployed using a 30 JANINA INDEFLATOR at 12 atmos pheres for 15:05:53 23 seconds in the OM1 Prox. 15:06:51 Delivery device removed 15:07:35 Activated Clotting Time Drawn 15:08:31 HR=95 bpm, POKH=184/100 mmhg, SpO2=91.0 %, Resp=16 B/min, Pain=0, Raquel=10, Smith=2 A BALLOON, 2.75 X 12MM NC EUPHORA 12MM was inserted over WIRE, BALANCE MIDDLEWEIGHT 190CM 190CM via 15:09:07 the OM1 Prox. A BALLOON, 2.75 X 12MM NC EUPHORA 12MM over a WIRE, BALANCE MIDDLEWEIGHT 190CM 190CM in the OM1 Prox 15:11:19 was inflated using a 30 JANINA INDEFLATOR at 15 janina for 23 sec. 15:13:36 HR=94 bpm, QZFZ=638/103 mmhg, SpO2=94.0 %, Resp=16 B/min, Pain=0, Raquel=10, Smith=2 A BALLOON, 2.75 X 12MM NC EUPHORA 12MM over a WIRE, BALANCE MIDDLEWEIGHT 190CM 190CM in the OM1 Prox 15:13:53 was inflated using a 30 JANINA INDEFLATOR at 14 janina for 22 sec. 15:15:02 Balloon Removed. 15:16:09 The LCA was injected and visualized at various angles. OMNIPAQUE, 350 MG, 150ML 150ML used . 15:16:23 Wire removed 15:17:11 Catheter was removed Assessment: Final Case, HR=93 BPM, Rhythm=sinus, GQDN=271/103 mmhg, Chest Pain=0, Edema=None, Color=Normal, Skin = Warm, Dry Right Pulses: Chiki Ped=2, Femoral=2, Radial=2 15:17:52 Left Pulses: Femoral=2 Neurological: State=Alert, Ox3, GIL Respiration: Resp=15 B/min, SpO2=98 % 15:18:41 HR=87 bpm, RQQW=880/65 mmhg, SpO2=96.0 %, Resp=16 B/min, Pain=0, Raquel=10, Smith=2 Radial Compression Device Used. 12 mLs of air placed in BAND, RADIAL COMPRESSION TR LARGE 29 2 9CM. Affected 15:19:45 hand 99 % O2 saturation. 15:20:33 Case End 15:21:09 Catheter(s) removed without difficulty 15:21:13 Sterile dressing applied to site 15:21:14 No case complications noted. 15:21:15 Cine recording checked. 15:21:16 Bedside Report will be given. 15:21:17 Implantable Device card placed in patient's chart. 15:21:18 Contrast Scanned 15:21:19 Verbal Stimulation=2 Physical Stimulation=2 Airway=2 Respiration=2 TOTAL=8. (0=absent, 1=l imited, 2=present) 15:23:04 Vitals capture stopped. 15:25:13 [facility] - Contrast Media Used In Study Contrast Total Opened (mL) Total Used (mL) Total Wasted (mL) Omnipaque 120 120 0 End Study - Maximum Contrast Load Max Contrast Load (mL) 536.1 End Study - Radiation Exposure Fluoro Time (minutes) 18.7 End Study - Patient Disposition Complications Transferred To Interventional Outcome No Telemetry Bed successful
[2016-09-03] MEDS ORDERED: oxyCODONE/ACETAMINOPHEN 5 MG/325 MG TAB PO ONE (16:00)
--- NOTE | 2016-09-03 17:21 | PD.CARD.PN ---
Subjective Subjective Remarks Post LAD/OM intervention, doing well, no chest pain Objective Medications Current Medications Medications (Trade) Dose Ordered Sig/Juan C Route Start Time Stop Time Status Last Admin (NS Flush) 2 ml UNSCH PRN IVF 09/01/16 21:15 (Heparin Inj) 5,000 units UNSCH PRN IV 09/02/16 03:45 Heparin Sodium (Porcine) 2500 units 2,500 units UNSCH PRN IV 09/02/16 03:45 (Heparin-D5W Inj) 250 ml @ 0 mls/hr TITRATE IV 09/01/16 21:45 09/02/16 13:43 (Tylenol) 650 mg Q4H PRN PO 09/01/16 22:30 (Zofran Inj) 4 mg Q6H PRN IVP 09/01/16 22:30 (Tylenol) 650 mg Q6H PRN PO 09/01/16 22:30 09/02/16 10:03 (Morphine Inj) 2 mg Q3H PRN IV PUSH 09/01/16 22:30 (Morphine Inj) 4 mg Q3H PRN IV PUSH 09/01/16 22:30 (Narcan Inj) 0.4 mg UNSCH PRN IV 09/01/16 22:30 (Milk Of Magnesia Liq) 30 ml Q12H PRN PO 09/01/16 22:30 (Senokot) 17.2 mg Q12H PRN PO 09/01/16 22:30 (Dulcolax Supp) 10 mg DAILY PRN RECTAL 09/01/16 22:30 (Lactulose Liq) 30 ml DAILY PRN PO 09/01/16 22:30 (Norvasc) 5 mg DAILY PO 09/02/16 09:00 09/03/16 08:27 (Lipitor) 40 mg HS PO 09/02/16 21:00 09/02/16 21:00 (Prinivil) 20 mg DAILY PO 09/02/16 09:00 09/03/16 08:27 (Lopressor) 25 mg Q12HR PO 09/02/16 09:00 09/03/16 08:27 (Nitroglycerin 2% Oint) 0.5 inch Q8HR TOPICAL 09/02/16 06:00 09/02/16 13:42 (Brilinta) 90 mg BID PO 09/02/16 21:00 09/03/16 08:27 (Aspirin Chew) 81 mg DAILY CHEW 09/03/16 09:00 09/03/16 08:26 Alprazolam 0.25 mg 0.25 mg Q8H PRN PO 09/02/16 20:00 09/03/16 08:26 (NS 1000 ml Inj) 1,000 ml @ 60 mls/hr [id number] IV 09/03/16 15:30 09/04/16 03:29 09/03/16 16:57 Vital Signs / I&O Vital Signs Date Time Temp Pulse Resp B/P Pulse Ox O2 Delivery O2 Flow Rate FiO2 09/03/16 16:36 70 09/03/16 16:30 97.9 86 18 155/90 96 09/03/16 13:38 72 09/03/16 12:11 70 09/03/16 11:00 74 09/03/16 11:00 98.2 95 18 138/98 95 09/03/16 10:10 78 09/03/16 09:00 76 09/03/16 08:00 78 09/03/16 07:00 65 09/03/16 07:00 98.0 94 16 150/91 96 09/03/16 06:00 70 09/03/16 05:00 72 09/03/16 04:00 65 09/03/16 04:00 98.0 78 16 155/85 98 09/03/16 03:00 70 09/03/16 02:00 74 09/03/16 01:00 77 09/03/16 00:00 97.9 75 16 150/91 96 09/03/16 00:00 72 09/02/16 23:00 84 09/02/16 22:00 78 09/02/16 21:00 86 09/02/16 20:00 98.0 93 16 147/96 96 09/02/16 20:00 93 09/02/16 19:00 78 09/02/16 18:12 98 I/O 09/02/16 09/02/16 09/02/16 09/03/16 09/03/16 09/03/16 07:00 15:00 23:00 07:00 15:00 23:00 Intake Total 120 ml 1070 ml 480 ml Output Total 900 ml 1050 ml Balance 120 ml 170 ml -570 ml Intake Oral 120 ml 920 ml 480 ml IV Total 150 ml Output Urine Total 900 ml 1050 ml # Voids 1 # Bowel Movements 1 0 Physical Exam GENERAL: NAD, AAOx3 SKIN: Warm and dry. HEAD: Atraumatic. Normocephalic. EYES: Pupils equal and round. No scleral icterus. No injection or drainage. ENT: No nasal bleeding or discharge. Mucous membranes pink and moist. NECK: Trachea midline. No JVD. CARDIOVASCULAR: Regular rate and rhythm. RESPIRATORY: No accessory muscle use. Clear to auscultation. Breath sounds equal bilaterally. GASTROINTESTINAL: Abdomen soft, non-tender, nondistended. Hepatic and splenic margins not palpable. MUSCULOSKELETAL: Extremities without clubbing, cyanosis, or edema. No obvious deformities. Right radial no hematoma, neurovascularly intact distally NEUROLOGICAL: Awake and alert. No obvious cranial nerve deficits. Motor grossly within normal limits. Five out of 5 muscle strength in the arms and legs. Normal speech. PSYCHIATRIC: Appropriate mood and affect; insight and judgment normal. Laboratory Laboratory Tests Test 09/03/16 05:28 White Blood Count 10.4 TH/MM3 Red Blood Count 5.36 MIL/MM3 Hemoglobin 14.8 GM/DL Hematocrit 45.3 % Mean Corpuscular Volume 84.5 FL Mean Corpuscular Hemoglobin 27.6 PG Mean Corpuscular Hemoglobin 32.6 % Concent Red Cell Distribution Width 14.0 % Platelet Count 258 TH/MM3 Mean Platelet Volume 8.9 FL Neutrophils (%) (Auto) 50.8 % Lymphocytes (%) (Auto) 36.3 % Monocytes (%) (Auto) 11.0 % Eosinophils (%) (Auto) 1.2 % Basophils (%) (Auto) 0.7 % Neutrophils # (Auto) 5.3 TH/MM3 Lymphocytes # (Auto) 3.8 TH/MM3 Monocytes # (Auto) 1.1 TH/MM3 Eosinophils # (Auto) 0.1 TH/MM3 Basophils # (Auto) 0.1 TH/MM3 CBC Comment DIFF FINAL Differential Comment Activated Partial 51.3 SEC Thromboplast Time Sodium Level 141 MEQ/L Potassium Level 3.5 MEQ/L Chloride Level 109 MEQ/L Carbon Dioxide Level 25.2 MEQ/L Anion Gap 7 MEQ/L Blood Urea Nitrogen 14 MG/DL Creatinine 0.98 MG/DL Estimat Glomerular Filtration 96 ML/MIN Rate Random Glucose 87 MG/DL Calcium Level 9.1 MG/DL Assessment and Plan Problem List: (1) Multi-vessel coronary artery stenosis (2) Chest pain (3) Hypertension (4) Anxiety disorder due to medical condition Assessment and Plan 1) Presenting with unstable angina, known MVCAD Denied CABG 2) s/p PCI of LAD with YESENIA (2.75x14), PCI of OM with YESENIA (2.5x14) Con't ASA/Brilinta 3) Plan PCI of PDA from groin on 09/05/16 in the afternoon... to allow kidney to rest post contrast 4) HTN, will increase Norvasc to 10mg daily Harlan Isaac DO Sep 03, 2016 17:21
[2016-09-03] MEDS ORDERED: amLODIPine BESYLATE 5 MG TAB PO ONE (17:30)
[2016-09-03] MEDS: ATORVASTATIN 40 MG TAB PO SCH (21:30)
[2016-09-04] VITALS (24 sets, daily range): BP systolic 125–170; BP diastolic 84–102; PULSE 69–98; RESP 16–20; TEMP 97.9–98.6; O2SAT 94–100
[2016-09-04] MEDS: HEPARIN-D5W INJ 250 ML IV SCH ×2 (04:10→20:46)
[2016-09-04] MEDS: NITROGLYCERIN 2% OINT 1 GM PACKET TOPICAL SCH ×3 (05:34→20:41)
[2016-09-04 06:13] LABS: APTT (PATIENT) 32.8 SEC (24.3-30.1)
[2016-09-04] MEDS: LISINOPRIL 20 MG TAB PO SCH (08:24)
[2016-09-04] MEDS: ASPIRIN 81 MG CHEW TAB CHEW SCH (08:24)
[2016-09-04] MEDS: METOPROLOL TARTRATE 25 MG TAB PO SCH ×2 (08:24→20:41)
[2016-09-04] MEDS: TICAGRELOR 90 MG TAB PO SCH ×2 (08:24→20:41)
--- NOTE | 2016-09-04 08:30 | MA ---
cc: BETINA AMBRIZ DO DATE: 09/03/2016 PROCEDURE Coronary angiogram, Resolute drug-eluting stent (2.75 x 14) to LAD, Resolute drug-eluting stent (2.5 x 14) to obtuse marginal. Sedation 70 minutes PREPROCEDURE DIAGNOSIS Unstable angina, multivessel coronary artery disease, denying CABG, hypertension. POSTPROCEDURE DIAGNOSIS Coronary artery disease status post Resolute drug-eluting stent (2.75 x 14) to mid LAD, Resolute drug-eluting stent (2.5 x 14) to obtuse marginal. MEDICATIONS Heparin 10,000 units, nitro 200 mcg, verapamil 2.5 mg, fentanyl 75 mcg, Versed 125 mg, nitro 200 mcg intracoronary. CONTRAST 120 cc. FLUOROSCOPY TIME 18.7 minutes. SEDATION TIME Moderate sedation 70 minutes. ESTIMATED BLOOD LOSS 30 cc INDICATION FOR PROCEDURE Mauri Damon is a pleasant 56-year-old male who originally presented a week and a half ago with chest pain. He underwent stress testing which showed ischemia and was recommended cardiac catheterization. At that time he was found to have multivessel disease. He was recommended coronary artery bypass grafting but wanted a second opinion. He ended up leaving at that time but continued to have chest pain at home. He came back to the hospital and once again was recommended consideration of coronary artery bypass grafting but did not want open heart surgery. Because of this, multivessel stenting was considered. I made sure to extensively explain his risks, alternatives and benefits to him and his and he consented as such. PROCEDURAL SUMMARY He was brought to the lab and prepped in the usual sterile fashion. The right radial artery was accessed using a modified Seldinger technique and placement of a 5/6 sheath. An EBU 3.5 guide was advanced over a J-wire to the ascending aorta to engage the left main. A BMW wire was advanced down the LAD. A compliant balloon (2.5 x 12) was used to pre-dilate and measure the lesion. A Resolute drug-eluting stent (2.75 x 14) was then advanced over the lesion and inflated. A noncompliant balloon (2.75 x 12) was then used to post dilate the stent. Angiogram post dilation showed a well-apposed stent with mild pinching of the diagonal branch with DANIELA-III flow throughout the diagonal branch. The BMW wire was then pulled back and advanced down the left circumflex to the distal obtuse marginal. A compliant balloon (2 x 10) was then advanced and inflated over the lesion. A Resolute drug-eluting stent (2.5 x 14) was then placed over the lesion and inflated. A noncompliant balloon (2.75 x 12) was then used to post dilate the stent. Post dilation shots show a well-apposed stent with no dissections or perforations noted. The BMW wire was then removed. The EBU catheter was then removed over a J-wire. A radial band was placed over the arteriotomy site for hemostasis. The patient left the cardiac medical laboratory assistant stable. FINDINGS The left main is a short vessel with adequate reflux and no significant disease. It bifurcates into an LAD and circumflex. The LAD is a normal size vessel with 10% disease throughout the proximal portion. The midportion has a 70% lesion which is intervened on as above. At the intervention site there is a small diagonal which was mildly pinched during stenting at the ostium but overall has DANIELA-III flow. The left circumflex is a normal size vessel with an 80% lesion in the first obtuse marginal. Intervention on the obtuse marginal as above. IMPRESSION 1. Unstable angina, on multiple antianginals. 2. Multivessel coronary artery disease, originally recommended surgery but did not want open heart surgery, for multivessel stenting. 3. Hypertension. RECOMMENDATIONS 1. Mr. Damon underwent stenting of his LAD and circumflex as above. He was preloaded with aspirin and Brilinta and these will be continued. 2. He has a PDA lesion which may be more difficult and we will plan on doing this Saturday after gentle hydration and make sure that his creatinine is all right. This will be done from a groin access standpoint. 3. Because of his hypertension I have increased his Norvasc to 10 mg daily. Thank you for allowing me to see Mauri Damon. If there are any questions, please do not hesitate to call. Betina Ambriz DO VGP/BT /11:50 PM /8:15 AM
--- NOTE | 2016-09-04 09:14 | HHI.PR ---
Subjective Remarks Follow-up for unstable angina/coronary artery disease Patient stated that today he is doing well. He denies any chest pain, shortness of breathing, palpitation, lightheadedness or dizziness. He stated that yesterday when he had the Nitropaste and the new medication that he started getting shortness of breathing that occur for a brief second. Patient stated a result. Patient stated that a provider was called and he was told was okay. Most likely provider was station jailer because I was not notified. Otherwise no events noted. Objective Vitals Vital Signs Date Time Temp Pulse Resp B/P Pulse Ox O2 Delivery O2 Flow Rate FiO2 09/04/16 06:00 69 09/04/16 05:00 76 09/04/16 04:00 84 09/04/16 04:00 98.4 86 20 125/84 100 09/04/16 03:00 72 09/04/16 02:00 78 09/04/16 01:00 74 09/04/16 00:00 97.9 85 20 137/89 95 09/04/16 00:00 76 09/03/16 23:00 82 09/03/16 22:00 106 09/03/16 21:00 96 09/03/16 20:00 106 09/03/16 20:00 97.6 94 20 136/84 100 09/03/16 19:00 96 09/03/16 18:00 80 09/03/16 17:00 94 09/03/16 16:36 70 09/03/16 16:30 97.9 86 18 155/90 96 09/03/16 13:38 72 09/03/16 12:11 70 09/03/16 11:00 74 09/03/16 11:00 98.2 95 18 138/98 95 09/03/16 10:10 78 I/O 09/03/16 09/03/16 09/03/16 09/04/16 09/04/16 09/04/16 07:00 15:00 23:00 07:00 15:00 23:00 Intake Total 480 ml 1000 ml 200 ml Output Total 1050 ml 900 ml 300 ml Balance -570 ml 100 ml -100 ml Intake Oral 480 ml 400 ml 200 ml IV Total 600 ml Output Urine Total 1050 ml 900 ml 300 ml # Voids 1 # Bowel Movements 1 Result Diagram: 09/03/1652709/03/16527 Objective Remarks GENERAL: in NAD CARDIOVASCULAR: Regular rate and rhythm without murmurs, gallops, or rubs. RESPIRATORY: Breath sounds equal bilaterally. No accessory muscle use. GASTROINTESTINAL: Abdomen soft, non-tender, nondistended. MUSCULOSKELETAL: No cyanosis, or edema. BACK: Nontender without obvious deformity. No CVA tenderness. Medications and IVs Current Medications Sodium Chloride (NS Flush) 2 ml UNSCH PRN IVF FLUSH AFTER USING IV ACCESS; Start 09/01/16 at 21:15 Aspirin (Aspirin Chew) 81 mg ONCE ONCE CHEW Last administered on 09/01/16 21: 15; Start 09/01/16 at 21:15; Stop 09/01/16 at 21:16; Status DC Heparin Sodium (Porcine) (Heparin Inj) 4,000 units ONCE ONCE IV Last administered on 09/01/16 21:45; Start 09/01/16 at 21:45; Stop 09/01/16 at 21:46; Status DC Heparin Sodium (Porcine) (Heparin Inj) 5,000 units UNSCH PRN IV APTT LESS THAN 25; Start 09/02/16 at 03:45 Heparin Sodium (Porcine) 2500 units 2,500 units UNSCH PRN IV APTT 25 TO 39; Start 09/02/16 at 03:45 Heparin Sodium/ Dextrose (Heparin-D5W Inj) 250 ml @ 0 mls/hr TITRATE IV Last administered on 09/04/16 04:10; Start 09/01/16 at 21:45 Nitroglycerin (Nitroglycerin 2% Oint) 1 inch ONCE ONCE TOPICAL Last administered on 09/01/16 21:45; Start 09/01/16 at 21:45; Stop 09/01/16 at 22:01; Status DC Acetaminophen (Tylenol) 650 mg Q4H PRN PO TEMP > 100.4 Last administered on 08:25; Start 09/01/16 at 22:30 Ondansetron HCl (Zofran Inj) 4 mg Q6H PRN IVP NAUSEA OR VOMITING; Start at 22:30 Acetaminophen (Tylenol) 650 mg Q6H PRN PO PAIN SCALE 1 TO 2 Last administered on 09/02/16 10:03; Start 09/01/16 at 22:30 Morphine Sulfate (Morphine Inj) 2 mg Q3H PRN IV PUSH Pain 3-5; if unable to take PO; Start 09/01/16 at 22:30 Morphine Sulfate (Morphine Inj) 4 mg Q3H PRN IV PUSH Pain 6-10;if unable to take PO; Start 09/01/16 at 22:30 Naloxone HCl (Narcan Inj) 0.4 mg UNSCH PRN IV SEE LABEL COMMENTS; Start at 22:30 Magnesium Hydroxide (Milk Of Magnesia Liq) 30 ml Q12H PRN PO MILD - MODERATE CONSTIPATION; Start 09/01/16 at 22:30 Sennosides (Senokot) 17.2 mg Q12H PRN PO MODERATE - SEVERE CONSTIPATION; Start 09/01/16 at 22:30 Bisacodyl (Dulcolax Supp) 10 mg DAILY PRN RECTAL SEVERE CONSITIPATION; Start at 22:30 Lactulose (Lactulose Liq) 30 ml DAILY PRN PO SEVERE CONSITIPATION; Start at 22:30 Amlodipine Besylate (Norvasc) 5 mg DAILY PO Last administered on 09/03/16 08: 27; Start 09/02/16 at 09:00; Stop 09/03/16 at 17:23; Status DC Aspirin (Ecotrin Ec) 81 mg DAILY PO ; Start 09/02/16 at 09:00; Stop 09/02/16 at 09 :00; Status DC Atorvastatin Calcium (Lipitor) 40 mg HS PO Last administered on 09/03/16 21:30 ; Start 09/02/16 at 21:00 Lisinopril (Prinivil) 20 mg DAILY PO Last administered on 09/04/16 08:24; Start 09/02/16 at 09:00 Metoprolol Tartrate (Lopressor) 25 mg Q12HR PO Last administered on 09/04/16 08:24; Start 09/02/16 at 09:00 Nitroglycerin (Nitroglycerin 2% Oint) 0.5 inch Q8HR TOPICAL Last administered on 09/03/16 21:30; Start 09/02/16 at 06:00 Aspirin (Ecotrin Ec) 325 mg DAILY PO Last administered on 09/02/16 08:59; Start 09/02/16 at 09:00; Stop 09/02/16 at 14:39; Status DC Ticagrelor (Brilinta) 180 mg ONCE ONCE PO Last administered on 09/02/16 15:17 ; Start 09/02/16 at 14:45; Stop 09/02/16 at 14:46; Status DC Ticagrelor (Brilinta) 90 mg BID PO Last administered on 09/04/16 08:24; Start 09/02/16 at 21:00 Aspirin (Aspirin Chew) 81 mg DAILY CHEW Last administered on 09/04/16 08:24; Start 09/03/16 at 09:00 Alprazolam 0.25 mg 0.25 mg Q8H PRN PO anxiety Last administered on 09/03/16 08 :26; Start 09/02/16 at 20:00 Heparin Sodium/ Sodium Chloride (Heparin-NS/Pf Inj) 500 ml @ As Directed STK- MED ONCE .ROUTE Last administered on 09/03/16 13:26; Start 09/03/16 at 13:26; Stop 09/03/16 at 13:27; Status DC Midazolam HCl (Versed Inj) 2 mg STK-MED ONCE .ROUTE Last administered on 14:08; Start 09/03/16 at 13:27; Stop 09/03/16 at 13:28; Status DC Fentanyl Citrate (fentaNYL INJ) 100 mcg STK-MED ONCE .ROUTE Last administered on 09/03/16 14:08; Start 09/03/16 at 13:27; Stop 09/03/16 at 13:28; Status DC Verapamil HCl (Isoptin Inj) 5 mg STK-MED ONCE .ROUTE Last administered on 14:09; Start 09/03/16 at 13:27; Stop 09/03/16 at 13:28; Status DC Heparin Sodium (Porcine) 43448 units 10,000 units STK-MED ONCE .ROUTE Last administered on 09/03/16 14:09; Start 09/03/16 at 13:27; Stop 09/03/16 at 13:28 ; Status DC Nitroglycerin 5 ml @ As Directed STK-MED ONCE .ROUTE Last administered on 14:54; Start 09/03/16 at 13:27; Stop 09/03/16 at 13:28; Status DC Heparin Sodium/ Sodium Chloride 500 ml @ As Directed STK-MED ONCE .ROUTE Last administered on 09/03/16 14:31; Start 09/03/16 at 14:31; Stop 09/03/16 at 14:32 ; Status DC Sodium Chloride (NS 1000 ml Inj) 1,000 ml @ 60 mls/hr [id number] IV Last administered on 09/03/16 16:57; Start 09/03/16 at 15:30; Stop 09/04/16 at 03:29 ; Status DC Acetaminophen (Tylenol) 325 mg Q4H PRN PO PAIN SCALE 1 TO 2; Start 09/03/16 at 15:30; Stop 09/03/16 at 15:42; Status DC Oxycodone/ Acetaminophen (Percocet 5-325 Mg) 1 tab Q4H PRN PO PAIN SCALE 3 TO 5; Start 09/03/16 at 15:30; Stop 09/03/16 at 15:42; Status DC Oxycodone/ Acetaminophen (Percocet 10-325 Mg) 1 tab Q4H PRN PO PAIN SCALE 6 TO 10; Start 09/03/16 at 15:30; Stop 09/03/16 at 15:42; Status DC Morphine Sulfate (Morphine Inj) 2 mg Q30M PRN IV PUSH BREAKTHROUGH PAIN; Start 09/03/16 at 15:30; Stop 09/03/16 at 15:42; Status DC Oxycodone/ Acetaminophen (Percocet 5-325 Mg) 1 tab ONCE ONCE PO Last administered on 09/03/16 16:57; Start 09/03/16 at 16:00; Stop 09/03/16 at 16:44 ; Status DC Amlodipine Besylate (Norvasc) 5 mg ONCE ONCE PO Last administered on 17:30; Start 09/03/16 at 17:30; Stop 09/03/16 at 17:31; Status DC Amlodipine Besylate (Norvasc) 10 mg DAILY PO Last administered on 09/04/16 08: 24; Start 09/04/16 at 09:00 A/P Problem List: (1) Multi-vessel coronary artery stenosis ICD Code: I25.10 Status: Acute (2) Chest pain ICD Code: R07.9 Status: Acute (3) Hypertension ICD Code: I10 Status: Chronic (4) Anxiety disorder due to medical condition ICD Code: F06.4 Status: Acute Assessment and Plan Unstable angina/multivessel disease -Patient declined CABG. -Status post cardiac catheterization with drug-eluting stent placement of the LAD/OM on 09/03/16. -Patient was put on Brilinta. - He will have cardiac catheterization for PDA done tomorrow in the afternoon. -Continue heparin drip, aspirin, metoprolol, atorvastatin, and lisinopril. Coronary disease/hypertension -Continue home medication. -Patient was put on Norvasc. DVT prophylaxis: Heparin drip. Discharge Planning Patient scheduled for cardiac catheterization tomorrow afternoon most likely can be discharged on if there are no complications. Dee Gordon MD Sep 04, 2016 09:14
[2016-09-04 11:21] LABS: AUTOMATED NEUTROPHIL # 5.2 TH/MM3 (1.8-7.7); BASOPHIL # 0.1 TH/MM3 (0-0.2); BASOPHIL % 0.6 % (0.0-2.0); EOSINOPHIL # 0.1 TH/MM3 (0-0.4); EOSINOPHIL % 1.2 % (0.0-4.0); HEMATOCRIT 42.1 % (39.0-51.0); HEMO FLAGS DIFF FINAL; LYMPH % 31.7 % (9.0-44.0); LYMPHOCYTE # 2.9 TH/MM3 (1.0-4.8); MEAN CELL VOLUME 84.5 FL (80.0-100.0); MEAN CORPUSCULAR HEMOGLOBIN 27.2 PG (27.0-34.0); MEAN CORPUSCULAR HGB CONC 32.2 % (32.0-36.0); MONO % 10.3 % (0.0-8.0); NEUT % 56.2 % (16.0-70.0); PLATELET COUNT 251 TH/MM3 (150-450); RED BLOOD COUNT 4.98 MIL/MM3 (4.50-5.90); RED CELL DISTRIBUTION WIDTH 13.8 % (11.6-17.2); WHITE BLOOD COUNT 9.2 TH/MM3 (4.0-11.0)
[2016-09-04 11:28] LABS: BICARBONATE 25.8 MEQ/L (21.0-32.0); POTASSIUM 3.6 MEQ/L (3.5-5.1)
--- NOTE | 2016-09-04 11:57 | PD.CARD.PN ---
Subjective Subjective Remarks Mild SOB after receiving Brilinta No chest pain Objective Medications Current Medications Medications (Trade) Dose Ordered Sig/Juan C Route Start Time Stop Time Status Last Admin (NS Flush) 2 ml UNSCH PRN IVF 09/01/16 21:15 (Heparin Inj) 5,000 units UNSCH PRN IV 09/02/16 03:45 Heparin Sodium (Porcine) 2500 units 2,500 units UNSCH PRN IV 09/02/16 03:45 (Heparin-D5W Inj) 250 ml @ 0 mls/hr TITRATE IV 09/01/16 21:45 09/04/16 04:10 (Tylenol) 650 mg Q4H PRN PO 09/01/16 22:30 09/04/16 08:25 (Zofran Inj) 4 mg Q6H PRN IVP 09/01/16 22:30 (Tylenol) 650 mg Q6H PRN PO 09/01/16 22:30 09/02/16 10:03 (Morphine Inj) 2 mg Q3H PRN IV PUSH 09/01/16 22:30 (Morphine Inj) 4 mg Q3H PRN IV PUSH 09/01/16 22:30 (Narcan Inj) 0.4 mg UNSCH PRN IV 09/01/16 22:30 (Milk Of Magnesia Liq) 30 ml Q12H PRN PO 09/01/16 22:30 (Senokot) 17.2 mg Q12H PRN PO 09/01/16 22:30 (Dulcolax Supp) 10 mg DAILY PRN RECTAL 09/01/16 22:30 (Lactulose Liq) 30 ml DAILY PRN PO 09/01/16 22:30 (Lipitor) 40 mg HS PO 09/02/16 21:00 09/03/16 21:30 (Prinivil) 20 mg DAILY PO 09/02/16 09:00 09/04/16 08:24 (Lopressor) 25 mg Q12HR PO 09/02/16 09:00 09/04/16 08:24 (Nitroglycerin 2% Oint) 0.5 inch Q8HR TOPICAL 09/02/16 06:00 09/03/16 21:30 (Brilinta) 90 mg BID PO 09/02/16 21:00 09/04/16 08:24 (Aspirin Chew) 81 mg DAILY CHEW 09/03/16 09:00 09/04/16 08:24 (Xanax) 0.25 mg Q8H PRN PO 09/02/16 20:00 09/03/16 08:26 (Norvasc) 10 mg DAILY PO 09/04/16 09:00 09/04/16 08:24 Vital Signs / I&O Vital Signs Date Time Temp Pulse Resp B/P Pulse Ox O2 Delivery O2 Flow Rate FiO2 09/04/16 10:28 18 09/04/16 06:00 69 09/04/16 05:00 76 09/04/16 04:00 84 09/04/16 04:00 98.4 86 20 125/84 100 09/04/16 03:00 72 09/04/16 02:00 78 09/04/16 01:00 74 09/04/16 00:00 97.9 85 20 137/89 95 09/04/16 00:00 76 09/03/16 23:00 82 09/03/16 22:00 106 09/03/16 21:00 96 09/03/16 20:00 106 09/03/16 20:00 97.6 94 20 136/84 100 09/03/16 19:00 96 09/03/16 18:00 80 09/03/16 17:00 94 09/03/16 16:36 70 09/03/16 16:30 97.9 86 18 155/90 96 09/03/16 13:38 72 09/03/16 12:11 70 I/O 09/03/16 09/03/16 09/03/16 09/04/16 09/04/16 09/04/16 07:00 15:00 23:00 07:00 15:00 23:00 Intake Total 480 ml 1000 ml 200 ml Output Total 1050 ml 900 ml 300 ml Balance -570 ml 100 ml -100 ml Intake Oral 480 ml 400 ml 200 ml IV Total 600 ml Output Urine Total 1050 ml 900 ml 300 ml # Voids 1 # Bowel Movements 1 Physical Exam GENERAL: NAD, AAOx3 SKIN: Warm and dry. HEAD: Atraumatic. Normocephalic. EYES: Pupils equal and round. No scleral icterus. No injection or drainage. ENT: No nasal bleeding or discharge. Mucous membranes pink and moist. NECK: Trachea midline. No JVD. CARDIOVASCULAR: Regular rate and rhythm. RESPIRATORY: No accessory muscle use. Clear to auscultation. Breath sounds equal bilaterally. GASTROINTESTINAL: Abdomen soft, non-tender, nondistended. Hepatic and splenic margins not palpable. MUSCULOSKELETAL: Extremities without clubbing, cyanosis, or edema. No obvious deformities. Right radial no hematoma, neurovascularly intact distally NEUROLOGICAL: Awake and alert. No obvious cranial nerve deficits. Motor grossly within normal limits. Five out of 5 muscle strength in the arms and legs. Normal speech. PSYCHIATRIC: Appropriate mood and affect; insight and judgment normal. Laboratory Laboratory Tests Test 09/04/16 09/04/16 05:38 10:50 Activated Partial 32.8 SEC 40.0 SEC Thromboplast Time White Blood Count 9.2 TH/MM3 Red Blood Count 4.98 MIL/MM3 Hemoglobin 13.6 GM/DL Hematocrit 42.1 % Mean Corpuscular Volume 84.5 FL Mean Corpuscular Hemoglobin 27.2 PG Mean Corpuscular Hemoglobin 32.2 % Concent Red Cell Distribution Width 13.8 % Platelet Count 251 TH/MM3 Mean Platelet Volume 8.8 FL Neutrophils (%) (Auto) 56.2 % Lymphocytes (%) (Auto) 31.7 % Monocytes (%) (Auto) 10.3 % Eosinophils (%) (Auto) 1.2 % Basophils (%) (Auto) 0.6 % Neutrophils # (Auto) 5.2 TH/MM3 Lymphocytes # (Auto) 2.9 TH/MM3 Monocytes # (Auto) 0.9 TH/MM3 Eosinophils # (Auto) 0.1 TH/MM3 Basophils # (Auto) 0.1 TH/MM3 CBC Comment DIFF FINAL Differential Comment Sodium Level 143 MEQ/L Potassium Level 3.6 MEQ/L Chloride Level 110 MEQ/L Carbon Dioxide Level 25.8 MEQ/L Anion Gap 7 MEQ/L Blood Urea Nitrogen 12 MG/DL Creatinine 0.89 MG/DL Estimat Glomerular Filtration 107 ML/MIN Rate Random Glucose 95 MG/DL Calcium Level 9.0 MG/DL Assessment and Plan Problem List: (1) Multi-vessel coronary artery stenosis (2) Chest pain (3) Hypertension (4) Anxiety disorder due to medical condition Assessment and Plan 1) Presenting with unstable angina, known MVCAD He denied CABG 2) s/p PCI of LAD with YESENIA (2.75x14), PCI of OM with YESENIA (2.5x14) Con't ASA/Brilinta 3) Plan PCI of PDA from groin tomorrow, 09/05/16 in the afternoon... to allow kidney to rest post contrast 4) HTN, will increase Norvasc to 10mg daily... now controlled 5) SOB due to Brilinta should be gone around 1 week Harlan Isaac DO Sep 04, 2016 11:57
[2016-09-04] MEDS: ALPRAZolam 0.25 MG TAB PO PRN ×2 (15:18→23:36)
[2016-09-04] MEDS: ATORVASTATIN 40 MG TAB PO SCH (20:40)
[2016-09-04 21:15] LABS: APTT (PATIENT) 45.6 SEC (24.3-30.1)
[2016-09-05] VITALS (37 sets, daily range): BP systolic 132–169; BP diastolic 86–106; PULSE 72–110; RESP 12–18; TEMP 97.6–98.5; O2SAT 93–97
[2016-09-05 05:54] LABS: AUTOMATED NEUTROPHIL # 4.8 TH/MM3 (1.8-7.7); BASOPHIL # 0.1 TH/MM3 (0-0.2); BASOPHIL % 0.6 % (0.0-2.0); EOSINOPHIL # 0.2 TH/MM3 (0-0.4); EOSINOPHIL % 1.7 % (0.0-4.0); HEMATOCRIT 40.3 % (39.0-51.0); HEMO FLAGS DIFF FINAL; LYMPHOCYTE # 3.3 TH/MM3 (1.0-4.8); MEAN CELL VOLUME 84.2 FL (80.0-100.0); MEAN CORPUSCULAR HGB CONC 33.3 % (32.0-36.0); MONO % 10.3 % (0.0-8.0); NEUT % 51.4 % (16.0-70.0); PLATELET COUNT 258 TH/MM3 (150-450); RED BLOOD COUNT 4.79 MIL/MM3 (4.50-5.90); RED CELL DISTRIBUTION WIDTH 13.8 % (11.6-17.2); WHITE BLOOD COUNT 9.3 TH/MM3 (4.0-11.0)
[2016-09-05 06:01] LABS: APTT (PATIENT) 48.3 SEC (24.3-30.1)
[2016-09-05 06:17] LABS: BICARBONATE 20.6 MEQ/L (21.0-32.0); POTASSIUM 3.5 MEQ/L (3.5-5.1)
[2016-09-05] MEDS: NITROGLYCERIN 2% OINT 1 GM PACKET TOPICAL SCH ×2 (06:34→21:26)
[2016-09-05] MEDS: ASPIRIN 81 MG CHEW TAB CHEW SCH (08:30)
[2016-09-05] MEDS: LISINOPRIL 20 MG TAB PO SCH (08:30)
[2016-09-05] MEDS: TICAGRELOR 90 MG TAB PO SCH ×2 (08:30→21:26)
[2016-09-05] MEDS: ALPRAZolam 0.25 MG TAB PO PRN ×2 (08:30→23:22)
[2016-09-05] MEDS: METOPROLOL TARTRATE 25 MG TAB PO SCH ×2 (08:30→21:26)
[2016-09-05] MEDS: SODIUM CHLORIDE 0.9% FLUSH 10 ML FLUSH IVF PRN ×2 (08:30→21:28)
--- NOTE | 2016-09-05 09:07 | HHI.PR ---
Subjective Remarks Follow-up for unstable angina He stated on his left side of chest felt a sharp pain that is faint and that he thinks it because of anxiety. he stated that he does not have the pressure type chest pain. Denied any palpitation, shortness of breathing, lightheadedness or dizziness. Objective Vitals Vital Signs Date Time Temp Pulse Resp B/P Pulse Ox O2 Delivery O2 Flow Rate FiO2 09/05/16 06:00 77 09/05/16 05:00 84 09/05/16 04:00 82 09/05/16 03:00 98.5 84 12 150/86 97 09/05/16 03:00 76 09/05/16 02:00 78 09/05/16 01:00 78 09/05/16 00:00 80 09/04/16 23:00 97.9 81 16 138/91 94 09/04/16 23:00 82 09/04/16 22:00 86 09/04/16 21:00 158/84 09/04/16 21:00 98 09/04/16 20:00 98.1 94 16 170/102 97 09/04/16 20:00 92 09/04/16 19:00 86 09/04/16 18:00 76 09/04/16 17:00 72 09/04/16 16:00 80 09/04/16 16:00 98.2 81 20 137/96 97 09/04/16 15:00 87 09/04/16 14:00 84 09/04/16 13:00 84 09/04/16 13:00 84 09/04/16 12:00 84 09/04/16 12:00 98.6 84 20 131/86 94 09/04/16 11:00 69 09/04/16 10:28 18 09/04/16 10:00 72 I/O 09/04/16 09/04/16 09/04/16 09/05/16 09/05/16 09/05/16 07:00 15:00 23:00 07:00 15:00 23:00 Intake Total 200 ml 1420 ml 720 ml Output Total 300 ml 1150 ml 675 ml Balance -100 ml 270 ml 45 ml Intake Oral 200 ml 720 ml 720 ml IV Total 700 ml Output Urine Total 300 ml 1150 ml 675 ml # Bowel Movements 1 Result Diagram: 09/05/16 0532 09/05/16 0532 Objective Remarks GENERAL: in NAD CARDIOVASCULAR: Regular rate and rhythm without murmurs, gallops, or rubs. RESPIRATORY: Breath sounds equal bilaterally. No accessory muscle use. GASTROINTESTINAL: Abdomen soft, non-tender, nondistended. MUSCULOSKELETAL: No cyanosis, or edema. BACK: Nontender without obvious deformity. No CVA tenderness. Medications and IVs Current Medications Sodium Chloride (NS Flush) 2 ml UNSCH PRN IVF FLUSH AFTER USING IV ACCESS Last administered on 09/05/16 08:30; Start 09/01/16 at 21:15 Aspirin (Aspirin Chew) 81 mg ONCE ONCE CHEW Last administered on 09/01/16 21: 15; Start 09/01/16 at 21:15; Stop 09/01/16 at 21:16; Status DC Heparin Sodium (Porcine) (Heparin Inj) 4,000 units ONCE ONCE IV Last administered on 09/01/16 21:45; Start 09/01/16 at 21:45; Stop 09/01/16 at 21:46; Status DC Heparin Sodium (Porcine) (Heparin Inj) 5,000 units UNSCH PRN IV APTT LESS THAN 25; Start 09/02/16 at 03:45 Heparin Sodium (Porcine) 2500 units 2,500 units UNSCH PRN IV APTT 25 TO 39; Start 09/02/16 at 03:45 Heparin Sodium/ Dextrose (Heparin-D5W Inj) 250 ml @ 0 mls/hr TITRATE IV Last administered on 09/04/16 20:46; Start 09/01/16 at 21:45 Nitroglycerin (Nitroglycerin 2% Oint) 1 inch ONCE ONCE TOPICAL Last administered on 09/01/16 21:45; Start 09/01/16 at 21:45; Stop 09/01/16 at 22:01; Status DC Acetaminophen (Tylenol) 650 mg Q4H PRN PO TEMP > 100.4 Last administered on 08:25; Start 09/01/16 at 22:30 Ondansetron HCl (Zofran Inj) 4 mg Q6H PRN IVP NAUSEA OR VOMITING; Start at 22:30 Acetaminophen (Tylenol) 650 mg Q6H PRN PO PAIN SCALE 1 TO 2 Last administered on 09/02/16 10:03; Start 09/01/16 at 22:30 Morphine Sulfate (Morphine Inj) 2 mg Q3H PRN IV PUSH Pain 3-5; if unable to take PO; Start 09/01/16 at 22:30 Morphine Sulfate (Morphine Inj) 4 mg Q3H PRN IV PUSH Pain 6-10;if unable to take PO; Start 09/01/16 at 22:30 Naloxone HCl (Narcan Inj) 0.4 mg UNSCH PRN IV SEE LABEL COMMENTS; Start at 22:30 Magnesium Hydroxide (Milk Of Magnesia Liq) 30 ml Q12H PRN PO MILD - MODERATE CONSTIPATION; Start 09/01/16 at 22:30 Sennosides (Senokot) 17.2 mg Q12H PRN PO MODERATE - SEVERE CONSTIPATION; Start 09/01/16 at 22:30 Bisacodyl (Dulcolax Supp) 10 mg DAILY PRN RECTAL SEVERE CONSITIPATION; Start at 22:30 Lactulose (Lactulose Liq) 30 ml DAILY PRN PO SEVERE CONSITIPATION; Start at 22:30 Amlodipine Besylate (Norvasc) 5 mg DAILY PO Last administered on 09/03/16 08: 27; Start 09/02/16 at 09:00; Stop 09/03/16 at 17:23; Status DC Aspirin (Ecotrin Ec) 81 mg DAILY PO ; Start 09/02/16 at 09:00; Stop 09/02/16 at 09 :00; Status DC Atorvastatin Calcium (Lipitor) 40 mg HS PO Last administered on 09/04/16 20:40 ; Start 09/02/16 at 21:00 Lisinopril (Prinivil) 20 mg DAILY PO Last administered on 09/05/16 08:30; Start 09/02/16 at 09:00 Metoprolol Tartrate (Lopressor) 25 mg Q12HR PO Last administered on 09/05/16 08:30; Start 09/02/16 at 09:00 Nitroglycerin (Nitroglycerin 2% Oint) 0.5 inch Q8HR TOPICAL Last administered on 09/05/16 06:34; Start 09/02/16 at 06:00 Aspirin (Ecotrin Ec) 325 mg DAILY PO Last administered on 09/02/16 08:59; Start 09/02/16 at 09:00; Stop 09/02/16 at 14:39; Status DC Ticagrelor (Brilinta) 180 mg ONCE ONCE PO Last administered on 09/02/16 15:17 ; Start 09/02/16 at 14:45; Stop 09/02/16 at 14:46; Status DC Ticagrelor (Brilinta) 90 mg BID PO Last administered on 09/05/16 08:30; Start 09/02/16 at 21:00 Aspirin (Aspirin Chew) 81 mg DAILY CHEW Last administered on 09/05/16 08:30; Start 09/03/16 at 09:00 Alprazolam 0.25 mg 0.25 mg Q8H PRN PO anxiety Last administered on 09/05/16 08 :30; Start 09/02/16 at 20:00 Heparin Sodium/ Sodium Chloride (Heparin-NS/Pf Inj) 500 ml @ As Directed STK- MED ONCE .ROUTE Last administered on 09/03/16 13:26; Start 09/03/16 at 13:26; Stop 09/03/16 at 13:27; Status DC Midazolam HCl (Versed Inj) 2 mg STK-MED ONCE .ROUTE Last administered on 14:08; Start 09/03/16 at 13:27; Stop 09/03/16 at 13:28; Status DC Fentanyl Citrate (fentaNYL INJ) 100 mcg STK-MED ONCE .ROUTE Last administered on 09/03/16 14:08; Start 09/03/16 at 13:27; Stop 09/03/16 at 13:28; Status DC Verapamil HCl (Isoptin Inj) 5 mg STK-MED ONCE .ROUTE Last administered on 14:09; Start 09/03/16 at 13:27; Stop 09/03/16 at 13:28; Status DC Heparin Sodium (Porcine) 81491 units 10,000 units STK-MED ONCE .ROUTE Last administered on 09/03/16 14:09; Start 09/03/16 at 13:27; Stop 09/03/16 at 13:28 ; Status DC Nitroglycerin 5 ml @ As Directed STK-MED ONCE .ROUTE Last administered on 14:54; Start 09/03/16 at 13:27; Stop 09/03/16 at 13:28; Status DC Heparin Sodium/ Sodium Chloride 500 ml @ As Directed STK-MED ONCE .ROUTE Last administered on 09/03/16 14:31; Start 09/03/16 at 14:31; Stop 09/03/16 at 14:32 ; Status DC Sodium Chloride (NS 1000 ml Inj) 1,000 ml @ 60 mls/hr [id number] IV Last administered on 09/03/16 16:57; Start 09/03/16 at 15:30; Stop 09/04/16 at 03:29 ; Status DC Acetaminophen (Tylenol) 325 mg Q4H PRN PO PAIN SCALE 1 TO 2; Start 09/03/16 at 15:30; Stop 09/03/16 at 15:42; Status DC Oxycodone/ Acetaminophen (Percocet 5-325 Mg) 1 tab Q4H PRN PO PAIN SCALE 3 TO 5; Start 09/03/16 at 15:30; Stop 09/03/16 at 15:42; Status DC Oxycodone/ Acetaminophen (Percocet 10-325 Mg) 1 tab Q4H PRN PO PAIN SCALE 6 TO 10; Start 09/03/16 at 15:30; Stop 09/03/16 at 15:42; Status DC Morphine Sulfate (Morphine Inj) 2 mg Q30M PRN IV PUSH BREAKTHROUGH PAIN; Start 09/03/16 at 15:30; Stop 09/03/16 at 15:42; Status DC Oxycodone/ Acetaminophen (Percocet 5-325 Mg) 1 tab ONCE ONCE PO Last administered on 09/03/16 16:57; Start 09/03/16 at 16:00; Stop 09/03/16 at 16:44 ; Status DC Amlodipine Besylate (Norvasc) 5 mg ONCE ONCE PO Last administered on 17:30; Start 09/03/16 at 17:30; Stop 09/03/16 at 17:31; Status DC Amlodipine Besylate (Norvasc) 10 mg DAILY PO Last administered on 09/05/16 08: 30; Start 09/04/16 at 09:00 Iohexol (OMNIPAQUE 350 INJ (Double Needle Operator)) 100 ml STK-MED ONCE OTHER ; Start at 13:37; Stop 09/04/16 at 10:00; Status DC Iohexol (OMNIPAQUE 350 INJ (Double Needle Operator)) 50 ml STK-MED ONCE OTHER ; Start at 13:37; Stop 09/04/16 at 10:00; Status DC A/P Problem List: (1) Multi-vessel coronary artery stenosis ICD Code: I25.10 Status: Acute (2) Chest pain ICD Code: R07.9 Status: Acute (3) Hypertension ICD Code: I10 Status: Chronic (4) Anxiety disorder due to medical condition ICD Code: F06.4 Status: Acute Assessment and Plan Unstable angina/multivessel disease -Patient declined CABG. -Status post cardiac catheterization with drug-eluting stent placement of the LAD/OM on 09/03/16. - He will have cardiac catheterization for PDA done today. -Continue heparin drip, aspirin, metoprolol, atorvastatin, Brilinta and lisinopril. Coronary disease/hypertension -Continue home medication. -Patient was put on Norvasc. DVT prophylaxis: Heparin drip. Discharge Planning Patient scheduled for cardiac catheterization this afternoon and if he does well most likely can be discharge tomorrow. Dee Gordon MD Sep 05, 2016 09:07
[2016-09-05] MEDS ORDERED: BRIL90TA PO (09:10)
[2016-09-05] MEDS ORDERED: AMLO10 PO (09:10)
--- NOTE | 2016-09-05 09:11 | HHI.DCPOC ---
Discharge Care Plan Diagnosis: (1) Hypertension (2) CAD (coronary artery disease) (3) Unstable angina Goals to Promote Your Health * To prevent worsening of your condition and complications * To maintain your health at the optimal level Directions to Meet Your Goals Take your medications as prescribed Follow your dietary instruction Follow activity as directed Keep your appointments as scheduled Take your immunizations and boosters as scheduled If your symptoms worsen call your PCP, if no PCP go to Urgent Care Center or Emergency Room Smoking is Dangerous to Your Health. Avoid second hand smoke Call the 24-hour hour crisis hotline for domestic abuse at Dee Gordon MD Sep 05, 2016 09:11
[2016-09-05] MEDS ORDERED: IOHEXOL 350 MG/ML 100 ML BTL (for Cath Lab) OTHER ONE (14:13)
[2016-09-05] MEDS ORDERED: HEPARIN-NS/PF INJ 500 ML ONE ×2 (14:53→14:59)
[2016-09-05] MEDS ORDERED: MIDAZOLAM HCL 2 MG/2 ML VIAL ONE (15:05)
[2016-09-05] MEDS ORDERED: HEPARIN SODIUM - IV 10,000 UNITS/10 ML VIAL ONE (15:24)
[2016-09-05] MEDS ORDERED: LIDOCAINE HCL 1% 50 ML VIAL INFIL PRN (16:30)
[2016-09-05] MEDS ORDERED: SODIUM CHLOR 0.9% 250 ML INJ 250 ML IV PRN (16:30)
[2016-09-05] MEDS ORDERED: MISC INFORMATION XX ONE (16:30)
[2016-09-05] MEDS ORDERED: ATROPINE SULFATE 1 MG/ML VIAL IV PRN (16:30)
[2016-09-05] MEDS: MORPHINE SULFATE 8 MG/ML INJ IV PUSH ONE (16:30)
[2016-09-05] MEDS ORDERED: LORazepam 2 MG/ML VIAL IV PRN (16:30)
--- NOTE | 2016-09-05 18:15 | PD.CARD.PN ---
Subjective Subjective Remarks Doing well post PDA stenting No chest pain Objective Medications Current Medications Medications (Trade) Dose Ordered Sig/Juan C Route Start Time Stop Time Status Last Admin (NS Flush) 2 ml UNSCH PRN IVF 09/01/16 21:15 09/05/16 08:30 (Heparin Inj) 5,000 units UNSCH PRN IV 09/02/16 03:45 Heparin Sodium (Porcine) 2500 units 2,500 units UNSCH PRN IV 09/02/16 03:45 (Heparin-D5W Inj) 250 ml @ 0 mls/hr TITRATE IV 09/01/16 21:45 09/04/16 20:46 (Tylenol) 650 mg Q4H PRN PO 09/01/16 22:30 09/04/16 08:25 (Zofran Inj) 4 mg Q6H PRN IVP 09/01/16 22:30 (Tylenol) 650 mg Q6H PRN PO 09/01/16 22:30 09/02/16 10:03 (Morphine Inj) 2 mg Q3H PRN IV PUSH 09/01/16 22:30 (Morphine Inj) 4 mg Q3H PRN IV PUSH 09/01/16 22:30 (Narcan Inj) 0.4 mg UNSCH PRN IV 09/01/16 22:30 (Milk Of Magnesia Liq) 30 ml Q12H PRN PO 09/01/16 22:30 (Senokot) 17.2 mg Q12H PRN PO 09/01/16 22:30 (Dulcolax Supp) 10 mg DAILY PRN RECTAL 09/01/16 22:30 (Lactulose Liq) 30 ml DAILY PRN PO 09/01/16 22:30 (Lipitor) 40 mg HS PO 09/02/16 21:00 09/04/16 20:40 (Prinivil) 20 mg DAILY PO 09/02/16 09:00 09/05/16 08:30 (Lopressor) 25 mg Q12HR PO 09/02/16 09:00 09/05/16 08:30 (Nitroglycerin 2% Oint) 0.5 inch Q8HR TOPICAL 09/02/16 06:00 09/05/16 06:34 (Brilinta) 90 mg BID PO 09/02/16 21:00 09/05/16 08:30 (Aspirin Chew) 81 mg DAILY CHEW 09/03/16 09:00 09/05/16 08:30 (Xanax) 0.25 mg Q8H PRN PO 09/02/16 20:00 09/05/16 08:30 (Norvasc) 10 mg DAILY PO 09/04/16 09:00 09/05/16 08:30 (Ativan Inj) 0.5 mg UNSCH PRN IV 09/05/16 16:30 09/06/16 16:29 09/05/16 17:53 Atropine Sulfate 0.5 mg 0.5 mg UNSCH PRN IV 09/05/16 16:30 (NS 250 ml Inj) 250 ml @ 500 mls/hr ONCE PRN IV 09/05/16 16:30 09/06/16 16:29 (Xylocaine 1% Inj (50 ml)) 10 ml UNSCH PRN INFIL 09/05/16 16:30 09/06/16 16:29 Vital Signs / I&O Vital Signs Date Time Temp Pulse Resp B/P Pulse Ox O2 Delivery O2 Flow Rate FiO2 09/05/16 14:00 86 09/05/16 13:00 84 09/05/16 12:00 80 09/05/16 12:00 97.8 80 18 148/94 97 09/05/16 11:00 76 09/05/16 10:00 72 09/05/16 09:00 86 09/05/16 08:00 84 09/05/16 08:00 98.5 90 18 149/96 96 09/05/16 07:00 82 09/05/16 06:00 77 09/05/16 05:00 84 09/05/16 04:00 82 09/05/16 03:00 98.5 84 12 150/86 97 09/05/16 03:00 76 09/05/16 02:00 78 09/05/16 01:00 78 09/05/16 00:00 80 09/04/16 23:00 97.9 81 16 138/91 94 09/04/16 23:00 82 09/04/16 22:00 86 09/04/16 21:00 158/84 09/04/16 21:00 98 09/04/16 20:00 98.1 94 16 170/102 97 09/04/16 20:00 92 09/04/16 19:00 86 I/O 09/04/16 09/04/16 09/04/16 09/05/16 09/05/16 09/05/16 07:00 15:00 23:00 07:00 15:00 23:00 Intake Total 200 ml 1420 ml 720 ml Output Total 300 ml 1150 ml 675 ml Balance -100 ml 270 ml 45 ml Intake Oral 200 ml 720 ml 720 ml IV Total 700 ml Output Urine Total 300 ml 1150 ml 675 ml # Bowel Movements 1 Physical Exam GENERAL: NAD, AAOx3 SKIN: Warm and dry. HEAD: Atraumatic. Normocephalic. EYES: Pupils equal and round. No scleral icterus. No injection or drainage. ENT: No nasal bleeding or discharge. Mucous membranes pink and moist. NECK: Trachea midline. No JVD. CARDIOVASCULAR: Regular rate and rhythm. RESPIRATORY: No accessory muscle use. Clear to auscultation. Breath sounds equal bilaterally. GASTROINTESTINAL: Abdomen soft, non-tender, nondistended. Hepatic and splenic margins not palpable. MUSCULOSKELETAL: Extremities without clubbing, cyanosis, or edema. No obvious deformities. Right radial no hematoma, neurovascularly intact distally. Right femoral sheath with small hematoma noted, soft. NEUROLOGICAL: Awake and alert. No obvious cranial nerve deficits. Motor grossly within normal limits. Five out of 5 muscle strength in the arms and legs. Normal speech. PSYCHIATRIC: Appropriate mood and affect; insight and judgment normal. Laboratory Laboratory Tests Test 09/04/16 09/05/16 21:00 05:32 Activated Partial 45.6 SEC 48.3 SEC Thromboplast Time White Blood Count 9.3 TH/MM3 Red Blood Count 4.79 MIL/MM3 Hemoglobin 13.4 GM/DL Hematocrit 40.3 % Mean Corpuscular Volume 84.2 FL Mean Corpuscular Hemoglobin 28.0 PG Mean Corpuscular Hemoglobin 33.3 % Concent Red Cell Distribution Width 13.8 % Platelet Count 258 TH/MM3 Mean Platelet Volume 8.9 FL Neutrophils (%) (Auto) 51.4 % Lymphocytes (%) (Auto) 36.0 % Monocytes (%) (Auto) 10.3 % Eosinophils (%) (Auto) 1.7 % Basophils (%) (Auto) 0.6 % Neutrophils # (Auto) 4.8 TH/MM3 Lymphocytes # (Auto) 3.3 TH/MM3 Monocytes # (Auto) 1.0 TH/MM3 Eosinophils # (Auto) 0.2 TH/MM3 Basophils # (Auto) 0.1 TH/MM3 CBC Comment DIFF FINAL Differential Comment Sodium Level 142 MEQ/L Potassium Level 3.5 MEQ/L Chloride Level 111 MEQ/L Carbon Dioxide Level 20.6 MEQ/L Anion Gap 10 MEQ/L Blood Urea Nitrogen 13 MG/DL Creatinine 0.85 MG/DL Estimat Glomerular Filtration 113 ML/MIN Rate Random Glucose 90 MG/DL Calcium Level 9.1 MG/DL Assessment and Plan Problem List: (1) Multi-vessel coronary artery stenosis (2) Chest pain (3) Hypertension (4) Anxiety disorder due to medical condition Assessment and Plan 1) Presenting with unstable angina, known MVCAD He refusedCABG 2) s/p PCI of LAD with YESENIA (2.75x14), PCI of OM with YESENIA (2.5x14) Con't ASA/Brilinta 3) s/p PCI of PDA with YESENIA (2.25x14) 4) HTN, will increase Norvasc to 10mg daily... now controlled 5) SOB due to Brilinta should be gone around 1 week 6) Sheath to be pulled today, expression of hematoma Harlan Isaac DO Sep 05, 2016 18:15
[2016-09-05] MEDS: ATORVASTATIN 40 MG TAB PO SCH (21:26)
[2016-09-06] VITALS (13 sets, daily range): BP systolic 118–156; BP diastolic 77–98; PULSE 72–92; RESP 14–18; TEMP 97.8–98.4; O2SAT 92–95
[2016-09-06] MEDS: NITROGLYCERIN 2% OINT 1 GM PACKET TOPICAL SCH (06:38)
[2016-09-06 07:03] LABS: AUTOMATED NEUTROPHIL # 5.3 TH/MM3 (1.8-7.7); BASOPHIL # 0.1 TH/MM3 (0-0.2); BASOPHIL % 0.6 % (0.0-2.0); EOSINOPHIL # 0.2 TH/MM3 (0-0.4); EOSINOPHIL % 1.8 % (0.0-4.0); HEMATOCRIT 40.1 % (39.0-51.0); HEMO FLAGS DIFF FINAL; MEAN CELL VOLUME 83.7 FL (80.0-100.0); MEAN CORPUSCULAR HEMOGLOBIN 28.2 PG (27.0-34.0); MEAN CORPUSCULAR HGB CONC 33.7 % (32.0-36.0); MONO % 10.7 % (0.0-8.0); NEUT % 55.9 % (16.0-70.0); PLATELET COUNT 274 TH/MM3 (150-450); RED BLOOD COUNT 4.79 MIL/MM3 (4.50-5.90); RED CELL DISTRIBUTION WIDTH 13.9 % (11.6-17.2); WHITE BLOOD COUNT 9.6 TH/MM3 (4.0-11.0)
[2016-09-06 07:23] LABS: APTT (PATIENT) 25.4 SEC (24.3-30.1); BICARBONATE 22.7 MEQ/L (21.0-32.0); POTASSIUM 3.7 MEQ/L (3.5-5.1)
--- NOTE | 2016-09-06 07:52 | HHI.PR ---
Subjective Remarks Follow up CAD and post PDA stenting. Patient seen and examined today. Denies any chest pain currently or overnight. Does states he still have significant tenderness to palpation to right groin site due to hematoma. Denies any recent fever, chills, cough, headache, lightheadedness or dizziness, shortness of breath, abdominal pain, n/vomiting, diarrhea. Tolerating PO intake. VSS. Afebrile. Objective Vitals Vital Signs Date Time Temp Pulse Resp B/P Pulse Ox O2 Delivery O2 Flow Rate FiO2 09/06/16 07:00 85 09/06/16 05:00 76 09/06/16 04:00 80 09/06/16 03:00 82 09/06/16 03:00 89 14 118/77 94 09/06/16 02:00 148/94 09/06/16 02:00 72 09/06/16 01:00 84 140/89 92 09/06/16 01:00 84 09/06/16 00:00 92 09/05/16 23:30 94 137/97 93 09/05/16 23:19 97.8 105 16 147/97 94 09/05/16 23:00 108 09/05/16 23:00 106 160/99 94 09/05/16 22:30 91 156/91 95 09/05/16 22:00 96 09/05/16 22:00 97 146/97 93 09/05/16 21:30 110 150/95 95 09/05/16 21:21 103 14 145/94 96 09/05/16 21:00 102 09/05/16 21:00 102 144/99 94 09/05/16 20:45 107 164/90 09/05/16 20:30 107 169/95 09/05/16 20:15 149/106 09/05/16 20:00 97.6 106 14 151/94 95 09/05/16 20:00 106 151/94 09/05/16 19:57 95 162/90 96 09/05/16 19:54 97 147/90 96 09/05/16 19:51 96 144/94 96 09/05/16 19:48 97 145/96 94 09/05/16 19:45 100 132/93 96 09/05/16 19:42 99 141/86 96 09/05/16 19:38 99 148/98 96 09/05/16 19:15 83 155/97 09/05/16 19:00 85 159/98 09/05/16 19:00 78 09/05/16 18:45 84 146/96 09/05/16 14:00 86 09/05/16 13:00 84 09/05/16 12:00 80 09/05/16 12:00 97.8 80 18 148/94 97 09/05/16 11:00 76 09/05/16 10:00 72 09/05/16 09:00 86 09/05/16 08:00 84 09/05/16 08:00 98.5 90 18 149/96 96 I/O 09/05/16 09/05/16 09/05/16 09/06/16 09/06/16 09/06/16 07:00 15:00 23:00 07:00 15:00 23:00 Intake Total 720 ml 1285 ml Output Total 675 ml 1150 ml Balance 45 ml 135 ml Intake Oral 720 ml 960 ml IV Total 325 ml Output Urine Total 675 ml 1150 ml # Bowel Movements 1 0 Result Diagram: 09/06/1618 09/06/1618 Objective Remarks GENERAL: Well-nourished, well-developed patient in NAD. SKIN: Warm and dry. No rash. Right groin dressing intact, clean, hematoma noted. Pain to palpation. HEAD: Normocephalic. Atraumatic. Pupils equal and round. No scleral icterus. No injection or drainage. No nasal bleeding or discharge. Mucous membranes pink and moist. NECK: Supple. Trachea midline. CARDIOVASCULAR: Regular rate and rhythm. S1, S2 noted. No murmur appreciated. RESPIRATORY: No accessory muscle use. Clear to auscultation. Breath sounds equal bilaterally. GASTROINTESTINAL: Abdomen soft, non-tender, nondistended. Normoactive bowel sounds x4. MUSCULOSKELETAL: No obvious deformities. Extremities without clubbing, cyanosis , or edema. NEUROLOGICAL: Awake and alert. No obvious cranial nerve deficits. Motor grossly within normal limits. 5/5 muscle strength in bilateral upper and lower extremities. Normal speech. PSYCHIATRIC: Appropriate mood and affect; insight and judgment normal. A/P Problem List: (1) Multi-vessel coronary artery stenosis ICD Code: I25.10 Status: Acute (2) Chest pain ICD Code: R07.9 Status: Acute (3) Hypertension ICD Code: I10 Status: Chronic (4) Anxiety disorder due to medical condition ICD Code: F06.4 Status: Acute Assessment and Plan Mr. Damon is a 56-year-old male with known multivessel coronary artery disease who was referred to the emergency department by his shock absorber installer, Dr. Bridges. The patient was hospitalized one week ago from presentation and cardiac catheterization showed significant multivessel coronary artery disease. Cardiothoracic surgery was consulted and recommended cabbage. This was scheduled for 08/27/16. The patient changed his mind and decided that he did not want to proceed with surgery. He left AGAINST MEDICAL ADVICE at that time. His shock absorber installer recommended that he return to the hospital. Unstable angina/multivessel disease - Patient declined CABG. - Status post cardiac catheterization with drug-eluting stent placement of the LAD/OM on 09/03/16. - Status post cardiac catheterization for PDA done 09/06/16 - Continue aspirin, metoprolol, atorvastatin, Brilinta and lisinopril. Hematoma secondary to cardiac catheterization - Patient expresses significant tenderness to palpation at site. Will order US leg for rigth groin to rule out possible pseudoaneurysm. Follow. Coronary artery disease Hypertension, chronic - Continue home medication. - Continue Norvasc. DVT Prophylaxis: Brilinta Discharge Planning Will hold discharge for now. Awaiting US r/o pseudoaneurysm. Cardiology to see patient. Fanny Posada Sep 06, 2016 07:52
[2016-09-06] MEDS: ASPIRIN 81 MG CHEW TAB CHEW SCH (08:56)
[2016-09-06] MEDS: TICAGRELOR 90 MG TAB PO SCH (08:56)
[2016-09-06] MEDS: METOPROLOL TARTRATE 25 MG TAB PO SCH (08:56)
[2016-09-06] MEDS: LISINOPRIL 20 MG TAB PO SCH (08:57)
[2016-09-06] MEDS: ACETAMINOPHEN 325 MG TAB PO PRN (09:00)
--- NOTE | 2016-09-06 11:00 | RADRPT ---
EXAM DATE/TIME: 09/06/2016 10:28 [facility] COMPARISON: No previous studies available for comparison. INDICATIONS : Right groin pain. MEDICAL HISTORY : CAD. Hypertension. SURGICAL HISTORY : Stent placement. Cardiac catheterization. Lower back surgery. Bilateral feet corrective surgery. ENCOUNTER: Initial ACUITY: 2 days PAIN SCORE: 3/10 LOCATION: Right groin. AREA EVALUATED: Right groin. FINDINGS: Mccurdy scale and color Doppler images of the right groin show no pseudoaneurysm or significant hematoma . CONCLUSION: Normal exam. Gigi Aaron Jr., MD on September 06, 2016 at 10:58 Board Certified Radiologist. This report was verified electronically.
--- NOTE | 2016-09-06 13:10 | HHI.DS ---
Discharge Summary Admission Date Sep 01, 2016 at 22:29 Admitting Diagnosis multi-vessel coronary artery stenosis (1) Multi-vessel coronary artery stenosis Diagnosis: Principal (2) Chest pain Diagnosis: Secondary (3) Hypertension Diagnosis: Principal (4) Anxiety disorder due to medical condition Diagnosis: Secondary Procedures Status post cardiac catheterization with drug-eluting stent placement of the LAD /OM on 09/03/16. Status post cardiac catheterization for PDA done 09/06/16 Brief History Mr. Damon is a 56-year-old male with known multivessel coronary artery disease who was referred to the emergency department by his hub inventory specialist, Dr. Bridges. The patient was hospitalized one week ago from presentation and cardiac catheterization showed significant multivessel coronary artery disease. Cardiothoracic surgery was consulted and recommended cabbage. This was scheduled for 08/27/16. The patient changed his mind and decided that he did not want to proceed with surgery. He left AGAINST MEDICAL ADVICE at that time. His hub inventory specialist recommended that he return to the hospital. Patient presented with unstable angina/multivessel disease who is status post cardiac catheterization with drug-eluting stent placement of the LAD/OM on 09/03/16 and status post cardiac catheterization for PDA done 09/06/16. His aspirin, metoprolol, atorvastatin, Brilinta and lisinopril were all continued. Patient developed a hematoma secondary to cardiac catheterization whom patient expressed pain and tenderness to site. An US of the leg on right groin to rule out a possible pseudoaneurysm was performed showing a normal examination. Dr. Isaac placed patient on Brilinta upon discharge. CBC/BMP: 09/06/16 0618 09/06/16 0618 Significant Findings Laboratory Tests Test 09/04/16 09/04/16 09/04/16 09/05/16 05:38 10:50 21:00 05:32 Activated Partial 32.8 SEC 40.0 SEC 45.6 SEC 48.3 SEC Thromboplast Time (24.3-30.1) (24.3-30.1) (24.3-30.1) (24.3-30.1) Monocytes (%) (Auto) 10.3 % 10.3 % (0.0-8.0) (0.0-8.0) Chloride Level 110 MEQ/L 111 MEQ/L (98-107) (98-107) Monocytes # (Auto) 1.0 TH/MM3 (0-0.9) Carbon Dioxide Level 20.6 MEQ/L (21.0-32.0) Test 09/06/16 06:18 Monocytes (%) (Auto) 10.7 % (0.0-8.0) Monocytes # (Auto) 1.0 TH/MM3 (0-0.9) Chloride Level 112 MEQ/L (98-107) Random Glucose 115 MG/DL (74-106) Imaging Last Impressions Lower Extremity Ultrasound 09/06/16 0000 Signed Impressions: Service Date/Time: August 10:28 - CONCLUSION: Normal exam. Gigi Aaron Jr., MD PE at Discharge Follow up CAD and post PDA stenting. Patient seen and examined today. Denies any chest pain currently or overnight. Does states he still have significant tenderness to palpation to right groin site due to hematoma. Denies any recent fever, chills, cough, headache, lightheadedness or dizziness, shortness of breath, abdominal pain, n/vomiting, diarrhea. Tolerating PO intake. VSS. Afebrile. GENERAL: Well-nourished, well-developed patient in NAD. SKIN: Warm and dry. No rash. Right groin dressing intact, clean, hematoma noted. Pain to palpation. HEAD: Normocephalic. Atraumatic. Pupils equal and round. No scleral icterus. No injection or drainage. No nasal bleeding or discharge. Mucous membranes pink and moist. NECK: Supple. Trachea midline. CARDIOVASCULAR: Regular rate and rhythm. S1, S2 noted. No murmur appreciated. RESPIRATORY: No accessory muscle use. Clear to auscultation. Breath sounds equal bilaterally. GASTROINTESTINAL: Abdomen soft, non-tender, nondistended. Normoactive bowel sounds x4. MUSCULOSKELETAL: No obvious deformities. Extremities without clubbing, cyanosis , or edema. NEUROLOGICAL: Awake and alert. No obvious cranial nerve deficits. Motor grossly within normal limits. 5/5 muscle strength in bilateral upper and lower extremities. Normal speech. PSYCHIATRIC: Appropriate mood and affect; insight and judgment normal. Pt Condition on Discharge: Stable Discharge Disposition: Discharge Home Discharge Instructions DIET: Follow Instructions for: Heart Healthy Diet Activities you can perform: Regular-No Restrictions Follow up Referrals: PCP Follow-up - 1 Week New Medications: Amlodipine (Norvasc) 10 Mg Tab 10 MG PO DAILY hypertension #30 Ref 0 TAB Ticagrelor (Brilinta) 90 Mg Tab 90 MG PO BID CAD #30 Ref 0 TAB Continued Medications: Aspirin DR (Aspirin EC) 81 Mg Tabdr 81 MG PO DAILY Blood Clot Prevention #90 Ref 0 TAB Atorvastatin (Lipitor) 40 Mg Tab 40 MG PO HS Cholesterol Management #30 Ref 0 TAB Lisinopril (Lisinopril) 20 Mg Tab 20 MG PO DAILY Blood Pressure Management #30 TAB Metoprolol Tartrate (Metoprolol Tartrate) 25 Mg Tab 25 MG PO Q12HR heart Days 30 TAB Discontinued Medications: Amlodipine (Norvasc) 5 Mg Tab 5 MG PO DAILY Blood Pressure Management #30 TAB Fanny Posada Sep 06, 2016 13:10
[2016-09-06] MEDS ORDERED: NORC5TAB PO (13:16)
[2016-09-06] MEDS ORDERED: NITR1SUB3 SL (14:13)
--- NOTE | 2016-09-06 17:23 | PD.CARD.PN ---
Subjective Subjective Remarks Patient seen this morning, no events overnight Mild tenderness right groin this morning No chest pain Objective Medications Current Medications Sodium Chloride (NS Flush) 2 ml UNSCH PRN IVF FLUSH AFTER USING IV ACCESS Last administered on 09/05/16 21:28; Start 09/01/16 at 21:15; Stop 09/06/16 at 14:21 ; Status DC Aspirin (Aspirin Chew) 81 mg ONCE ONCE CHEW Last administered on 09/01/16 21: 15; Start 09/01/16 at 21:15; Stop 09/01/16 at 21:16; Status DC Heparin Sodium (Porcine) (Heparin Inj) 4,000 units ONCE ONCE IV Last administered on 09/01/16 21:45; Start 09/01/16 at 21:45; Stop 09/01/16 at 21:46; Status DC Heparin Sodium (Porcine) (Heparin Inj) 5,000 units UNSCH PRN IV APTT LESS THAN 25; Start 09/02/16 at 03:45; Stop 09/06/16 at 14:21; Status DC Heparin Sodium (Porcine) 2500 units 2,500 units UNSCH PRN IV APTT 25 TO 39; Start 09/02/16 at 03:45; Stop 09/06/16 at 14:21; Status DC Heparin Sodium/ Dextrose (Heparin-D5W Inj) 250 ml @ 0 mls/hr TITRATE IV Last administered on 09/04/16 20:46; Start 09/01/16 at 21:45; Stop 09/06/16 at 14:21 ; Status DC Nitroglycerin (Nitroglycerin 2% Oint) 1 inch ONCE ONCE TOPICAL Last administered on 09/01/16 21:45; Start 09/01/16 at 21:45; Stop 09/01/16 at 22:01; Status DC Acetaminophen (Tylenol) 650 mg Q4H PRN PO TEMP > 100.4 Last administered on 08:25; Start 09/01/16 at 22:30; Stop 09/06/16 at 14:21; Status DC Ondansetron HCl (Zofran Inj) 4 mg Q6H PRN IVP NAUSEA OR VOMITING; Start at 22:30; Stop 09/06/16 at 14:21; Status DC Acetaminophen (Tylenol) 650 mg Q6H PRN PO PAIN SCALE 1 TO 2 Last administered on 09/06/16 09:00; Start 09/01/16 at 22:30; Stop 09/06/16 at 14:21; Status DC Morphine Sulfate (Morphine Inj) 2 mg Q3H PRN IV PUSH Pain 3-5; if unable to take PO Last administered on 09/05/16 23:21; Start 09/01/16 at 22:30; Stop 09/06 at 14:21; Status DC Morphine Sulfate (Morphine Inj) 4 mg Q3H PRN IV PUSH Pain 6-10;if unable to take PO; Start 09/01/16 at 22:30; Stop 09/06/16 at 14:21; Status DC Naloxone HCl (Narcan Inj) 0.4 mg UNSCH PRN IV SEE LABEL COMMENTS; Start at 22:30; Stop 09/06/16 at 14:21; Status DC Magnesium Hydroxide (Milk Of Magnesia Liq) 30 ml Q12H PRN PO MILD - MODERATE CONSTIPATION; Start 09/01/16 at 22:30; Stop 09/06/16 at 14:21; Status DC Sennosides (Senokot) 17.2 mg Q12H PRN PO MODERATE - SEVERE CONSTIPATION; Start 09/01/16 at 22:30; Stop 09/06/16 at 14:21; Status DC Bisacodyl (Dulcolax Supp) 10 mg DAILY PRN RECTAL SEVERE CONSITIPATION; Start at 22:30; Stop 09/06/16 at 14:21; Status DC Lactulose (Lactulose Liq) 30 ml DAILY PRN PO SEVERE CONSITIPATION; Start at 22:30; Stop 09/06/16 at 14:22; Status DC Amlodipine Besylate (Norvasc) 5 mg DAILY PO Last administered on 09/03/16 08: 27; Start 09/02/16 at 09:00; Stop 09/03/16 at 17:23; Status DC Aspirin (Ecotrin Ec) 81 mg DAILY PO ; Start 09/02/16 at 09:00; Stop 09/02/16 at 09 :00; Status DC Atorvastatin Calcium (Lipitor) 40 mg HS PO Last administered on 09/05/16 21:26 ; Start 09/02/16 at 21:00; Stop 09/06/16 at 14:22; Status DC Lisinopril (Prinivil) 20 mg DAILY PO Last administered on 09/06/16 08:57; Start 09/02/16 at 09:00; Stop 09/06/16 at 14:22; Status DC Metoprolol Tartrate (Lopressor) 25 mg Q12HR PO Last administered on 09/06/16 08:56; Start 09/02/16 at 09:00; Stop 09/06/16 at 14:22; Status DC Nitroglycerin (Nitroglycerin 2% Oint) 0.5 inch Q8HR TOPICAL Last administered on 09/06/16 06:38; Start 09/02/16 at 06:00; Stop 09/06/16 at 14:22; Status DC Aspirin (Ecotrin Ec) 325 mg DAILY PO Last administered on 09/02/16 08:59; Start 09/02/16 at 09:00; Stop 09/02/16 at 14:39; Status DC Ticagrelor (Brilinta) 180 mg ONCE ONCE PO Last administered on 09/02/16 15:17 ; Start 09/02/16 at 14:45; Stop 09/02/16 at 14:46; Status DC Ticagrelor (Brilinta) 90 mg BID PO Last administered on 09/06/16 08:56; Start 09/02/16 at 21:00; Stop 09/06/16 at 14:22; Status DC Aspirin (Aspirin Chew) 81 mg DAILY CHEW Last administered on 09/06/16 08:56; Start 09/03/16 at 09:00; Stop 09/06/16 at 14:22; Status DC Alprazolam 0.25 mg 0.25 mg Q8H PRN PO anxiety Last administered on 09/05/16 23 :22; Start 09/02/16 at 20:00; Stop 09/06/16 at 14:22; Status DC Heparin Sodium/ Sodium Chloride (Heparin-NS/Pf Inj) 500 ml @ As Directed STK- MED ONCE .ROUTE Last administered on 09/03/16 13:26; Start 09/03/16 at 13:26; Stop 09/03/16 at 13:27; Status DC Midazolam HCl (Versed Inj) 2 mg STK-MED ONCE .ROUTE Last administered on 14:08; Start 09/03/16 at 13:27; Stop 09/03/16 at 13:28; Status DC Fentanyl Citrate (fentaNYL INJ) 100 mcg STK-MED ONCE .ROUTE Last administered on 09/03/16 14:08; Start 09/03/16 at 13:27; Stop 09/03/16 at 13:28; Status DC Verapamil HCl (Isoptin Inj) 5 mg STK-MED ONCE .ROUTE Last administered on 14:09; Start 09/03/16 at 13:27; Stop 09/03/16 at 13:28; Status DC Heparin Sodium (Porcine) 93364 units 10,000 units STK-MED ONCE .ROUTE Last administered on 09/03/16 14:09; Start 09/03/16 at 13:27; Stop 09/03/16 at 13:28 ; Status DC Nitroglycerin 5 ml @ As Directed STK-MED ONCE .ROUTE Last administered on 14:54; Start 09/03/16 at 13:27; Stop 09/03/16 at 13:28; Status DC Heparin Sodium/ Sodium Chloride 500 ml @ As Directed STK-MED ONCE .ROUTE Last administered on 09/03/16 14:31; Start 09/03/16 at 14:31; Stop 09/03/16 at 14:32 ; Status DC Sodium Chloride (NS 1000 ml Inj) 1,000 ml @ 60 mls/hr [id number] IV Last administered on 09/03/16 16:57; Start 09/03/16 at 15:30; Stop 09/04/16 at 03:29 ; Status DC Acetaminophen (Tylenol) 325 mg Q4H PRN PO PAIN SCALE 1 TO 2; Start 09/03/16 at 15:30; Stop 09/03/16 at 15:42; Status DC Oxycodone/ Acetaminophen (Percocet 5-325 Mg) 1 tab Q4H PRN PO PAIN SCALE 3 TO 5; Start 09/03/16 at 15:30; Stop 09/03/16 at 15:42; Status DC Oxycodone/ Acetaminophen (Percocet 10-325 Mg) 1 tab Q4H PRN PO PAIN SCALE 6 TO 10; Start 09/03/16 at 15:30; Stop 09/03/16 at 15:42; Status DC Morphine Sulfate (Morphine Inj) 2 mg Q30M PRN IV PUSH BREAKTHROUGH PAIN; Start 09/03/16 at 15:30; Stop 09/03/16 at 15:42; Status DC Oxycodone/ Acetaminophen (Percocet 5-325 Mg) 1 tab ONCE ONCE PO Last administered on 09/03/16 16:57; Start 09/03/16 at 16:00; Stop 09/03/16 at 16:44 ; Status DC Amlodipine Besylate (Norvasc) 5 mg ONCE ONCE PO Last administered on 17:30; Start 09/03/16 at 17:30; Stop 09/03/16 at 17:31; Status DC Amlodipine Besylate (Norvasc) 10 mg DAILY PO Last administered on 09/06/16 08: 56; Start 09/04/16 at 09:00; Stop 09/06/16 at 14:22; Status DC Iohexol (OMNIPAQUE 350 INJ (Field Marketing Coordinator)) 100 ml STK-MED ONCE OTHER ; Start at 13:37; Stop 09/04/16 at 10:00; Status DC Iohexol 50 ml 50 ml STK-MED ONCE OTHER ; Start 09/03/16 at 13:37; Stop 09/04/16 at 10:00; Status DC Heparin Sodium/ Sodium Chloride 500 ml @ As Directed STK-MED ONCE .ROUTE ; Start 09/05/16 at 14:53; Stop 09/05/16 at 14:54; Status DC Heparin Sodium/ Sodium Chloride (Heparin-NS/Pf Inj) 500 ml @ As Directed STK- MED ONCE .ROUTE ; Start 09/05/16 at 14:59; Stop 09/05/16 at 15:00; Status DC Midazolam HCl (Versed Inj) 2 mg STK-MED ONCE .ROUTE ; Start 09/05/16 at 15:05; Stop 09/05/16 at 15:06; Status DC Fentanyl Citrate (fentaNYL INJ) 100 mcg STK-MED ONCE .ROUTE ; Start 09/05/16 at 15:05; Stop 09/05/16 at 15:06; Status DC Heparin Sodium (Porcine) (Heparin Inj) 10,000 units STK-MED ONCE .ROUTE ; Start 09/05/16 at 15:24; Stop 09/05/16 at 15:25; Status DC Miscellaneous Information 1 ONCE ONCE XX ; Start 09/05/16 at 16:30; Stop at 17:06; Status DC Lorazepam (Ativan Inj) 0.5 mg UNSCH PRN IV ANXIETY Last administered on t 17:53; Start 09/05/16 at 16:30; Stop 09/06/16 at 14:22; Status DC Atropine Sulfate 0.5 mg 0.5 mg UNSCH PRN IV VAGAL REPONSE; Start 09/05/16 at 16 :30; Stop 09/06/16 at 14:22; Status DC Sodium Chloride (NS 250 ml Inj) 250 ml @ 500 mls/hr ONCE PRN IV VAGAL REPONSE ; Start 09/05/16 at 16:30; Stop 09/06/16 at 14:22; Status DC Lidocaine HCl (Xylocaine 1% Inj (50 ml)) 10 ml UNSCH PRN INFIL SHEATH REMOVAL; Start 09/05/16 at 16:30; Stop 09/06/16 at 14:22; Status DC Morphine Sulfate (Morphine Inj) 4 mg ONCE ONCE IV PUSH Last administered on t 16:30; Start 09/05/16 at 16:30; Stop 09/05/16 at 17:06; Status DC Iohexol (OMNIPAQUE 350 INJ (Field Marketing Coordinator)) 100 ml STK-MED ONCE OTHER ; Start at 14:13; Stop 09/06/16 at 15:27; Status DC Vital Signs / I&O Vital Signs Date Time Temp Pulse Resp B/P Pulse Ox O2 Delivery O2 Flow Rate FiO2 09/06/16 13:03 90 09/06/16 12:00 87 09/06/16 11:00 97.8 79 18 144/98 95 09/06/16 11:00 80 09/06/16 10:13 20 09/06/16 10:00 90 09/06/16 09:00 92 09/06/16 08:00 78 09/06/16 07:00 98.4 92 18 156/95 92 09/06/16 07:00 85 09/06/16 05:00 76 09/06/16 04:00 80 09/06/16 03:00 82 09/06/16 03:00 89 14 118/77 94 09/06/16 02:00 148/94 09/06/16 02:00 72 09/06/16 01:00 84 140/89 92 09/06/16 01:00 84 09/06/16 00:00 92 09/05/16 23:30 94 137/97 93 09/05/16 23:19 97.8 105 16 147/97 94 09/05/16 23:00 108 09/05/16 23:00 106 160/99 94 09/05/16 22:30 91 156/91 95 09/05/16 22:00 96 09/05/16 22:00 97 146/97 93 09/05/16 21:30 110 150/95 95 09/05/16 21:21 103 14 145/94 96 09/05/16 21:00 102 09/05/16 21:00 102 144/99 94 09/05/16 20:45 107 164/90 09/05/16 20:30 107 169/95 09/05/16 20:15 149/106 09/05/16 20:00 97.6 106 14 151/94 95 09/05/16 20:00 106 151/94 09/05/16 19:57 95 162/90 96 09/05/16 19:54 97 147/90 96 09/05/16 19:51 96 144/94 96 09/05/16 19:48 97 145/96 94 09/05/16 19:45 100 132/93 96 09/05/16 19:42 99 141/86 96 09/05/16 19:38 99 148/98 96 09/05/16 19:15 83 155/97 09/05/16 19:00 85 159/98 09/05/16 19:00 78 09/05/16 18:45 84 146/96 I/O 09/05/16 09/05/16 09/05/16 09/06/16 09/06/16 09/06/16 07:00 15:00 23:00 07:00 15:00 23:00 Intake Total 720 ml 1285 ml Output Total 675 ml 1150 ml Balance 45 ml 135 ml Intake Oral 720 ml 960 ml IV Total 325 ml Output Urine Total 675 ml 1150 ml # Bowel Movements 1 0 Physical Exam GENERAL: NAD, AAOx3 SKIN: Warm and dry. HEAD: Atraumatic. Normocephalic. EYES: Pupils equal and round. No scleral icterus. No injection or drainage. ENT: No nasal bleeding or discharge. Mucous membranes pink and moist. NECK: Trachea midline. No JVD. CARDIOVASCULAR: Regular rate and rhythm. RESPIRATORY: No accessory muscle use. Clear to auscultation. Breath sounds equal bilaterally. GASTROINTESTINAL: Abdomen soft, non-tender, nondistended. Hepatic and splenic margins not palpable. MUSCULOSKELETAL: Extremities without clubbing, cyanosis, or edema. No obvious deformities. Right radial no hematoma, neurovascularly intact distally. Right groin, no hematoma, soft, mildly tender NEUROLOGICAL: Awake and alert. No obvious cranial nerve deficits. Motor grossly within normal limits. Five out of 5 muscle strength in the arms and legs. Normal speech. PSYCHIATRIC: Appropriate mood and affect; insight and judgment normal. Laboratory Laboratory Tests Test 09/06/16 06:18 White Blood Count 9.6 TH/MM3 Red Blood Count 4.79 MIL/MM3 Hemoglobin 13.5 GM/DL Hematocrit 40.1 % Mean Corpuscular Volume 83.7 FL Mean Corpuscular Hemoglobin 28.2 PG Mean Corpuscular Hemoglobin 33.7 % Concent Red Cell Distribution Width 13.9 % Platelet Count 274 TH/MM3 Mean Platelet Volume 8.9 FL Neutrophils (%) (Auto) 55.9 % Lymphocytes (%) (Auto) 31.0 % Monocytes (%) (Auto) 10.7 % Eosinophils (%) (Auto) 1.8 % Basophils (%) (Auto) 0.6 % Neutrophils # (Auto) 5.3 TH/MM3 Lymphocytes # (Auto) 3.0 TH/MM3 Monocytes # (Auto) 1.0 TH/MM3 Eosinophils # (Auto) 0.2 TH/MM3 Basophils # (Auto) 0.1 TH/MM3 CBC Comment DIFF FINAL Differential Comment Activated Partial 25.4 SEC Thromboplast Time Sodium Level 142 MEQ/L Potassium Level 3.7 MEQ/L Chloride Level 112 MEQ/L Carbon Dioxide Level 22.7 MEQ/L Anion Gap 7 MEQ/L Blood Urea Nitrogen 13 MG/DL Creatinine 0.94 MG/DL Estimat Glomerular Filtration 101 ML/MIN Rate Random Glucose 115 MG/DL Calcium Level 9.0 MG/DL Assessment and Plan Problem List: (1) Multi-vessel coronary artery stenosis (2) Chest pain (3) Hypertension (4) Anxiety disorder due to medical condition Assessment and Plan 1) Presenting with unstable angina, known MVCAD He refusedCABG 2) s/p PCI of LAD with YESENIA (2.75x14), PCI of OM with YESENIA (2.5x14) Con't ASA/Brilinta 3) s/p PCI of PDA with YESENIA (2.25x14) 4) HTN, will increase Norvasc to 10mg daily... now controlled 5) SOB due to Brilinta should be gone around 1 week 6) Mild groin tenderness, no hematoma/PSA on ultrasound 7) Cardiovascularly stable for discharge, follow up with me in 2-4 weeks Harlan Isaac DO Sep 06, 2016 17:23
--- NOTE | 2016-09-06 23:44 | MA ---
cc: BETINA AMBRIZ DO DATE September 05, 2016 PROCEDURE Coronary angiogram, Resolute drug-eluting stent (2.25 x 14) to PDA, moderate sedation 60 minutes. PREPROCEDURE DIAGNOSIS Multivessel coronary artery disease refusing CABG, plan PCI of RCA for complete revascularization, unstable angina on multiple medications. POSTPROCEDURE DIAGNOSIS Coronary artery disease status post Resolute drug-eluting stent (2.25 x 14) to PDA. MEDICATIONS 1. Versed 1 milligrams. 2. Fentanyl 100 micrograms. 3. Heparin 8600 units. 4. Nitroglycerin 200 micrograms intracoronary. CONTRAST 85 cc. FLUOROSCOPY 11.2 minutes. SEDATION Moderate sedation 60 minutes. ESTIMATED BLOOD LOSS 20 cc. PROCEDURAL SUMMARY Mauri Damon is a pleasant 56-year-old male who presented with unstable angina, multivessel disease. He was offered coronary artery bypass grafting but refused. He underwent previous intervention of his LAD and circumflex and comes back today for intervention of his PDA for complete revascularization. Risks, benefits and alternatives were explained to him and he consents as such. He was brought to the lab and prepped in the usual sterile fashion. Right femoral artery was accessed using a modified Seldinger technique with a micropuncture needle and placement of a 6-Occitan sheath. Angiogram of the right femoral artery shows mild disease in the lower common femoral but no other significant disease. An AL 0.75 guide was then advanced over a J-wire to the ascending aorta and to engage the RCA. It was felt that due to the tortuosity of the RCA and distal nature of the lesion that overall being a more complex procedure better guide support was needed with the AL guide. A BMW wire was preloaded in an abfx-wzp-tzed balloon (1.25 x 15) and the BMW wire was advanced distal to the lesion. Afterwards the [id number]-zka-[id number] balloon was then advanced distal to the lesion and a BMW wire was exchanged for a [place] wire. The over the wire balloon (1.25 x 15) was then pulled back to the lesion and inflated. The [id number]-[id number] balloon was then exchanged for a compliant balloon (2 x 12) which was inflated over the lesion. A Resolute drug-eluting stent (2.25 x 14) was then placed over the lesion and inflated to nominal pressure. During the angiogram, there was notable pseudolesions but also thought to be some spasm and so nitroglycerin 200 micrograms intracoronary was given. A noncompliant balloon (2.25 x 12) was then placed within the parameters of the stent and inflated at high pressure. Post angioplasty shots show a well opposed stent with no perforations or dissections noted. Grandslam wire was removed. Once the Grandslam wire was removed there no longer was noted any lesions correlating with pseudolesions previously. The AL guide was then removed over a J-wire. The patient was noted to have a small hematoma around the outside of the sheath which was soft in nature. The patient left the labor relations consultant cardiovascularly stable. FINDINGS RCA mildly tortuous vessel with mild luminal irregularities. PDA with a 90% lesion status post Resolute drug-eluting stent (2.25 x 12). IMPRESSION 1. Multivessel coronary artery disease refusing CABG status post complete revascularization. 2. Unstable angina on multiple medications. RECOMMENDATIONS 1. Mauri Damon underwent complete revascularization due to his unstable angina on multiple antianginal medications. 2. He will be placed on aspirin and __. He has been on aspirin and Brilinta and will continue this. I explained to him that he needs to check with his pharmacy to make sure refills are not too expensive and if they are he will call the office to be changed to Plavix after 3 months of Brilinta. 3. He will be watched overnight and if stable in the morning discharge for followup in the office with me in 2-4 weeks. 4. He did have a small hematoma and this will be watched and most likely expressed after sheath is pulled. Thank you for allowing me to see Mauri Damon. If you have any questions please do not hesitate to call. Betina Ambriz DO VGP/EO /10:45 PM /11:35 PM
--- NOTE | 2016-09-07 17:20 | HHI.DS ---
Discharge Summary Admission Date Sep 01, 2016 at 22:29 Discharge Date: Sep 07, 2016 Admitting Diagnosis multi-vessel coronary artery stenosis (1) Multi-vessel coronary artery stenosis ICD Code: I25.10 Diagnosis: Principal (2) Chest pain ICD Code: R07.9 Diagnosis: Secondary (3) Hypertension ICD Code: I10 Diagnosis: Principal (4) Anxiety disorder due to medical condition ICD Code: F06.4 Diagnosis: Secondary Procedures Cardiac catheterization Brief History - From Admission The patient is a 56-year-old male with known multivessel coronary artery disease who was referred to the emergency department by his prosthetic assistant, Dr. Bridges. The patient was hospitalized one week ago and cardiac catheterization showed significant multivessel coronary artery disease. Cardiothoracic surgery was consulted and recommended cabbage. This was scheduled for 08/27/16. The patient changed his mind and decided that he did not want to proceed with surgery. He left AGAINST MEDICAL ADVICE at that time. His prosthetic assistant contacted him today and recommended that he return to the hospital. The ER nurse practitioner spoke with Dr. Higgins and Dr. Isaac, who are covering for Dr. Bridges. Dr. Isaac will see the patient tomorrow to discuss repeat catheter with stent placement versus cabbage. The patient is still having chest tightness intermittently. Denies dyspnea. CBC/BMP: 09/06/16 0618 09/06/16 0618 Significant Findings Laboratory Tests Test 09/04/16 09/05/16 09/06/16 21:00 05:32 06:18 Activated Partial 45.6 SEC 48.3 SEC Thromboplast Time (24.3-30.1) (24.3-30.1) Monocytes (%) (Auto) 10.3 % 10.7 % (0.0-8.0) (0.0-8.0) Monocytes # (Auto) 1.0 TH/MM3 1.0 TH/MM3 (0-0.9) (0-0.9) Chloride Level 111 MEQ/L 112 MEQ/L (98-107) (98-107) Carbon Dioxide Level 20.6 MEQ/L (21.0-32.0) Random Glucose 115 MG/DL (74-106) PE at Discharge GENERAL: Well-nourished, well-developed patient in NAD. SKIN: Warm and dry. No rash. Right groin dressing intact, clean, hematoma noted. Pain to palpation. HEAD: Normocephalic. Atraumatic. Pupils equal and round. No scleral icterus. No injection or drainage. No nasal bleeding or discharge. Mucous membranes pink and moist. NECK: Supple. Trachea midline. CARDIOVASCULAR: Regular rate and rhythm. S1, S2 noted. No murmur appreciated. RESPIRATORY: No accessory muscle use. Clear to auscultation. Breath sounds equal bilaterally. GASTROINTESTINAL: Abdomen soft, non-tender, nondistended. Normoactive bowel sounds x4. MUSCULOSKELETAL: No obvious deformities. Extremities without clubbing, cyanosis , or edema. NEUROLOGICAL: Awake and alert. No obvious cranial nerve deficits. Motor grossly within normal limits. 5/5 muscle strength in bilateral upper and lower extremities. Normal speech. PSYCHIATRIC: Appropriate mood and affect; insight and judgment normal. Hospital Course Mr. Damon is a 56-year-old male with known multivessel coronary artery disease who was referred to the emergency department by his prosthetic assistant, Dr. Bridges. The patient was hospitalized one week ago from presentation and cardiac catheterization showed significant multivessel coronary artery disease. Cardiothoracic surgery was consulted and recommended cabbage. This was scheduled for 08/27/16. The patient changed his mind and decided that he did not want to proceed with surgery. He left AGAINST MEDICAL ADVICE at that time. His prosthetic assistant recommended that he returns to the hospital. During this hospitalization, patient went for cardiac catheterization with drug-eluting stent placement of the LAD/OM on 09/03/16 and cardiac catheterization for PDA done 09/06/16. He will continue aspirin, metoprolol, atorvastatin, Brilinta and lisinopril. He had a hematoma secondary to cardiac catheterization, US ruled out pseudoaneursym and patient cleared for discharge by cardiology. He will go home on brilinta Pt Condition on Discharge: Stable Discharge Disposition: Discharge Home Discharge Time: > 30 minutes Discharge Instructions DIET: Follow Instructions for: Heart Healthy Diet Activities you can perform: Regular-No Restrictions New Medications: Hydrocodone-Acetaminophen ([place]) 5-325 mg Tab 1 TAB PO Q6H PRN PAIN #15 Ref 0 TAB Nitroglycerin SL (Nitroglycerin SL) 0.4 Mg Subl 0.4 MG SL DIRECTED ONE TABLET UNDER THE TONGUE NEEDED FOR CHEST PAIN, MAY REPEAT EVERY FIVE MINUTES FOR A TOTAL OF 3 DOSES OR CALL 911 IF NO RELIEF PRN CHEST PAIN #100 Ref 0 TAB.SL Amlodipine (Norvasc) 10 Mg Tab 10 MG PO DAILY hypertension #30 Ref 0 TAB Ticagrelor (Brilinta) 90 Mg Tab 90 MG PO BID CAD #30 Ref 0 TAB Continued Medications: Aspirin DR (Aspirin EC) 81 Mg Tabdr 81 MG PO DAILY Blood Clot Prevention #90 Ref 0 TAB Atorvastatin (Lipitor) 40 Mg Tab 40 MG PO HS Cholesterol Management #30 Ref 0 TAB Lisinopril (Lisinopril) 20 Mg Tab 20 MG PO DAILY Blood Pressure Management #30 TAB Metoprolol Tartrate (Metoprolol Tartrate) 25 Mg Tab 25 MG PO Q12HR heart Days 30 TAB Discontinued Medications: Amlodipine (Norvasc) 5 Mg Tab 5 MG PO DAILY Blood Pressure Management #30 TAB Btety Mccray MD Sep 07, 2016 17:20
== END 2016-09-06 14:14 | disposition home or self-care (01) | DRG 247 ==
LOC: NEPC 20:48 → NEDA 22:29 → HCIS 23:49
PROVIDERS: ADMIT Hospitalist; ATTEND Hospitalist
PROC: B2111ZZ Fluoroscopy of Multiple Coronary Arteries using Low Osmolar Contrast (ICD-10-PCS; 2016-09-03)
PROC: 027135Z Dilation of Coronary Artery, Two Arteries with Two Drug-eluting Intraluminal Devices, Percutaneous Approach (ICD-10-PCS; principal; 2016-09-03 12:15)
PROC: 027034Z Dilation of Coronary Artery, One Artery with Drug-eluting Intraluminal Device, Percutaneous Approach (ICD-10-PCS; 2016-09-05)
DX: I25.110 Atherosclerotic heart disease of native coronary artery with unstable angina pectoris (principal); I10 Essential (primary) hypertension; F06.4 Anxiety disorder due to known physiological condition; Z87.891 Personal history of nicotine dependence; Z82.49 Family history of ischemic heart disease and other diseases of the circulatory system
CPT/HCPCS: 76937; 80048; 82550; 82552; 83735; 84484; 85002; 85025; 85610; 85730; 92928; 92929; 93005; 93454; 93926; 96365; 96375; C1725; C1769; C1874; C1887; C1893; J1644; J2060; J2250; J2270; J3010; J7030; Q9967

== ENCOUNTER 2016-09-11 12:23 | Emergency (ER) | payer OTHER ==
[~2016-09-11] VITALS: Ht 175.3 cm; Wt 96.2 kg
[~2016-09-11 12:23] MED LIST changes: +AMLO10 PO; -AMLO5 PO; +BRIL90TA PO; +NITR1SUB3 SL; +NORC5TAB PO
[2016-09-11 12:37] VITALS: BP 112/82; PULSE 94; RESP 16; TEMP 98.1; O2SAT 96
--- NOTE | 2016-09-11 14:15 | PD ---
HPI Chief Complaint: Lump, Cyst, Hernia Time Seen by Provider: 13:47 Travel History International Travel<30 days: No Contact w/Intl Traveler<30days: No Traveled to known affect area: No History of Present Illness HPI Patient 56-year-old male presents emergency department for right groin swelling. Patient states he recently had a catheterization by Dr. Isaac and was otherwise come the emergency department for evaluation. Patient states he noticed swelling which was not really painful. States is concerned because he has a vacation scheduled for [place] coming up tomorrow. Denies any shortness of breath extremity weakness. PFSH Past Medical History Hx Anticoagulant Therapy: Yes Arthritis: No Asthma: No Autoimmune Disease: No Anxiety: No Depression: No Heart Rhythm Problems: No Cancer: No Cardiac Catheterization: Yes Cardiovascular Problems: Yes (htn on meds, x 3 stents placed 3 weeks ago) High Cholesterol: Yes Chemotherapy: No Chest Pain: Yes Congestive Heart Failure: No COPD: No Cerebrovascular Accident: No Diabetes: No Diminished Hearing: No Endocrine: No GERD: No Genitourinary: No Hepatitis: No Hiatal Hernia: No Hypertension: Yes Immune Disorder: No Kidney Stones: No Musculoskeletal: No Neurologic: No Psychiatric: No Reproductive: No Respiratory: No Migraines: No Radiation Therapy: No Renal Failure: No Seizures: No Sickle Cell Disease: No Sleep Apnea: No Thyroid Disease: No Ulcer: No Past Surgical History Abdominal Surgery: No AICD: No Arteriovenous Shunt: No Cardiac Surgery: No Coronary Artery Bypass Graft: No Coronary Stent: Yes (x's 3 08/2016) Ear Surgery: No Endocrine Surgery: No Eye Surgery: No Genitourinary Surgery: No Gynecologic Surgery: No Insulin Pump: No Joint Replacement: No Oral Surgery: No Pacemaker: No Thoracic Surgery: Yes (lower back surgery 1989) Other Surgery: Yes Social History Alcohol Use: No Tobacco Use: No Substance Use: No Allergies-Medications (Allergen,Severity, Reaction): Coded Allergies: No Known Allergies (Verified , 09/11/16) Reported Meds & Prescriptions Reported Meds & Active Scripts Active Nitroglycerin SL (Nitroglycerin) 0.4 Mg Subl 0.4 Mg SL DIRECTED PRN ONE TABLET UNDER THE TONGUE NEEDED FOR CHEST PAIN, MAY REPEAT EVERY FIVE MINUTES FOR A TOTAL OF 3 DOSES OR CALL 911 IF NO RELIEF [place] (Hydrocodone-Acetaminophen) 5-325 mg Tab 1 Tab PO Q6H PRN Brilinta (Ticagrelor) 90 Mg Tab 90 Mg PO BID Norvasc (Amlodipine Besylate) 10 Mg Tab 10 Mg PO DAILY Metoprolol Tartrate 25 Mg Tab 25 Mg PO Q12HR 30 Days Lipitor (Atorvastatin Calcium) 40 Mg Tab 40 Mg PO HS Aspirin EC (Aspirin) 81 Mg Tabdr 81 Mg PO DAILY Lisinopril 20 Mg Tab 20 Mg PO DAILY Review of Systems Except as stated in HPI: all other systems reviewed are Neg Physical Exam Narrative GENERAL: Well-nourished, well-developed patient. SKIN: Appropriate bruising in the right groin after catheterization. Is a small swelling proximally marble-sized overlying the right inguinal ligament. It is non-pulsatile mass. Does not enlarged with forced coughing and bearing down. HEAD: Normocephalic. Atraumatic EYES: No scleral icterus. No injection or drainage. NECK: Supple, trachea midline. No JVD or lymphadenopathy. CARDIOVASCULAR: Regular rate and rhythm without murmurs, gallops, or rubs. RESPIRATORY: Breath sounds equal bilaterally. No accessory muscle use. GASTROINTESTINAL: Abdomen soft, non-tender, nondistended. MUSCULOSKELETAL: No cyanosis, or edema. BACK: Nontender without obvious deformity. No CVA tenderness. Data Data Last Documented VS Vital Signs Date Time Temp Pulse Resp B/P Pulse Ox O2 Delivery O2 Flow Rate FiO2 09/11/16 12:37 98.1 94 16 112/82 96 Orders Us Leg Hematoma/Pseudoaneurysm (09/11/16 13:56) MDM Medical Decision Making Medical Screen Exam Complete: Yes Emergency Medical Condition: Yes Differential Diagnosis Pseudoaneurysm, aneurysm, hematoma, inguinal hernia unlikely, DVT highly unlikely. Narrative Course Patient roomed emergency department, quite pleasant, findings consistent with hematoma after arterial catheterization. Ultrasound shows no evidence of pseudoaneurysm. He stable for discharge, discussed with him follow-up with Dr. Isaac as scheduled. Discussed with him no excessive exertion while on vacation. He is stable for discharge. Was offered pain medicine and declined. Diagnosis Primary Impression: Groin hematoma Disposition: 01 DISCHARGE HOME Condition: Stable Joao Villarreal MD Sep 11, 2016 14:15
--- NOTE | 2016-09-11 15:46 | RADRPT ---
EXAM DATE/TIME: 09/11/2016 14:11 [facility] COMPARISON: No previous studies available for comparison. INDICATIONS : Right groin pain and bruising. Post cardiac catheterization 09/05/16. MEDICAL HISTORY : Heart disease. Hypertension. SURGICAL HISTORY : Cardiac catheterization. ENCOUNTER: Initial ACUITY: 1 week PAIN SCORE: 6/10 LOCATION: Right groin. AREA EVALUATED: Right groin. FINDINGS: Target sonogram in the right groin reveals no abnormal fluid collection. No hematoma. No pseudoaneury sm. Right common femoral artery and vein appear normal. CONCLUSION: 1. No pseudoaneurysm. Eduardo Florez MD on September 11, 2016 at 15:33 Board Certified Radiologist. This report was verified electronically.
== END 2016-09-11 16:17 | disposition home or self-care (01) ==
LOC: PHED 12:23 → PHEFT 16:17
DX: N99.841 Postprocedural hematoma of a genitourinary system organ or structure following other procedure (principal); I10 Essential (primary) hypertension; Z95.5 Presence of coronary angioplasty implant and graft; Z79.01 Long term (current) use of anticoagulants
CPT/HCPCS: 93926

== ENCOUNTER 2016-11-22 07:39 | Day surgery (SDC) | payer OTHER ==
[2016-11-22] VITALS (9 sets, daily range): BP systolic 123–160; BP diastolic 70–99; PULSE 69–95; RESP 12–20; TEMP 97.4–97.9; O2SAT 94–98
[~2016-11-22] VITALS: Ht 177.8 cm; Wt 95.8 kg
[2016-11-22] MEDS ORDERED: IOHEXOL 350 MG/ML 100 ML BTL (for Cath Lab) OTHER ONE (07:40)
[2016-11-22] MEDS ORDERED: NS 1000P @30 MLS/HR (KVO) IV SCH (08:00)
[2016-11-22 08:25] LABS: AUTOMATED NEUTROPHIL # 3.3 TH/MM3 (1.8-7.7); BASOPHIL # 0.1 TH/MM3 (0-0.2); BASOPHIL % 1.2 % (0.0-2.0); EOSINOPHIL # 0.1 TH/MM3 (0-0.4); EOSINOPHIL % 1.8 % (0.0-4.0); HEMATOCRIT 36.3 % (39.0-51.0); HEMO FLAGS DIFF FINAL; LYMPH % 32.1 % (9.0-44.0); MEAN CELL VOLUME 84.6 FL (80.0-100.0); MEAN CORPUSCULAR HEMOGLOBIN 28.9 PG (27.0-34.0); MEAN CORPUSCULAR HGB CONC 34.2 % (32.0-36.0); MONO % 10.6 % (0.0-8.0); NEUT % 54.3 % (16.0-70.0); PLATELET COUNT 238 TH/MM3 (150-450); RED BLOOD COUNT 4.28 MIL/MM3 (4.50-5.90); RED CELL DISTRIBUTION WIDTH 14.7 % (11.6-17.2); WHITE BLOOD COUNT 6.1 TH/MM3 (4.0-11.0)
[2016-11-22] MEDS ORDERED: ISOS30TA3 PO (08:25)
[2016-11-22] MEDS ORDERED: MIRTA15 PO (08:25)
[2016-11-22 08:32] LABS: APTT (PATIENT) 25.5 SEC (24.3-30.1); INTERNATIONAL NORMALIZED RATIO 0.9 RATIO; PROTHROMBIN TIME - PATIENT 10.2 SEC (9.8-11.6)
[2016-11-22 08:39] LABS: BICARBONATE 24.8 MEQ/L (21.0-32.0); POTASSIUM 3.6 MEQ/L (3.5-5.1)
[2016-11-22] MEDS ORDERED: MIDAZOLAM HCL 2 MG/2 ML VIAL ONE ×2 (10:21→11:21)
[2016-11-22] MEDS ORDERED: HEPARIN-NS/PF INJ 1,000 ML ONE (10:21)
[2016-11-22] MEDS ORDERED: NITROGLYCERIN INJ 5 ML ONE (10:33)
[2016-11-22] MEDS ORDERED: VERAPAMIL HCL 5 MG/2 ML VIAL ONE (10:33)
[2016-11-22] MEDS ORDERED: HEPARIN SODIUM - IV 10,000 UNITS/10 ML VIAL ONE (10:33)
--- NOTE | 2016-11-22 12:01 | CATHPROC ---
[employer] HIS Report Study Information Study Number Admission Scheduled Start Study Start [id number] Nov 22 2016 7:39AM 11/22/2016 Nov 22 2016 10:15AM [facility] Cardiac Catheterization Admit Source Facility Department Other [facility] Physician and Clinical Staff Initial Harlan Boss Network Designer Mark Boucher,BUD Other cathlab, cathlab Recorder Luis Daniel Mcclendon RCIS(BS) Scrub Michelle Nicholson,RT(R) (BS) Procedures Performed Procedure Location (Site) Vessel Name Coronary Angiograms LCA Left Coronary Coronary Angiograms RCA Right Coronary Drug Eluting Inflatio RAMUS Mid CIRC L Heart Cath PTCA RAMUS Mid CIRC Wire insertion Radial (right) Radial Art. Equipment Time Dynamometer Tester Description Size Mfg Part Number Used/Scraped WIRE, BALANCE MIDDLEWEIGHT [id number] 11:13 [employer] 300CM Used 300CM *[id number] TRANSDUCER, TRUWAVE [id number] 10:16 FUNES GREGORY * Used W/STOCKCOCK *[id number] *[id number] *[id number] WIRE, HYDROSTEER 150CM [id number] 10:53 [employer]IG[employer] 150CM Used ANGLED GLIDE *[id number] 10:16 [employer] PACK, CCL CUSTOM * Used *[id number] 10:16 [employer] SUPPORT, ARTERIAL ADULT [id number] *[id number] Used [id number] 11:14 [employer] BALLOON, 2.5 X 10MM EUPHORA 10MM Used *[id number] BALLOON, 2.5 X 8MM NC [id number] 11:42 [employer] 8MM Used EUPHORA *[id number] 10:49 MEDTRONIC JR 4.0 DXTERITY CATHETER FR 5 [id number] Used [id number] 11:36 [employer]ONIC STENT, 2.5 12MM PINO 2.5 12MM Used *[id number] 11:11 [employer]IC/AVE EBU 3.5 Z2 GUIDE CATHETER FR 6 Used *[id number] 11:11 [employer] 30 JANINA INDEFLATOR Used *[id number] BAND, RADIAL COMPRESSION TR [id number] 11:50 [employer] MEDICAL 29CM Used LARGE 29 *[id number] 10:16 [employer] WIRE, EXCHANGE 260CM 3MMJ 260CM Used *[id number] 10:16 NAMIC MANIFOLD, 4 PORT * Used *[id number] 10:16 [employer] OMNIPAQUE, 350 MG, 150ML 150ML [id number] Used [id number] 10:16 [employer] BL[employer]ET,WARM AIR CCL * Used *[id number] SHEATH, FR6 TRANSRADIAL [id number] 10:16 [employer] MEDICAL FR 6 Used SLENDER 10CM *[id number] Equipment Model, Serial, Lot Number and Expiration Data Description Model Number Serial Number Lot Number Expiration Date BALLOON, 2.5 X 8MM NC EUPHORA [id number] 09-29-2018 STENT, 2.5 12MM PINO [id number] 07-05-2018 History: Current Medications Medication Dosage/Unit Route Frequency Last Date/Time Taken ASA Beta Juvenal NORVASC Statins (any) BRILLINTA LIPITOR LISINOPRIL History: Allergies Allergy Reaction No Known Allergies History: Risk Factors Family History of Hypertension Dyslipidemia Previous RI Previous Heart Failure Premature CAD Yes Yes No No No Prior Valve Prior PCI Prior PCIDate Prior CABG Surgery No Yes 09/06/2016 No Cerebrovascular Peripheral Artery Chronic Lung On Dialysis Diabetes Disease Disease Disease No No No No No History: Symptoms/Diagnosis Selection Items Chest pain History: CV Disease Selection Items Known CAD History: Stress Tests Stress or Imaging Studies Performed No History: Other Disease Selection Items CAD HTN History: Other Current Smoker Method Quit Packs a Day Years Used Pack Years No Cigarettes 5 Years Ago 1 15 15 Labs Hgb (g/dl) Hct (%) WBC (l/cumm) Platelets (thousands) 11.60-17.00 35.00-51.00 4.00-11.00 150.00-450.00 12.4 36.3 6.1 238 Glucose (mg/dl) BUN (mg/dl) Creatinine (mg/dl) BUN:Creatinine (1:x) 74.00-106.00 7.00-18.00 0.50-1.30 10.00-20.00 92 19 1.0 19 Na (meq/l) K (meq/l) 136.00-145.00 3.50-5.10 144 3.6 INR (PTT:PT) 0.90-1.10 0.9 CPK-MB (ng/ML) 0.50-3.60 Not Drawn Medication Medication Total Dose (Bolus/Oral) Medication Total Dosage/Unit 1% XYLOCAINE 3 mL FENTANYL 75 mcg NTG (IC) 600 mcg RADIAL COCKTAIL 5 mL (Bolus) VERSED 1.5 mg Medications (Bolus/Oral) Medication Time Given Dosage/Unit Administered By Reason VERSED 11/22/2016 10:46:18 AM 1 mg Mark Boucher 1 mg VERSED given in lab by Mark Boucher RN in Left Antecubital via Peripheral IV. Ordered by Harlan Angeles. FENTANYL 11/22/2016 10:46:25 AM 50 mcg Mark Boucher 50 mcg FENTANYL given in lab by Mark Boucher RN in Left Antecubital via Peripheral IV. Ordered by Harlan Isaac. 1% XYLOCAINE 11/22/2016 10:46:55 AM 3 mL Mark Boucher 3 mL 1% XYLOCAINE given in lab by Mark Boucher RN in Right Radial via Subcutaneous. Ordered by Harlan Arambula. Ntg 200mcg Verapamil 2.5mg Heparin RADIAL COCKTAIL 11/22/2016 10:48:26 AM 5 mL (Bolus) Harlan Isaac 2500U 5 mL (Bolus) RADIAL COCKTAIL given in lab by Harlan Isaac via Radial. Using [Solution Name]. [place] son: Ntg 200mcg Verapamil 2.5mg Heparin 4000U. NTG (IC) 11/22/2016 11:09:06 AM 200 mcg Harlan Isaac 200 mcg NTG (IC) given in lab by Harlan Isaac via Intra-coronary. VERSED 11/22/2016 11:22:30 AM 0.5 mg Mark Boucher 0.5 mg VERSED given in lab by Mark Boucher RN in Left Antecubital via Peripheral IV. Ordered by Harlan Rivas. FENTANYL 11/22/2016 11:22:35 AM 25 mcg Mark Boucher 25 mcg FENTANYL given in lab by Mark Boucher RN in Left Antecubital via Peripheral IV. Ordered by Harlan Isaac. NTG (IC) 11/22/2016 11:40:42 AM 200 mcg Harlan Isaac 200 mcg NTG (IC) given in lab by Harlan Isaac via Intra-coronary. NTG (IC) 11/22/2016 11:46:20 AM 200 mcg Harlan Isaac 200 mcg NTG (IC) given in lab by Harlan Isaac via Intra-coronary. Medication (Drip) Medication Time Given Dosage/Unit Concentration/Unit Diluent (ml) Solutio n IV Solutions 11/22/2016 10:15:12 AM 0 mL (IV) 500 NaCl .9 Patient arrived on IV Solutions given by cathlab, cathlab in Left Antecubital via Peripheral IV. Pump /Drip Flow = 20 ml/hr using NaCl .9. Ordered by Harlan Isaac. Initial Case Assessment Cardiovascular HR Rhythm NIBP Chest Pain 73 nsr 150/101 0 Edema Present Skin color Skin None Normal Warm Dry Circulatory - Right Pulses Dorsalis Pedis Femoral Radial 2 2 2 Scale (0,1,2,3,4,d) Circulatory - Left Pulses Dorsalis Pedis Femoral Radial 2 2 Scale (0,1,2,3,4,d) Neurological State Oriented to time-place- Alert Moves all extremities person Respiration - General Respiration Rate SpO2 (%) (B/min) 15 98 Chronological Log Time Study Chronological Log 10:15:04 Patient arrived via Bed. 10:15:04 Patient Name, D.O.B, / Armband Verified By R.N. 10:15:05 Consent signed by the physician and the patient and verified by the [facility] staff. 10:15:05 Pre-op and post- op instructions given; patient acknowledges understanding of instructions. 10:15:06 Verbal Stimulation=2 Physical Stimulation=2 Airway=2 Respiration=2 TOTAL=8. (0=absent, 1=li mited, 2=present) 10:15:06 Presedation assessment performed by [facility] RN. 10:15:08 Immediate Presedation assesment performed by physician. 10:15:08 Patient has been NPO for More than 6Hrs. 10:15:09 Skin Breakdown- none per patient 10:15:10 Patient Warmer Placed on the Table. 10:15:10 Lidia Prominences Protected 10:15:12 A # 20 IV was noted in the Antecubital (left). Grade = 0 Patient arrived on IV Solutions given by cathlab, cathlab in Left Antecubital via Peripheral IV . Pump/Drip Flow = 20 10:15:12 ml/hr using NaCl .9. Ordered by Harlan Isaac. 10:15:13 History and physical on the chart or being dictated. Vitals capture started with the following parameters, Patient=Adult, Interval=5 min, Initial Pr ltfsmd=548 mmHg, 10:20:47 Deflation Rate=5 mmHg, Cuff placed on Right Arm Assessment: Initial Case, HR=73 BPM, Rhythm=nsr, HPIB=684/101 mmhg, Chest Pain=0, Edema=None, Color=Normal, Skin = Warm, Dry Right Pulses: Chiki Ped=2, Femoral=2, Radial=2 10:20:53 Left Pulses: Chiki Ped=2, Femoral=2 Neurological: State=Alert, Ox3, GIL Respiration: Resp=15 B/min, SpO2=98 % 10:21:05 Reference ECG taken 10:21:51 HR=70 bpm, XTKX=217/101 mmhg, SpO2=95.0 %, Resp=16 B/min, Pain=0, Raquel=10, Smith=2 10:26:23 HR=68 bpm, CUVK=900/95 mmhg, SpO2=97.0 %, Resp=16 B/min, Pain=0, Raquel=10, Smith=2 10:28:04 MD arrived. 10:28:08 Contrast Scanned 10:28:09 Immediate Presedation assesment performed by physician. 10:31:25 HR=72 bpm, KEDS=077/94 mmhg, SpO2=96.0 %, Resp=13 B/min, Pain=0, Raquel=10, Smith=2 10:36:24 HR=70 bpm, SMWV=664/93 mmhg, SpO2=93.0 %, Resp=14 B/min, Pain=0, Raquel=10, Smith=2 10:37:02 Right Radial and groin(s) prepped with 2% chlorhexidine, and with a 3 min. waiting time. 10:41:27 HR=67 bpm, EJJE=199/91 mmhg, SpO2=95.0 %, Resp=15 B/min, Pain=0, Raquel=10, Smith=2 10:43:19 Pressure channel 1 zeroed. Time Out. Correct patient, correct procedure,correct physician, ,power injectornot loaded with contrast with surgical 10:46:07 team present. Time Out Concurred by , individual staff in procedure 10:46:18 1 mg VERSED given in lab by Mark Boucher, BUD in Left Antecubital via Peripheral IV. Order ed by Harlan Isaac. 10:46:25 50 mcg FENTANYL given in lab by Mark Boucher, RN in Left Antecubital via Peripheral IV. O rdered by Harlan Isaac. 10:46:28 HR=77 bpm, ONQQ=893/91 mmhg, SpO2=94.0 %, Resp=16 B/min, Pain=0, Raquel=10, Smith=2 10:46:31 Case Start 10:46:43 Verbal Stimulation=2 Physical Stimulation=2 Airway=2 Respiration=2 TOTAL=8. (0=absent, 1=li mited, 2=present) 10:46:55 3 mL 1% XYLOCAINE given in lab by Mark Boucher, BUD in Right Radial via Subcutaneous. Orde red by Harlan Isaac. 10:48:02 Access site was Right Radial Artery. A SHEATH, FR6 TRANSRADIAL SLENDER 10CM FR 6 was advanced into the Radial (right) using the Perc utaneous 10:48:12 technique. 5 mL (Bolus) RADIAL COCKTAIL given in lab by Harlan Isaac via Radial. Using [Solution Name ]. Reason: Ntg 10:48:26 200mcg Verapamil 2.5mg Heparin 4000U. A JR 4.0 DXTERITY CATHETER FR 5 was advanced over a wire. OMNIPAQUE, 350 MG, 150ML 150ML was us ed for 10:49:12 injections. 10:51:25 HR=86 bpm, JPMF=700/94 mmhg, SpO2=92.0 %, Resp=15 B/min, Pain=0, Raquel=10, Smith=2 10:52:50 A WIRE, HYDROSTEER 150CM ANGLED GLIDE 150CM was inserted via Radial (right). Recorded Pressure: LV, HR=80, Condition=Condition 1 10:55:14 (Left Ventricle) LV 125/4/13 Recorded Pressure: LV, Ao, HR=80, Condition=Condition 1 10:55:33 (Left Ventricle) LV 125/5/10, (Aorta) Ao 130/79/102 10:55:55 The RCA was injected and visualized at various angles. OMNIPAQUE, 350 MG, 150ML 150ML used . Recorded Pressure: Ao, HR=78, Condition=Condition 1 10:56:01 (Aorta) Ao 129/81/102 10:56:22 HR=78 bpm, BBUQ=457/80 mmhg, SpO2=93 %, Resp=13 B/min, Pain=0, Raquel=10, Smith=2 After removing the current catheter a JL 3.5 INFINITI CATHETER FR 5 was advanced over a WIRE, E XCHANGE 260CM 10:58:11 3MMJ 260CM. 11:00:20 The LCA was injected and visualized at various angles. OMNIPAQUE, 350 MG, 150ML 150ML used . 11:01:23 HR=78 bpm, ZRFU=440/92 mmhg, SpO2=95 %, Resp=16 B/min, Pain=0, Raquel=10, Smith=2 11:06:28 HR=79 bpm, NULC=007/74 mmhg, SpO2=96 %, Resp=15 B/min, Pain=0, Raquel=10, Smith=2 11:09:06 200 mcg NTG (IC) given in lab by Harlan Isaac via Intra-coronary. After removing the current catheter a EBU 3.5 Z2 GUIDE CATHETER FR 6 was advanced over a WIRE, EXCHANGE 11:11:08 260CM 3MMJ 260CM. 11:11:27 HR=80 bpm, BOTA=088/87 mmhg, SpO2=93 %, Resp=14 B/min, Pain=0, Raquel=10, Smith=2 11:16:26 HR=80 bpm, GJUB=429/96 mmhg, SpO2=95 %, Resp=14 B/min After removing the current catheter a JL 3.5 GUIDE CATHETER FR 6 was advanced over a WIRE, EXCH CARO 260CM 11:20:55 3MMJ 260CM. 11:21:27 HR=77 bpm, FDRQ=996/98 mmhg, SpO2=93.0 %, Resp=15 B/min, Pain=0, Raquel=10, Smith=2 11:22:30 0.5 mg VERSED given in lab by Mark Boucher RN in Left Antecubital via Peripheral IV. Ord ered by Harlan Isaac. 11:22:35 25 mcg FENTANYL given in lab by Mark Boucher RN in Left Antecubital via Peripheral IV. O rdered by Harlan Isaac. 11:26:57 Activated Clotting Time Drawn 11:27:07 HR=85 bpm, STEO=156/109 mmhg, SpO2=95 %, Resp=13 B/min, Pain=0, Raquel=10, Smith=2 11:28:48 A WIRE, BALANCE MIDDLEWEIGHT 300CM 300CM was inserted via Radial (right). 11:30:50 Interventional wire has crossed the lesion A BALLOON, 2.5 X 10MM EUPHORA 10MM was inserted over WIRE, BALANCE MIDDLEWEIGHT 300CM 300CM via the 11:30:53 RAMUS Mid. 11:31:20 ACT (Normal Range 90-180) = 373 11:31:31 HR=83 bpm, DIJN=522/110 mmhg, SpO2=95 %, Resp=17 B/min, Pain=0, Raquel=10, Smith=2 A BALLOON, 2.5 X 10MM EUPHORA 10MM over a WIRE, BALANCE MIDDLEWEIGHT 300CM 300CM in the RAMUS M id 11:34:01 was inflated using a 30 JANINA INDEFLATOR at 8 janina for 15 sec. 11:35:11 Balloon Removed. A STENT, 2.5 12MM PINO 2.5 12MM was advanced through a JL 3.5 GUIDE CATHETER FR 6 over a WIRE, BALANCE 11:36:00 MIDDLEWEIGHT 300CM 300CM. 11:36:34 HR=87 bpm, INLF=840/107 mmhg, SpO2=95 %, Resp=13 B/min, Pain=0, Raquel=10, Smith=2 A STENT, 2.5 12MM PINO 2.5 12MM was deployed using a 30 JANINA INDEFLATOR at 12 atmospheres for 20 seconds in 11:38:45 the RAMUS Mid. 11:39:36 Delivery device removed 11:40:42 200 mcg NTG (IC) given in lab by Harlan Isaac via Intra-coronary. 11:41:29 HR=90 bpm, VJOQ=814/93 mmhg, SpO2=95 %, Resp=13 B/min, Pain=0, Raquel=10, Smith=2 A BALLOON, 2.5 X 8MM NC EUPHORA 8MM was inserted over WIRE, BALANCE MIDDLEWEIGHT 300CM 300CM vi a the 11:41:54 RAMUS Mid. A BALLOON, 2.5 X 8MM NC EUPHORA 8MM over a WIRE, BALANCE MIDDLEWEIGHT 300CM 300CM in the RAMUS Mid 11:43:50 was inflated using a 30 JANINA INDEFLATOR at 12 janina for 20 sec. 11:46:20 200 mcg NTG (IC) given in lab by Harlan Isaac via Intra-coronary. 11:46:28 HR=84 bpm, GJUN=227/106 mmhg, SpO2=90.0 %, Resp=12 B/min, Pain=0, Raquel=10, Smith=2 11:46:51 Balloon Removed. 11:47:24 Wire removed 11:48:43 Catheter was removed Radial Compression Device Used. 12 mLs of air placed in BAND, RADIAL COMPRESSION TR LARGE 29 29 CM. Affected 11:50:30 hand 95 % O2 saturation. 11:51:48 Case End 11:51:49 Sterile dressing applied to site 11:51:50 No case complications noted. 11:51:51 Cine recording checked. 11:51:52 Holding Area notified of successful intervention. 11:51:53 Bedside Report will be given. 11:51:53 Implantable Device card placed in patient's chart. 11:51:55 Contrast Scanned 11:51:55 Verbal Stimulation=2 Physical Stimulation=2 Airway=2 Respiration=2 TOTAL=8. (0=absent, 1=l imited, 2=present) 11:52:03 A Left Heart Cath was performed. 11:52:12 HR=83 bpm, AFAI=119/105 mmhg, SpO2=93.0 %, Resp=15 B/min, Pain=0, Raquel=10, Smith=2 11:53:53 Case End 11:56:39 HR=83 bpm, WNYB=848/136 mmhg, SpO2=91.0 %, Resp=10 B/min, Pain=0, Raquel=10, Smith=2 11:58:16 Vitals capture stopped. 11:58:18 Patient moved to stretcher End Study - Contrast Media Used In Study Contrast Total Opened (mL) Total Used (mL) Total Wasted (mL) Omnipaque 200 200 0 End Study - Maximum Contrast Load Max Contrast Load (mL) 479.5 End Study - Radiation Exposure Fluoro Time (minutes) 19.9 End Study - Patient Disposition Complications Transferred To Interventional Outcome No [facility] successful
[2016-11-22] MEDS ORDERED: SODIUM CHLOR 0.9% 1000 ML INJ 1,000 ML IV SCH (12:05)
[2016-11-22] MEDS ORDERED: MISC INFORMATION XX ONE (12:15)
[2016-11-22] MEDS ORDERED: ONDANSETRON HCL 4 MG/2 ML VIAL IVP PRN (12:15)
[2016-11-22] MEDS ORDERED: NITROGLYCERIN 0.4 MG SL 25 TABS/BTL SL PRN (12:15)
[2016-11-22] MEDS ORDERED: ACETAMINOPHEN 325 MG TAB PO PRN (12:15)
[2016-11-22] MEDS ORDERED: MORPHINE SULFATE 4 MG/ML INJ IV PUSH PRN (12:15)
[2016-11-22] MEDS ORDERED: oxyCODONE/ACETAMINOPHEN 10 MG/325 MG TAB PO PRN (12:15)
--- NOTE | 2016-11-22 17:27 | MH ---
cc: HARLAN AMBRIZ DO DATE OF ADMISSION 11/22/2016 CHIEF COMPLAINT Unstable angina status post coronary stenting. HISTORY OF CHIEF COMPLAINT Mauri Damon is a pleasant 56-year-old male who presented to my office around 1-2 weeks ago with a chief complaint of unstable angina. In August 2016, he underwent multivessel coronary artery stenting and had been doing well since. It was noted that over the past few weeks he has had to take multiple nitroglycerine a day to relieve his chest pain with minimal exertion. In seeing him in the office he was stable at rest, but with any activity he was getting significant chest pain and shortness of breath. Because of this, he was recommended cardiac catheterization. He underwent the procedure today and, during this, he was found to have significant progression of his ramus artery. He underwent placement of an anthony drug-eluting stent (2.5 x 12) without complication. In seeing him postprocedure, he is doing well with no chest pain or shortness of breath. PAST MEDICAL HISTORY 1. Coronary artery disease. 2. Hyperlipidemia. 3. Hypertension. PAST SURGICAL HISTORY 1. Cardiac catheterization (November 22, 2016) with PCI of ramus with an anthony drug-eluting stent (2.5 x 12). 2. Cardiac catheterization (August 04, 2016) LAD intervention with a Resolute drug-eluting stent (2.75 x 14), intervention of the obtuse marginal with a Resolute drug-eluting stent (2.5 x 14). 3. Cardiac catheterization (September 05, 2016). PCI of the PDA with a Resolute drug-eluting stent (2.25 x 14). 4. Lumbosacral spine surgery. ALLERGIES NO KNOWN DRUG ALLERGIES. MEDICATIONS 1. Aspirin 81 mg daily 2. Brilinta 90 mg b.i.d. 3. Lipitor 40 mg daily 4. Norvasc 10 mg daily 5. Lisinopril 20 mg daily 6. Metoprolol tartrate 25 mg b.i.d. FAMILY HISTORY Positive for premature coronary artery disease on his father's side. Denies sudden cardiac within the family. SOCIAL HISTORY The patient drinks socially. Previously smoked but quit previously. REVIEW OF SYSTEMS 14-systems were reviewed including osteopathic. Pertinent positives and negatives as above otherwise negative. PHYSICAL EXAMINATION VITAL SIGNS: Temperature 97.9, heart rate 69, blood pressure 153/95, respirations 17, pulse ox 98% on room air. GENERAL: The patient appears well in no acute distress, alert awake and oriented x3. HEENT: Extraocular muscles intact. Mucous membranes moist. NECK: Supple. No JVD at 45 degrees. No carotid bruits heard bilaterally. Carotid upstroke is brisk in nature. HEART: Regular rate and rhythm. Positive first and second heart sounds with no murmurs, gallops or rubs. LUNGS: Clear to auscultation bilaterally. No wheezes, rales or rhonchi. ABDOMEN: Soft, nontender, nondistended. No organomegaly noted. EXTREMITIES: No clubbing, cyanosis or edema. Femoral and distal pulses intact bilaterally. NEUROLOGIC: No focal deficits. SKIN: Warm, dry and intact. OSTEOPATHIC: No kyphoscoliosis, lordosis or paraspinal tender points. LABORATORY FINDINGS Hemoglobin 12.4, hematocrit 36.3, platelets 238. Potassium 3.6, BUN 19, creatinine 1.02. CARDIOLOGY STUDIES Electrocardiogram (November 22, 2016 at 08:22) sinus rhythm, borderline first degree AV block, possible inferior infarct age indeterminate. IMPRESSION 1. Unstable angina on multiple anti-anginals 2. Coronary artery disease as above with recent stenting of his ramus and previous multivessel stenting. 3. Hypertension 4. Hyperlipidemia. 5. Premature coronary artery disease IN his family history. RECOMMENDATIONS 1. Mr. Damon underwent successful stenting of his ramus today. He will continue on aspirin and Brilinta therapy. 2. He will be watched overnight and gently hydrated. Labs will be checked in the morning and, if everything is stable, he will be discharged home. 3. He has nitroglycerin at home as needed. 4. He will continue on his current beta-ludmila, statin, MERCEDEZ inhibitor therapy. We will plan on increasing his Lipitor to 80 mg daily as he has had significant progression of his coronary artery disease in a brief period of time. Thank you for allowing me to see Mauri Damon. If there are any questions, please do not hesitate to call. Harlan Ambriz DO VGP/ /4:56 PM /5:10 PM
--- NOTE | 2016-11-22 17:42 | MA ---
cc: HARLAN AMBRIZ DO DATE November 22, 2016 PROCEDURE Left heart catheterization, coronary angiogram, Manolo drug-eluting stent (2.5 x 12) to the ramus, sedation 65 minutes. PREPROCEDURE DIAGNOSIS Unstable angina on multiple antianginal medications, coronary artery disease with recent multivessel stenting. POSTPROCEDURE DIAGNOSIS Coronary artery disease status post Supply drug-eluting stent (2.5 x 12) to the ramus. MEDICATIONS 1. Versed 2.5 milligrams. 2. Fentanyl 100 micrograms. 3. Heparin 9800 units. 4. Verapamil 2.5 milligrams. 5. Nitro 200 micrograms. CONTRAST USED 200 cc. FLUOROSCOPY 19.9 minutes. MODERATE SEDATION 65 minutes. ESTIMATED BLOOD LOSS 10 cc. PROCEDURAL SUMMARY Mauri Damon is a pleasant 56-year-old male who I see in the office who presented with symptoms concerning for unstable angina. He was using multiple nitroglycerins a day and as he had recent stenting was not a candidate for undergoing stress testing. Because of this he was recommended cardiac catheterization. Risks, benefits and alternatives were explained to him he consented as such. He was brought to the lab and prepped in the usual sterile fashion. Right radial artery was accessed using a modified Seldinger technique and placement of a 5/6 [place] slender sheath. This was easily aspirated and flushed. A JR-4 was advanced to the mid forearm where there was some difficulty. An angiogram shows no significant complication with the right radial artery. The rest of the path to the ascending aorta was navigated using a Glidewire. JR-4 was advanced across the aortic valve into the left ventricle for measurement of left ventricular pressure. JR-4 was pulled back across the aortic valve showing no significant gradient of aortic stenosis. JR-4 was used for selective angiography of the right coronary artery. This was exchanged out for a JL-3.5 which was used for selective angiography of the left coronary artery. The patient was noted to have significant progression of his coronary artery disease in the ramus since his last cardiac catheterization 2 months ago. To make sure this was not just spasm he was given 200 micrograms of nitroglycerin intracoronary with no resolution. Please see below for interventional notes. Postprocedure guide was removed. Radial band was placed over the arteriotomy site for hemostasis. 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 FINDINGS Left main: Normal size vessel with adequate reflux. Overall short in nature. Trifurcates into an LAD ramus and left circumflex. LAD: Normal size vessel with mild luminal irregularities through the proximal portion. Stent in the midportion across the second diagonal is patent with no restenosis noted. First diagonal has diffuse 70% disease in an overall extremely small vessel. Left circumflex: Normal size vessel with mild luminal irregularities. Stent noted in the first obtuse marginal is patent without restenosis. Ramus: Normal size vessel with a 99% stenosis at the bifurcation into a medial and lateral branch. RCA: Normal size vessel with mild luminal irregularities and tortuosity through the proximal and midportion. Distally is a dominant vessel and stent in the PDA is patent without restenosis. LVEDP 10. INTERVENTION Because of Mr. Damon's significant unstable angina ([place] Anginal Score 3 on multiple antianginals) I felt that it was necessary to intervene on his ramus artery as his previous stents had no complications to be causing his significant chest pain. He was given heparin as an additional anticoagulant. An EBU 3.5 catheter was attempted to engage the left main but was unable to and so this was exchanged out for a JL-3.5 guide. A BMW wire was advanced down the ramus artery. A compliant balloon (2.5 x 10) was then inflated over the lesion. An Supply drug-eluting stent (2.5 x 12) was then placed over the lesion and inflated. A noncompliant balloon (2.5 x 8) was then used over the stented area for better apposition. Final angiography shows well-opposed stent with no perforations or dissection and DANIELA-III flow down the lateral branch for which there was provisional stenting across. Wires were removed. Guide catheter was removed. IMPRESSION 1. Unstable angina status post Manolo drug-eluting stent (2.5 x 12) to the ramus artery. 2. Coronary artery disease with multivessel stenting (August 2016). 3. Hypertension. RECOMMENDATIONS 1. Mr. Damon presented with progression of his coronary artery disease in a ramus artery and this was treated with a drug-eluting stent. He will be continued on aspirin and Brilinta therapy. 2. We will plan on increasing his Lipitor to 80 milligrams every night. He will continue on his MERCEDEZ inhibitor, beta ludmila and Imdur therapy as possible. 3. He has nitroglycerin that he can use as needed. 4. He will be watched overnight and discharged in the morning if stable. Thank you for allowing me to see Mauri Damon. If there are any questions please do not hesitate to call. Harlan Ambriz DO VGP/EO /4:42 PM /5:27 PM
[2016-11-22] MEDS: oxyCODONE/ACETAMINOPHEN 5 MG/325 MG TAB PO PRN ×2 (18:00→21:35)
[2016-11-22] MEDS ORDERED: MIRTAZAPINE 15 MG TAB PO SCH (21:00)
[2016-11-22] MEDS ORDERED: ATORVASTATIN 40 MG TAB PO SCH (21:00)
[2016-11-22] MEDS: TICAGRELOR 90 MG TAB PO SCH (21:33)
[2016-11-22] MEDS: METOPROLOL TARTRATE 25 MG TAB PO SCH (21:33)
[2016-11-23] VITALS (10 sets, daily range): BP systolic 139–143; BP diastolic 91–98; PULSE 55–90; RESP 17–18; TEMP 97.3–97.7; O2SAT 97–98
[2016-11-23 07:36] LABS: AUTOMATED NEUTROPHIL # 2.9 TH/MM3 (1.8-7.7); BASOPHIL # 0.1 TH/MM3 (0-0.2); BASOPHIL % 0.8 % (0.0-2.0); EOSINOPHIL # 0.2 TH/MM3 (0-0.4); EOSINOPHIL % 2.4 % (0.0-4.0); HEMATOCRIT 40.3 % (39.0-51.0); HEMO FLAGS DIFF FINAL; LYMPH % 43.4 % (9.0-44.0); LYMPHOCYTE # 2.9 TH/MM3 (1.0-4.8); MEAN CELL VOLUME 85.9 FL (80.0-100.0); MEAN CORPUSCULAR HEMOGLOBIN 28.4 PG (27.0-34.0); MONO % 10.2 % (0.0-8.0); NEUT % 43.2 % (16.0-70.0); PLATELET COUNT 241 TH/MM3 (150-450); RED CELL DISTRIBUTION WIDTH 14.9 % (11.6-17.2); WHITE BLOOD COUNT 6.7 TH/MM3 (4.0-11.0)
[2016-11-23 07:55] LABS: BICARBONATE 23.2 MEQ/L (21.0-32.0); POTASSIUM 3.5 MEQ/L (3.5-5.1)
[2016-11-23] MEDS ORDERED: LISINOPRIL 20 MG TAB PO SCH (09:00)
[2016-11-23] MEDS ORDERED: ISOSORBIDE MONONITRATE 30 MG TAB PO SCH (09:00)
[2016-11-23] MEDS ORDERED: ASPIRIN EC 81 MG TABEC PO SCH (09:00)
[2016-11-23] MEDS: METOPROLOL TARTRATE 25 MG TAB PO SCH (09:38)
[2016-11-23] MEDS: TICAGRELOR 90 MG TAB PO SCH (09:38)
--- NOTE | 2016-11-23 10:19 | EKG ---
Date Performed: 11/22/2016 Time Performed: 08:22:18 PTAGE: 56 years EKG: Sinus rhythm with borderline 1st degree A-V block. Possible inferior infarct - age undetermined Abnormal ECG PREVIOUS TRACING : 09/01/2016 21.09 Compared to prior tracing no significant change DOCTOR: Rob Ventura Interpretating Date/Time 11/23/2016 10:13:09
--- NOTE | 2016-11-23 10:30 | PD.CARD.PN ---
Subjective Subjective Remarks No events overnight No CP/SOB Objective Medications Current Medications Medications (Trade) Dose Ordered Sig/Juan C Route Start Time Stop Time Status Last Admin Sodium Chloride 1,000 ml @ 30 mls/hr Q24H IV 11/22/16 08:00 (Norvasc) 10 mg DAILY PO 11/23/16 09:00 11/23/16 09:38 (Ecotrin Ec) 81 mg DAILY PO 11/23/16 09:00 11/23/16 09:38 (Lipitor) 40 mg HS PO 11/22/16 21:00 11/22/16 21:38 (Imdur) 30 mg DAILY PO 11/23/16 09:00 (Prinivil) 20 mg DAILY PO 11/23/16 09:00 11/23/16 09:38 (Lopressor) 25 mg Q12HR PO 11/22/16 21:00 11/23/16 09:38 (Remeron) 15 mg HS PO 11/22/16 21:00 11/22/16 21:32 (Nitrostat Sl) 0.4 mg Q5M PRN SL 11/22/16 12:15 (Brilinta) 90 mg BID PO 11/22/16 21:00 11/23/16 09:38 (Tylenol) 325 mg Q4H PRN PO 11/22/16 12:15 (Percocet 5-325 Mg) 1 tab Q4H PRN PO 11/22/16 12:15 11/22/16 21:35 (Percocet 10-325 Mg) 1 tab Q4H PRN PO 11/22/16 12:15 (Morphine Inj) 2 mg Q30M PRN IV PUSH 11/22/16 12:15 (Zofran Inj) 4 mg Q6H PRN IVP 11/22/16 12:15 Vital Signs / I&O Vital Signs Date Time Temp Pulse Resp B/P (MAP) Pulse Ox O2 Delivery O2 Flow Rate FiO2 11/23/16 10:00 78 11/23/16 09:00 82 11/23/16 08:00 62 11/23/16 07:00 55 11/23/16 07:00 97.7 72 17 139/91 (107) 97 11/23/16 06:00 56 11/23/16 05:00 90 11/23/16 04:00 66 11/23/16 03:00 66 11/23/16 03:00 97.3 71 18 143/98 (113) 98 11/23/16 02:00 68 11/23/16 00:00 68 11/22/16 23:00 97.5 78 18 123/70 (87) 94 11/22/16 23:00 74 11/22/16 22:00 82 11/22/16 21:00 92 11/22/16 20:00 92 11/22/16 19:00 97.7 92 12 150/96 (114) 97 11/22/16 19:00 95 11/22/16 18:00 93 11/22/16 17:00 92 11/22/16 16:38 97.4 87 20 160/99 (119) 97 11/22/16 16:38 83 11/22/16 12:05 96 Room Air I/O 11/22/16 11/22/16 11/22/16 11/23/16 11/23/16 11/23/16 07:00 15:00 23:00 07:00 15:00 23:00 Intake Total 240 ml 480 ml Balance 240 ml 480 ml Intake Oral 240 ml 480 ml # Voids 3 Physical Exam GENERAL: NAD, AAOx3 SKIN: Warm and dry. HEAD: Atraumatic. Normocephalic. EYES: Pupils equal and round. No scleral icterus. No injection or drainage. ENT: No nasal bleeding or discharge. Mucous membranes pink and moist. NECK: Trachea midline. No JVD. CARDIOVASCULAR: Regular rate and rhythm. RESPIRATORY: No accessory muscle use. Clear to auscultation. Breath sounds equal bilaterally. GASTROINTESTINAL: Abdomen soft, non-tender, nondistended. Hepatic and splenic margins not palpable. MUSCULOSKELETAL: Extremities without clubbing, cyanosis, or edema. No obvious deformities. Right radial no hematoma, neurovascularly intact NEUROLOGICAL: Awake and alert. No obvious cranial nerve deficits. Motor grossly within normal limits. Five out of 5 muscle strength in the arms and legs. Normal speech. PSYCHIATRIC: Appropriate mood and affect; insight and judgment normal. Laboratory Laboratory Tests Test 11/23/16 07:02 White Blood Count 6.7 TH/MM3 Red Blood Count 4.70 MIL/MM3 Hemoglobin 13.3 GM/DL Hematocrit 40.3 % Mean Corpuscular Volume 85.9 FL Mean Corpuscular Hemoglobin 28.4 PG Mean Corpuscular Hemoglobin Concent 33.0 % Red Cell Distribution Width 14.9 % Platelet Count 241 TH/MM3 Mean Platelet Volume 8.5 FL Neutrophils (%) (Auto) 43.2 % Lymphocytes (%) (Auto) 43.4 % Monocytes (%) (Auto) 10.2 % Eosinophils (%) (Auto) 2.4 % Basophils (%) (Auto) 0.8 % Neutrophils # (Auto) 2.9 TH/MM3 Lymphocytes # (Auto) 2.9 TH/MM3 Monocytes # (Auto) 0.7 TH/MM3 Eosinophils # (Auto) 0.2 TH/MM3 Basophils # (Auto) 0.1 TH/MM3 CBC Comment DIFF FINAL Differential Comment Blood Urea Nitrogen 15 MG/DL Creatinine 0.93 MG/DL Random Glucose 84 MG/DL Calcium Level 8.9 MG/DL Sodium Level 140 MEQ/L Potassium Level 3.5 MEQ/L Chloride Level 110 MEQ/L Carbon Dioxide Level 23.2 MEQ/L Anion Gap 7 MEQ/L Estimat Glomerular Filtration Rate 102 ML/MIN Assessment and Plan Problem List: (1) Unstable angina ICD Codes: I20.0 - Unstable angina Status: Acute (2) CAD (coronary artery disease) ICD Codes: I25.10 - Atherosclerotic heart disease of [place] coronary artery without angina pectoris Status: Chronic (3) Chest pain ICD Codes: R07.9 - Chest pain Status: Acute (4) Hypertension ICD Codes: I10 - Hypertension Status: Chronic (5) Multi-vessel coronary artery stenosis ICD Codes: I25.10 - Atherosclerotic heart disease of [place] coronary artery without angina pectoris Status: Acute (6) Anxiety disorder due to medical condition ICD Codes: F06.4 - Anxiety disorder due to known physiological condition Status: Acute Assessment and Plan 1) CAD/[place] s/p Manolo YESENIA (2.5x12) to Ramus 2) Other stents all patent 3) Doing well this morning, cardiovascularly stable for discharge 4) Increase Lipitor to 80mg Harlan Isaac DO Nov 23, 2016 10:30
[2016-11-23] MEDS ORDERED: LIPI40TA PO (10:32)
--- NOTE | 2016-11-23 10:33 | HHI.DS ---
Discharge Summary Admission Date Discharge Date: Nov 23, 2016 Admitting Diagnosis Unstable angina with recent history of CAD/stenting (1) Unstable angina ICD Codes: I20.0 - Unstable angina Status: Acute (2) CAD (coronary artery disease) ICD Codes: I25.10 - Atherosclerotic heart disease of [place] coronary artery without angina pectoris Status: Chronic (3) Multi-vessel coronary artery stenosis ICD Codes: I25.10 - Atherosclerotic heart disease of [place] coronary artery without angina pectoris Status: Chronic (4) Chest pain ICD Codes: R07.9 - Chest pain Status: Chronic (5) Hypertension ICD Codes: I10 - Hypertension Status: Chronic (6) Anxiety disorder due to medical condition ICD Codes: F06.4 - Anxiety disorder due to known physiological condition Status: Chronic CBC/BMP: 11/23/16 0702 11/23/16 0702 Significant Findings Laboratory Tests Test 11/22/16 08:10 11/23/16 07:02 Red Blood Count 4.28 MIL/MM3 (4.50-5.90) Hemoglobin 12.4 GM/DL (13.0-17.0) Hematocrit 36.3 % (39.0-51.0) Monocytes (%) (Auto) 10.6 % (0.0-8.0) 10.2 % (0.0-8.0) Blood Urea Nitrogen 19 MG/DL (7-18) Chloride Level 113 MEQ/L (98-107) 110 MEQ/L (98-107) Hospital Course Unstable angina. Found to have a new lesion in the Ramus s/p Manolo YESENIA (2.5x12) Pt Condition on Discharge: Good Discharge Disposition: Discharge Home Discharge Instructions DIET: Follow Instructions for: Heart Healthy Diet Activities you can perform: See Additionl Instruction Additional Activity Instructio: No lifting more than 10 lbs for 3 days Harlan Isaac DO Nov 23, 2016 10:33
== END 2016-11-23 12:06 | disposition home or self-care (01) ==
LOC: HDIC 07:39 → HDOC 07:39 → HCIS 16:13 → HDOC 11-23 12:06
PROVIDERS: ATTEND Nuclear Medicine Nuclear Cardiology
DX: I25.110 Atherosclerotic heart disease of native coronary artery with unstable angina pectoris (principal); I10 Essential (primary) hypertension; F41.8 Other specified anxiety disorders; R07.9 Chest pain, unspecified; Z01.818 Encounter for other preprocedural examination; Z01.810 Encounter for preprocedural cardiovascular examination
CPT/HCPCS: 80048; 85002; 85025; 85610; 85730; 92928; 93005; 93454; C1725; C1769; C1874; C1887; C1893; J1644; J2250; J3010; Q9967

== ENCOUNTER 2017-06-07 08:02 | Day surgery (SDC) | payer OTHER ==
[~2017-06-07] VITALS: Ht 177.8 cm; Wt 94.6 kg
[~2017-06-07 08:02] MED LIST changes: -ASPI81TA11 PO; +ASPI81TA23 PO; +MIRTA15 PO; -NORC5TAB PO
[2017-06-07] MEDS ORDERED: IOHEXOL 350 MG/ML 50 ML BTL (for Cath Lab) OTHER ONE (08:03)
[2017-06-07 08:58] VITALS: BP 163/97; PULSE 70; RESP 18; TEMP 98.5; O2SAT 96
[2017-06-07] MEDS ORDERED: NS 1000P @30 MLS/HR (KVO) IV SCH (09:00)
[2017-06-07 09:05] LABS: AUTOMATED NEUTROPHIL # 2.7 TH/MM3 (1.8-7.7); BASOPHIL # 0.1 TH/MM3 (0-0.2); EOSINOPHIL # 0.2 TH/MM3 (0-0.4); EOSINOPHIL % 3.2 % (0.0-4.0); HEMATOCRIT 39.9 % (39.0-51.0); HEMOGLOBIN 13.2 GM/DL (13.0-17.0); LYMPH % 37.1 % (9.0-44.0); LYMPHOCYTE # 2.1 TH/MM3 (1.0-4.8); MEAN CELL VOLUME 83.8 FL (80.0-100.0); MEAN CORPUSCULAR HEMOGLOBIN 27.8 PG (27.0-34.0); MEAN CORPUSCULAR HGB CONC 33.2 % (32.0-36.0); MEAN PLATELET VOLUME 8.5 FL (7.0-11.0); MONO % 11.2 % (0.0-8.0); MONOCYTE # 0.6 TH/MM3 (0-0.9); NEUT % 47.5 % (16.0-70.0); PLATELET COUNT 283 TH/MM3 (150-450); RED BLOOD COUNT 4.76 MIL/MM3 (4.50-5.90); RED CELL DISTRIBUTION WIDTH 15.1 % (11.6-17.2); WHITE BLOOD COUNT 5.6 TH/MM3 (4.0-11.0)
[2017-06-07] MEDS ORDERED: ISOS30TA3 PO (09:13)
[2017-06-07 09:15] LABS: INTERNATIONAL NORMALIZED RATIO 0.9 RATIO; PROTHROMBIN TIME - PATIENT 9.6 SEC (9.8-11.6)
[2017-06-07 09:39] LABS: BICARBONATE 25.3 MEQ/L (21.0-32.0); CALCIUM 9.1 MG/DL (8.5-10.1); CREATININE 1.04 MG/DL (0.60-1.30)
[2017-06-07] MEDS ORDERED: VERAPAMIL HCL 5 MG/2 ML VIAL ONE (10:35)
[2017-06-07] MEDS ORDERED: HEPARIN-NS/PF FLUSH BAG 2,000 ML IV FLUSH ONE (10:35)
[2017-06-07] MEDS ORDERED: MIDAZOLAM HCL 2 MG/2 ML VIAL ONE (10:35)
[2017-06-07] MEDS ORDERED: HEPARIN SODIUM - IV 10,000 UNITS/10 ML VIAL ONE (10:36)
[2017-06-07] MEDS ORDERED: LIDOCAINE HCL 1% PF 30 ML VIAL ONE (10:42)
--- NOTE | 2017-06-07 11:56 | CATHPROC ---
[facility] HIS Report Study Information Study Number Admission Scheduled Start Study Start [id number] Jun 07 2017 8:02AM 06/07/2017 Jun 07 2017 10:35AM [place] [facility] Cardiac Catheterization Admit Source Facility Department Other [facility] Physician and Clinical Staff Initial Harlan Boss Loader Machine Mayco FARRELL, Rosas Other cathlab, cathlab Recorder Luis Daniel Mcclendon RCIS(BS) Scrub Jamari, Angelia,LIFE SKILLS EDUCATOR TECH2 Procedures Performed Procedure Location (Site) Vessel Name Coronary Angiograms LCA Left Coronary Coronary Angiograms RCA Right Coronary L Heart Cath Equipment Time Warp Knitter Helper Description Size Mfg Part Number Used/Scraped TRANSDUCER, TRUWAVE [id number] 10:37 FUNES GREGORY * Used W/STOCKCOCK *[id number] 11:32 CARDIVA MEDICAL VASCADE, FR5 CLOSURE SYSTEM FR 5 Used *[id number] INTRODUCER SET, 11:17 [employer]. FR 5 [id number] *[id number] Used MICROPUNCTURE STIFF [id number] *[id number] 10:37 [employer] PACK, CCL CUSTOM * Used *[id number] 10:37 [employer] SUPPORT, ARTERIAL ADULT 52668 *[id number] Used [id number] 11:24 MEDTRONIC JL 4.0 DXTERITY CATHETER FR 5 Used *[id number] BAND, RADIAL COMPRESSION TR [id number] 11:43 Project [employer]list MEDICAL 29CM Used LARGE 29 *[id number] 10:37 Sp[employer] WIRE, EXCHANGE 260CM 3MMJ 260CM Used *[id number] PROBE COVER, STERILE [id number] 11:11 Square MEDICAL * Used ULTRASOUND W/ GEL *[id number] 10:37 NAMIC MANIFOLD, 4 PORT * Used *[id number] 10:37 NYCOMED OMNIPAQUE, 350 MG, 150ML 150ML [id number] Used [id number] 10:37 CHAMBER[employer]IN MEDICAL BLANKET,WARM AIR CCL * Used *[id number] 11:17 TERUMO MEDICAL SHEATH, FR5 TERUMO (10CM) FR 5 Used *[id number] SHEATH, FR6 TRANSRADIAL RM*[id number] 10:37 TERUMO MEDICAL FR 6 Used SLENDER 10CM *[id number] Equipment Model, Serial, Lot Number and Expiration Data Description Model Number Serial Number Lot Number Expiration Date INTRODUCER SET, [id number] 03-04-2020 MICROPUNCTURE STIFF History: Current Medications Medication Dosage/Unit Route Frequency Last Date/Time Taken ASA Beta Juvenal NORVASC Statins (any) BRILLINTA LIPITOR LISINOPRIL History: Allergies Allergy Reaction No Known Allergies History: Risk Factors Family History of Hypertension Dyslipidemia Previous [place] Previous Heart Failure Premature CAD Yes Yes No No No Prior Valve Prior PCI Prior PCIDate Prior CABG Surgery No Yes 11/22/2016 No Cerebrovascular Peripheral Artery Chronic Lung On Dialysis Diabetes Disease Disease Disease No No No No No History: Symptoms/Diagnosis Selection Items Chest pain History: CV Disease Selection Items Known CAD History: Stress Tests Stress or Imaging Studies Performed No History: Other Disease Selection Items CAD HTN History: Other Current Smoker Method Quit Packs a Day Years Used Pack Years No Cigarettes 5 Years Ago 1 15 15 Labs Hgb (g/dl) Hct (%) WBC (l/cumm) Platelets (thousands) 11.60-17.00 35.00-51.00 4.00-11.00 150.00-450.00 13.2 39.9 5.6 203 Glucose (mg/dl) BUN (mg/dl) Creatinine (mg/dl) BUN:Creatinine (1:x) 74.00-106.00 7.00-18.00 0.50-1.30 10.00-20.00 93 17 1.0 17 Na (meq/l) K (meq/l) 136.00-145.00 3.50-5.10 142 3.8 INR (PTT:PT) 0.90-1.10 0.9 CPK-MB (ng/ML) 0.50-3.60 Not Drawn Medication Medication Total Dose (Bolus/Oral) Medication Total Dosage/Unit 1% XYLOCAINE 22 mL FENTANYL 50 mcg VERSED 1 mg Medications (Bolus/Oral) Medication Time Given Dosage/Unit Administered By Reason VERSED 06/07/2017 11:07:55 AM 0.5 mg Rosas Mao RN 0.5 mg VERSED given in lab by Rosas Mao RN in Left Antecubital via Peripheral IV. Ordered by Harlan Ahmadi FENTANYL 06/07/2017 11:08:03 AM 25 mcg Rosas Mao RN 25 mcg FENTANYL given in lab by Rosas Mao RN in Left Antecubital via Peripheral IV. Ordered by Harlan Arambula 1% XYLOCAINE 06/07/2017 11:08:08 AM 2 mL Harlan Isaac 2 mL 1% XYLOCAINE given in lab by Harlan Isaac in Right Radial via Subcutaneous. 1% XYLOCAINE 06/07/2017 11:16:10 AM 20 mL Harlan Isaac 20 mL 1% XYLOCAINE given in lab by Harlan Isaac in Right Groin via Subcutaneous. VERSED 06/07/2017 11:16:53 AM 0.5 mg Rosas Mao RN 0.5 mg VERSED given in lab by Rosas Mao RN in Left Antecubital via Peripheral IV. Ordered by Harlan Ahmadi FENTANYL 06/07/2017 11:16:56 AM 25 mcg Rosas Mao RN 25 mcg FENTANYL given in lab by Rosas Mao RN in Left Antecubital via Peripheral IV. Ordered by Harlan Arabmula Medication (Drip) Medication Time Given Dosage/Unit Concentration/Unit Diluent (ml) Solutio n IV Solutions 06/07/2017 10:35:34 AM 0 mL (IV) 500 NaCl .9 Patient arrived on IV Solutions given by tammy munoz in Left Antecubital via Peripheral IV. Pump /Drip Flow = 20 ml/hr using NaCl .9. Ordered by Harlan Isaac Initial Case Assessment Cardiovascular HR Rhythm NIBP Chest Pain 66 nsr 159/93 0 Edema Present Skin color Skin None Normal Warm Dry Circulatory - Right Pulses Dorsalis Pedis Femoral Radial 2 2 2 Scale (0,1,2,3,4,d) Scale (0,1,2,3,4,d) Neurological State Oriented to time-place- Alert Moves all extremities person Respiration - General Respiration Rate SpO2 (%) (B/min) 15 97 Final Case Assessment Cardiovascular HR Rhythm NIBP Chest Pain 70 nsr 166/103 0 Edema Present Skin color Skin None Normal Warm Dry Circulatory - Right Pulses Dorsalis Pedis Femoral Radial 2 2 2 Scale (0,1,2,3,4,d) Scale (0,1,2,3,4,d) Neurological State Oriented to time-place- Alert Moves all extremities person Respiration - General Respiration Rate SpO2 (%) (B/min) 14 97 Chronological Log Time Study Chronological Log 10:35:24 Patient arrived via Bed. 10:35:24 Patient Name, D.O.B, / Armband Verified By R.N. 10:35:25 Consent signed by the physician and the patient and verified by the [facility] staff. 10:35:25 Pre-op and post- op instructions given; patient acknowledges understanding of instructions. 10:35:26 Verbal Stimulation=2 Physical Stimulation=2 Airway=2 Respiration=2 TOTAL=8. (0=absent, 1=li mited, 2=present) 10:35:26 Presedation assessment performed by Auto Wheel Alignment Specialist RN. 10:35:28 Allens test performed on the right radial and ulnar artery. POSITIVE. 10:35:29 Immediate Presedation assesment performed by physician. 10:35:30 Patient has been NPO for More than 6Hrs. 10:35:31 Skin Breakdown- none per patient 10:35:31 Patient Warmer Placed on the Table. 10:35:32 Lidia Prominences Protected 10:35:34 A # 20 IV was noted in the Antecubital (left). Grade = 0 Patient arrived on IV Solutions given by cathlab, cathlab in Left Antecubital via Peripheral IV . Pump/Drip Flow = 20 10:35:34 ml/hr using NaCl .9. Ordered by Harlan Isaca 10:35:35 History and physical on the chart or being dictated. Vitals capture started with the following parameters, Patient=Adult, Interval=5 min, Initial Pr vxysnb=654 mmHg, 10:37:29 Deflation Rate=5 mmHg, Cuff placed on Left Arm 10:38:52 HR=66 bpm, NBYK=757/98 mmhg, SpO2=95.0 %, Resp=11 B/min, Pain=0, Raquel=10, Smith=2 10:39:09 Reference ECG taken 10:43:06 HR=70 bpm, HDWE=639/93 mmhg, SpO2=96.0 %, Resp=12 B/min, Pain=0, Raquel=10, Smith=2 Assessment: Initial Case, HR=66 BPM, Rhythm=nsr, RUEY=701/93 mmhg, Chest Pain=0, Edema=None, Co carlos=Normal, Skin = Warm, Dry 10:43:22 Right Pulses: Chiki Ped=2, Femoral=2, Radial=2 Neurological: State=Alert, Ox3, GIL Respiration: Resp=15 B/min, SpO2=97 % 10:43:49 Right Radial and groin(s) prepped with 2% chlorhexidine, and draped after a 3 min. waiting time. 10:47:54 MD paged 10:47:55 MD responded 10:48:09 HR=67 bpm, ARAB=895/100 mmhg, SpO2=97.0 %, Resp=8 B/min, Pain=0, Raquel=10, Smith=2 10:48:59 Pressure channel 1 zeroed. 10:53:13 HR=72 bpm, SCWB=337/99 mmhg, SpO2=95.0 %, Resp=13 B/min, Pain=0, Raquel=10, Smith=2 10:58:12 HR=72 bpm, JXIX=738/103 mmhg, SpO2=99.0 %, Resp=13 B/min, Pain=0, Raquel=10, Smith=2 11:00:24 MD arrived. 11:00:28 Contrast Scanned 11:00:29 Immediate Presedation assesment performed by physician. 11:03:13 HR=74 bpm, WETA=666/102 mmhg, SpO2=97.0 %, Resp=14 B/min, Pain=0, Raquel=10, Smith=2 Time Out. Correct patient, correct procedure, correct physician, power injector not loaded with contrast with surgical 11:07:30 team present. Time Out Concurred by MD and individual staff in procedure. 11:07:38 Case Start 11:07:40 Verbal Stimulation=2 Physical Stimulation=2 Airway=2 Respiration=2 TOTAL=8. (0=absent, 1=li mited, 2=present) 11:07:55 0.5 mg VERSED given in lab by Rosas Mao RN in Left Antecubital via Peripheral IV. Ordere d by aHrlan Isaac. 11:08:03 25 mcg FENTANYL given in lab by Rosas Mao RN in Left Antecubital via Peripheral IV. Orde red by Harlan Isaac. 11:08:08 2 mL 1% XYLOCAINE given in lab by Harlan Isaac in Right Radial via Subcutaneous. 11:08:14 HR=67 bpm, QACE=238/98 mmhg, SpO2=93.0 %, Resp=19 B/min, Pain=0, Raquel=10, Smith=2 11:13:13 HR=73 bpm, UGJC=202/105 mmhg, SpO2=92.0 %, Resp=13 B/min, Pain=0, Raquel=10, Smith=2 11:15:32 Unable to access Right Radial Artery 11:16:10 20 mL 1% XYLOCAINE given in lab by Harlan Isaac in Right Groin via Subcutaneous. 11:16:53 0.5 mg VERSED given in lab by Rosas Mao RN in Left Antecubital via Peripheral IV. Ordere d by Harlan Isaac. 11:16:56 25 mcg FENTANYL given in lab by Rosas Mao RN in Left Antecubital via Peripheral IV. Orde red by Harlan Isaac 11:18:12 HR=71 bpm, ZEBW=280/97 mmhg, SpO2=93.0 %, Resp=12 B/min, Pain=0, Raquel=10, Smith=2 11:19:11 Access site was Right Femoral Artery. A INTRODUCER SET, MICROPUNCTURE STIFF FR 5 was advanced into the Fem Art (right) using the Perc utaneous 11:19:19 technique. A SHEATH, FR5 TERUMO (10CM) FR 5 was exchanged in the Fem Art (right). This was necessary in or marilee to 11:19:24 accomodate a larger catheter. 11:21:00 An injection in the Fem Art (right) was made through the SHEATH, FR5 TERUMO (10CM) FR 5. A JR 4.0 INFINITI CATHETER FR 5 was advanced over a wire. OMNIPAQUE, 350 MG, 150ML 150ML was us ed for 11:21:10 injections. Recorded Pressure: LV, HR=71, Condition=Condition 1 11:22:18 (Left Ventricle) LV 146/10/16 Recorded Pressure: LV, Ao, HR=73, Condition=Condition 1 11:22:32 (Left Ventricle) LV 148/7/14, (Aorta) Ao 146/80/112 Recorded Pressure: Ao, HR=65, Condition=Condition 1 11:23:15 (Aorta) Ao 137/81/105 11:23:17 HR=70 bpm, ITOL=902/92 mmhg, SpO2=93.0 %, Resp=12 B/min, Pain=0, Raquel=10, Smith=2 11:23:23 The RCA was injected and visualized at various angles. OMNIPAQUE, 350 MG, 150ML 150ML used . After removing the current catheter a JL 4.0 DXTERITY CATHETER FR 5 was advanced over a WIRE, E XCHANGE 260CM 11:23:57 3MMJ 260CM. 11:25:57 The LCA was injected and visualized at various angles. OMNIPAQUE, 350 MG, 150ML 150ML used . 11:28:16 HR=74 bpm, EKJA=901/100 mmhg, SpO2=92.0 %, Resp=18 B/min, Pain=0, Raquel=10, Smith=2 11:31:16 Catheter was removed 11:32:04 VASCADE, FR5 CLOSURE SYSTEM FR 5 placement in the Fem Art (right) 11:33:15 HR=72 bpm, SWMC=356/103 mmhg, SpO2=94.0 %, Resp=13 B/min, Pain=0, Raquel=10, Smith=2 11:36:45 Case End Assessment: Final Case, HR=70 BPM, Rhythm=nsr, BLOD=104/103 mmhg, Chest Pain=0, Edema=None, Col or=Normal, Skin = Warm, Dry 11:36:48 Right Pulses: Chiki Ped=2, Femoral=2, Radial=2 Neurological: State=Alert, Ox3, GIL Respiration: Resp=14 B/min, SpO2=97 % 11:37:10 Catheter(s) removed without difficulty 11:37:21 Sterile dressing applied to site 11:37:22 No case complications noted. 11:37:23 Cine recording checked. 11:37:25 Bedside Report will be given. 11:37:28 Verbal Stimulation=2 Physical Stimulation=2 Airway=2 Respiration=2 TOTAL=8. (0=absent, 1=li mited, 2=present) 11:37:34 A Left Heart Cath was performed. 11:38:16 HR=75 bpm, COVL=467/108 mmhg, SpO2=99.0 %, Resp=9 B/min, Pain=0, Raquel=10, Smith=2 Radial Compression Device Used. 5 mLs of air placed in BAND, RADIAL COMPRESSION TR LARGE 29 29C M. Affected 11:40:51 hand ~O2 SATURATION~ % O2 saturation. 11:43:15 HR=69 bpm, GRPJ=302/104 mmhg, SpO2=96.0 %, Resp=7 B/min, Pain=0, Raquel=10, Smith=2 11:49:14 Vitals capture stopped. End Study - Contrast Media Used In Study Contrast Total Opened (mL) Total Used (mL) Total Wasted (mL) Omnipaque 50 50 0 End Study - Maximum Contrast Load Max Contrast Load (mL) 473.0 End Study - Radiation Exposure Fluoro Time (minutes) 1.6 End Study - Patient Disposition Complications Transferred To Interventional Outcome No Auto Wheel Alignment Specialist Holding successful
[2017-06-07] MEDS ORDERED: METO25TA3 PO (12:08)
[2017-06-07] MEDS ORDERED: ONDANSETRON HCL 4 MG/2 ML VIAL IV PUSH PRN (12:15)
[2017-06-07] MEDS ORDERED: MISC INFORMATION XX ONE (12:15)
[2017-06-07] MEDS ORDERED: oxyCODONE/ACETAMINOPHEN 5 MG/325 MG TAB PO PRN ×2 (12:15)
[2017-06-07] MEDS ORDERED: SODIUM CHLOR 0.9% 250 ML INJ 250 ML IV PRN (12:15)
--- NOTE | 2017-06-07 12:24 | MA ---
cc: Halran Isaac DO DATE: 06/07/2017 PROCEDURE: Left heart catheterization, coronary angiogram, moderate sedation 30 minutes. PREPROCEDURE DIAGNOSIS: Chest pain. POSTPROCEDURE DIAGNOSIS: Coronary artery disease, nonobstructive in nature. MEDICATIONS: Versed 1 mg, fentanyl 50 mcg. CONTRAST USED: 50 mL. FLUOROSCOPY: 1.6 minutes. MODERATE SEDATION: 30 minutes. FRAILTY SCORE: 2. ESTIMATED BLOOD LOSS: 10 mL. PROCEDURAL SUMMARY: Mauri Damon is a pleasant 57-year-old male, whom I see in the office and presented due to chest pain. Chest pain was similar to when he needed stenting before and so he was recommended cardiac catheterization. The risks, benefits and alternatives were explained to him and he consented to such. He was brought to the lab and prepped in the usual sterile fashion. I attempted right radial access using ultrasound guidance, but was unable to obtain access. The right femoral artery was accessed using a modified Seldinger technique and placement of a 5-Prydeinig sheaths. This is easily aspirated and flushed. A JR4 was advanced over a J-wire to the ascending aorta and across the aortic valve for measurement of left ventricular pressure. This was pulled back across the aortic valve showing no significant gradient of aortic stenosis. JR4 was used for selective angiography of the right coronary artery system. This was exchanged out for a JL4 which was used for selective angiography of the left coronary artery system. JL4 was removed over a J wire. The arteriotomy site was closed with a Vascade device. The patient left the catheter builder cardiovascularly stable. ANGIOGRAPHIC SUMMARY: LEFT MAIN: Normal-sized vessel with adequate reflux. It trifurcates into an LAD, circumflex, and ramus. LAD: Normal-sized vessel with 30% disease in the midportion. Distal to this a stent is patent with good flow and no in-stent restenosis. It gives off 2 small diagonals with the first having diffuse 40% disease and the second with no significant disease. RAMUS: Normal-sized vessel with stent patent in the mid-portion. There is mild in-stent restenosis of 20-30%. LEFT CIRCUMFLEX: Normal-sized vessel with mild luminal irregularity throughout the proximal portion. Stent in the midportion of the obtuse marginal is patent. Distally, the obtuse marginal separates into an upper and lower branch with the lower branch being larger and no significant disease and the upper branch being about 1.5 mm with 70% ostial disease. RCA: Normal-sized vessel with mild luminal irregularities throughout. Stent noted in the PDA is patent with no significant restenosis. LVEDP : 14. IMPRESSIONS: 1. Chest pain concerning for coronary insufficiency. 2. Coronary artery disease with history of coronary artery stenting as above and no significant lesions at this time. RECOMMENDATIONS: 1. Mr. Damon appears to have no significant lesions of his coronary anatomy. 2. He will recommended continued medical therapy. 3. He would like to come off Imdur due to his significant headaches with it and so he will continue on Norvasc and we will attempt to increase his beta ludmila therapy. Thank you for allowing me to see Mauri Damon. If there are any questions, please do not hesitate to call. DO KRYSTAL Smiley/SHANNON , 11:59 AM , 12:23 PM
--- NOTE | 2017-06-07 19:52 | EKG ---
Date Performed: 06/07/2017 Time Performed: 09:09:30 PTAGE: 57 years EKG: Sinus rhythm with borderline 1st degree A-V block Possible inferior infarct - age undetermined Abnormal ECG Since the PREVIOUS TRACING , no significant change noted PREVIOUS TRACIN11/22/2016 @ 0822 DOCTOR: Praveen Enriquez Interpretating Date/Time 06/07/2017 19:52:13
== END 2017-06-07 16:36 | disposition home or self-care (01) ==
LOC: HDOC 08:02 → HDIC 08:03 → HDOC 16:36
PROVIDERS: ATTEND Nuclear Medicine Nuclear Cardiology
DX: I25.110 Atherosclerotic heart disease of native coronary artery with unstable angina pectoris (principal); I10 Essential (primary) hypertension; E78.5 Hyperlipidemia, unspecified; Z95.5 Presence of coronary angioplasty implant and graft
CPT/HCPCS: 80048; 85025; 85610; 85730; 93005; 93458; C1760; C1769; C1893; G0269; J1644; J2250; J3010; J7030; Q9967

== ENCOUNTER 2017-06-20 13:05 | Emergency (ER) | payer OTHER ==
[2017-06-20 13:26] VITALS: BP 148/91; PULSE 71; RESP 20; TEMP 97.4; O2SAT 98
--- NOTE | 2017-06-20 14:15 | PD ---
HPI . Swollen lip Chief Complaint: Allergic/Adverse Reaction Time Seen by Provider: 13:36 Travel History International Travel<30 days: No Contact w/Intl Traveler<30days: No Traveled to known affect area: No History of Present Illness HPI Patient presents with chief complaint of a swollen right upper lip. Onset was this morning. Symptoms have continued since that time. They are not worsening. He does not have any swelling of the tongue or oropharynx. He is on lisinopril. He has been on lisinopril for about a year. Location: Right upper lip Onset: This morning Progression: Continuous Context: Lisinopril Associated symptoms: None PFSH Past Medical History Hx Anticoagulant Therapy: Yes Arthritis: No Asthma: No Autoimmune Disease: No Anxiety: No Depression: No Heart Rhythm Problems: No Cancer: No Cardiac Catheterization: Yes Cardiovascular Problems: Yes High Cholesterol: Yes Chemotherapy: No Chest Pain: No Congestive Heart Failure: No COPD: No Cerebrovascular Accident: No Diabetes: No Diminished Hearing: No Endocrine: No Gastrointestinal Disorders: No GERD: No Glaucoma: No Genitourinary: No Hepatitis: No Hiatal Hernia: No Hypertension: Yes Immune Disorder: No Kidney Stones: No Musculoskeletal: No Neurologic: No Psychiatric: No Reproductive: No Respiratory: No (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 SMOKER) Integumentary: No Migraines: No Radiation Therapy: No Renal Failure: No Seizures: No Sickle Cell Disease: No Sleep Apnea: No Thyroid Disease: No Ulcer: No Tetanus Vaccination: < 5 Years Influenza Vaccination: Yes Past Surgical History Abdominal Surgery: No AICD: No Arteriovenous Shunt: No Cardiac Surgery: No Coronary Artery Bypass Graft: No Coronary Stent: Yes (x's 3 08/2016) Ear Surgery: No Endocrine Surgery: No Eye Surgery: No Genitourinary Surgery: No Gynecologic Surgery: No Insulin Pump: No Joint Replacement: No Oral Surgery: No Pacemaker: No Thoracic Surgery: No Other Surgery: Yes Social History Alcohol Use: No Tobacco Use: No Substance Use: No Allergies-Medications (Allergen,Severity, Reaction): Coded Allergies: No Known Allergies (Verified Adverse Reaction, Unknown, 06/20/17) Reported Meds & Prescriptions Reported Meds & Active Scripts Active Metoprolol Tartrate 25 Mg Tab 50 Mg PO Q12HR 30 Days Lipitor (Atorvastatin Calcium) 40 Mg Tab 80 Mg PO HS Nitroglycerin SL (Nitroglycerin) 0.4 Mg Subl 0.4 Mg SL DIRECTED PRN ONE TABLET UNDER THE TONGUE NEEDED FOR CHEST PAIN, MAY REPEAT EVERY FIVE MINUTES FOR A TOTAL OF 3 DOSES OR CALL 911 IF NO RELIEF Brilinta (Ticagrelor) 90 Mg Tab 90 Mg PO BID Norvasc (Amlodipine Besylate) 10 Mg Tab 10 Mg PO DAILY Aspirin EC (Aspirin) 81 Mg Tabdr 81 Mg PO DAILY Lisinopril 20 Mg Tab 20 Mg PO DAILY Reported Mirtazapine 15 Mg Tab 15 Mg PO HS Review of Systems Except as stated in HPI: all other systems reviewed are Neg Physical Exam Narrative GENERAL: Awake and alert and in no acute distress. SKIN: Warm and dry. HEAD: Normocephalic/atraumatic. EYES: Pupils are equal. Extraocular movements are intact. ENT: Right upper lip is swollen. Tongue and oropharynx are not swollen. NECK: Normal range of motion. CARDIOVASCULAR: Regular rate and rhythm. RESPIRATORY: Nonlabored respirations. MUSCULOSKELETAL: Atraumatic. NEUROLOGICAL: Nonfocal. PSYCHIATRIC: Appropriate mood and affect. Data Data Last Documented VS Vital Signs Date Time Temp Pulse Resp B/P (MAP) Pulse Ox O2 Delivery O2 Flow Rate FiO2 06/20/17 13:26 97.4 71 20 148/91 (110) 98 MDM Medical Decision Making Medical Screen Exam Complete: Yes Emergency Medical Condition: Yes Differential Diagnosis Differential diagnosis of angioedema includes not limited to idiopathic angioedema, medication-related angioedema Narrative Course This patient presents with angioedema of his right upper lip. He is on lisinopril. He is not having any airway issues. Symptom onset has been 4-6 hours ago and is not worsening. He is stable for discharge to home. I queried up to date to confirm that there is no treatment for this other than discontinuation of the lisinopril. Symptoms can be expected to last 3-5 days. He should return if he develops any concerns for airway compromise. Diagnosis Primary Impression: Angioedema Qualified Codes: T78.3XXA - Angioneurotic edema, initial encounter Patient Instructions: Angioedema (ED), General Instructions Additional Instructions: Stop the lisinopril. Contact your doctor for an alternative medication. You can expect that the swelling will start to go down in 3-5 days. It should not get any worse at this point. The swelling generally starts acutely and peaks within a few hours, plateaus and then starts to improve. Unfortunately, there are no medications to make it better faster. Return here if you have any concerns about your ability to breathe. If you start to feel like her throat is swollen or that the back of your tongue is swollen, you should return here right away. Disposition: 01 DISCHARGE HOME Condition: Stable Leydi Barnett MD Jun 20, 2017 14:15
== END 2017-06-20 14:45 | disposition home or self-care (01) ==
LOC: NEPD 13:05
DX: T78.3XXA Angioneurotic edema, initial encounter (principal); R22.0 Localized swelling, mass and lump, head; E78.00 Pure hypercholesterolemia, unspecified; I10 Essential (primary) hypertension; Z87.891 Personal history of nicotine dependence; Z79.82 Long term (current) use of aspirin; Z79.899 Other long term (current) drug therapy
CPT/HCPCS: 99281

== ENCOUNTER 2017-07-17 20:37 | Observation (INO) | payer OTHER ==
--- NOTE | 2017-07-17 20:51 | PD ---
HPI Chief Complaint: Chest pain Time Seen by Provider: 20:49 Travel History International Travel<30 days: No Contact w/Intl Traveler<30days: No Traveled to known affect area: No History of Present Illness HPI 57-year-old male came to the emergency room with left-sided chest pain that started 1 hour ago. Patient has significant history of coronary artery disease and had 2-3 stents put in last November. He took 3 nitro's [id number] within 20 minutes. He says after that his blood pressure dropped to 100. Currently the pain is 2 out of 10 and hence he is here. His fish drier is Dr. Isaac. Patient took one baby aspirin this morning. He takes Brilinta for the stents. Vital signs were stable. No radiation of the pain. He describes the pain to be pleuritic. FORMERLY [facility], [facility]–1983 Past Medical History Narrative Medical List of his past medical, surgical, social and family history is reviewed from the nursing note. Hx Anticoagulant Therapy: Yes Arthritis: No Asthma: No Autoimmune Disease: No Anxiety: No Depression: No Heart Rhythm Problems: No Cancer: No Cardiac Catheterization: Yes Cardiovascular Problems: Yes High Cholesterol: Yes Chemotherapy: No Chest Pain: No Congestive Heart Failure: No COPD: No Cerebrovascular Accident: No Diabetes: No Diminished Hearing: No Endocrine: No Gastrointestinal Disorders: No GERD: No Glaucoma: No Genitourinary: No Hepatitis: No Hiatal Hernia: No Hypertension: Yes Immune Disorder: No Kidney Stones: No Musculoskeletal: No Neurologic: No Psychiatric: No Reproductive: No Respiratory: No (FORMER SMOKER) Integumentary: No Migraines: No Radiation Therapy: No Renal Failure: No Seizures: No Sickle Cell Disease: No Sleep Apnea: No Thyroid Disease: No Ulcer: No Past Surgical History Abdominal Surgery: No AICD: No Arteriovenous Shunt: No Cardiac Surgery: No Coronary Artery Bypass Graft: No Coronary Stent: Yes (x's 3 08/2016) Ear Surgery: No Endocrine Surgery: No Eye Surgery: No Genitourinary Surgery: No Gynecologic Surgery: No Insulin Pump: No Joint Replacement: No Oral Surgery: No Pacemaker: No Thoracic Surgery: No Other Surgery: Yes Social History Alcohol Use: No Tobacco Use: No Substance Use: No Allergies-Medications (Allergen,Severity, Reaction): Coded Allergies: lisinopril (Verified Allergy, Severe, Swelling, 07/17/17) states he is not allergic Comments List of his allergies reviewed from the nursing note Reported Meds & Prescriptions Reported Meds & Active Scripts Active Metoprolol Tartrate 25 Mg Tab 50 Mg PO Q12HR 30 Days Lipitor (Atorvastatin Calcium) 40 Mg Tab 80 Mg PO HS Nitroglycerin SL (Nitroglycerin) 0.4 Mg Subl 0.4 Mg SL DIRECTED PRN ONE TABLET UNDER THE TONGUE NEEDED FOR CHEST PAIN, MAY REPEAT EVERY FIVE MINUTES FOR A TOTAL OF 3 DOSES OR CALL 911 IF NO RELIEF Brilinta (Ticagrelor) 90 Mg Tab 90 Mg PO BID Norvasc (Amlodipine Besylate) 10 Mg Tab 10 Mg PO DAILY Aspirin EC (Aspirin) 81 Mg Tabdr 81 Mg PO DAILY Lisinopril 20 Mg Tab 20 Mg PO DAILY Reported Mirtazapine 15 Mg Tab 15 Mg PO HS Narrative Medication List of his home medications reviewed from the nursing note. Review of Systems Except as stated in HPI: all other systems reviewed are Neg Cardiovascular: Positive: Chest Pain or Discomfort Physical Exam Narrative GENERAL: Awake, alert, mild distress SKIN: Focused skin assessment warm/dry. HEAD: Atraumatic. Normocephalic. EYES: Pupils equal and round. No scleral icterus. No injection or drainage. ENT: No nasal bleeding or discharge. Mucous membranes pink and moist. NECK: Trachea midline. No JVD. CARDIOVASCULAR: Regular rate and rhythm. No murmur appreciated. RESPIRATORY: No accessory muscle use. Clear to auscultation. Breath sounds equal bilaterally. GASTROINTESTINAL: Abdomen soft, non-tender, nondistended. Hepatic and splenic margins not palpable. MUSCULOSKELETAL: No obvious deformities. No clubbing. No cyanosis. No edema. NEUROLOGICAL: Awake and alert. No obvious cranial nerve deficits. Motor grossly within normal limits. Normal speech. PSYCHIATRIC: Appropriate mood and affect; insight and judgment normal. Data Data Last Documented VS Vital Signs Date Time Temp Pulse Resp B/P (MAP) Pulse Ox O2 Delivery O2 Flow Rate FiO2 07/17/17 23:00 66 20 129/68 (88) 98 07/17/17 21:37 Nasal Cannula 2.00 Orders Orders Electrocardiogram (07/17/17 20:59) Basic Metabolic Panel (Bmp) (07/17/17 20:59) Complete Blood Count With Diff (07/17/17 20:59) D-Dimer (07/17/17 20:59) Magnesium (Mg) (07/17/17 20:59) Prothrombin Time / Inr (Pt) (07/17/17 20:59) Troponin I (07/17/17 20:59) Ecg Monitoring (07/17/17 20:59) Bilateral Bp Monitoring (07/17/17 20:59) Iv Access Insert/Monitor (07/17/17 20:59) Oximetry (07/17/17 20:59) Oxygen Administration (07/17/17 20:59) Aspirin Chew (Aspirin Chew) (07/17/17 21:00) Sodium Chloride 0.9% Flush (Ns Flush) (07/17/17 21:00) Sodium Chlorid 0.9% 500 Ml Inj (Ns 500 M (07/17/17 21:00) Chest, Pa & Lat (07/17/17 20:59) Ct Pulmonary Angiogram (07/17/17 ) Iohexol 350 Inj (Omnipaque 350 Inj) (07/17/17 23:20) Place In Observation (07/17/17 ) Vital Signs (Adult) Q4H (07/17/17 23:42) Activity Oob Ad Nicole (07/17/17 23:42) [employer] 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 .CONTINUOUS (07/17/17 23:42) Sodium Chloride 0.9% Flush (Ns Flush) (07/17/17 23:45) Sodium Chloride 0.9% Flush (Ns Flush) (07/18/17 09:00) Acetaminophen (Tylenol) (07/17/17 23:45) Troponin I (07/17/17 23:42) Troponin I (07/18/17 05:42) Electrocardiogram (07/17/17 23:42) Electrocardiogram (07/18/17 05:42) Scd Bilateral/Knee High SIDDHARTH.BID (07/17/17 23:42) Naloxone Inj (Narcan Inj) (07/17/17 23:45) Magnesium Hydroxide Liq (Milk Of Magnesi (07/17/17 23:45) Sennosides (Senokot) (07/17/17 23:45) Bisacodyl Supp (Dulcolax Supp) (07/17/17 23:45) Lactulose Liq (Lactulose Liq) (07/17/17 23:45) Labs Laboratory Tests Test 07/17/17 01:03 07/17/17 20:55 07/17/17 21:35 Troponin I LESS THAN 0.02 NG/ML LESS THAN 0.02 NG/ML White Blood Count 8.6 TH/MM3 Red Blood Count 4.76 MIL/MM3 Hemoglobin 13.3 GM/DL Hematocrit 39.6 % Mean Corpuscular Volume 83.2 FL Mean Corpuscular Hemoglobin 28.0 PG Mean Corpuscular Hemoglobin Concent 33.7 % Red Cell Distribution Width 14.3 % Platelet Count 338 TH/MM3 Mean Platelet Volume 9.1 FL Neutrophils (%) (Auto) 59.8 % Lymphocytes (%) (Auto) 27.9 % Monocytes (%) (Auto) 7.3 % Eosinophils (%) (Auto) 2.0 % Basophils (%) (Auto) 3.0 % Neutrophils # (Auto) 5.1 TH/MM3 Lymphocytes # (Auto) 2.4 TH/MM3 Monocytes # (Auto) 0.6 TH/MM3 Eosinophils # (Auto) 0.2 TH/MM3 Basophils # (Auto) 0.3 TH/MM3 CBC Comment DIFF FINAL Differential Comment Prothrombin Time 10.4 SEC Prothromb Time International Ratio 1.0 RATIO D-Dimer Quantitative (PE/DVT) 2.50 MG/L FEU Blood Urea Nitrogen 19 MG/DL Creatinine 1.20 MG/DL Random Glucose 93 MG/DL Calcium Level 9.0 MG/DL Magnesium Level 2.4 MG/DL Sodium Level 140 MEQ/L Potassium Level 3.6 MEQ/L Chloride Level 110 MEQ/L Carbon Dioxide Level 23.9 MEQ/L Anion Gap 6 MEQ/L Estimat Glomerular Filtration Rate 76 ML/MIN [facility] Medical Decision Making Medical Screen Exam Complete: Yes Emergency Medical Condition: Yes Medical Record Reviewed: Yes Interpretation(s) Twelve-lead EKG was reviewed by me. Normal sinus rhythm, normal axis, nonspecific ST-T wave changes. Heart rate of 73 bpm. Differential Diagnosis ACS, non-STEMI, PE Narrative Course 11:20 PM blood test results are back and d-dimer was elevated. Troponin is within normal limits. I have ordered a CT pulmonary angiogram. Awaiting for the read by the radiologist. If CT is negative for PE patient will be admitted for chest pain rule out ACS. 11:[address] is negative for PE. Awaiting for the hospitalist to call back for admission to the chest pain center. Procedures EKG Prior to Arrival: No Diagnosis Primary Impression: Chest pain Qualified Codes: R07.9 - Chest pain, unspecified Admitting Information Admitting Physician Requests: Observation Yanet Martinez MD July 17, 2017 20:51
[2017-07-17] MEDS ORDERED: SODIUM CHLORID 0.9% 500 ML INJ 500 ML IV ONE (21:00)
[2017-07-17] MEDS ORDERED: ASPIRIN 81 MG CHEW TAB PO ONE (21:00)
[2017-07-17] MEDS ORDERED: SODIUM CHLORIDE 0.9% FLUSH 10 ML FLUSH IVF PRN (21:00)
[2017-07-17 21:05] VITALS: BP_SYST 117; BP_SYST 121; BP_DIAS 68; BP_DIAS 72; PULSE 74; RESP 20; O2SAT 96
[2017-07-17 21:06] VITALS: BP 125/73; PULSE 74; RESP 20; O2SAT 96
[2017-07-17 21:10] LABS: AUTOMATED NEUTROPHIL # 5.1 TH/MM3 (1.8-7.7); BASOPHIL # 0.3 TH/MM3 (0-0.2); EOSINOPHIL # 0.2 TH/MM3 (0-0.4); HEMATOCRIT 39.6 % (39.0-51.0); HEMOGLOBIN 13.3 GM/DL (13.0-17.0); LYMPH % 27.9 % (9.0-44.0); LYMPHOCYTE # 2.4 TH/MM3 (1.0-4.8); MEAN CELL VOLUME 83.2 FL (80.0-100.0); MEAN CORPUSCULAR HGB CONC 33.7 % (32.0-36.0); MEAN PLATELET VOLUME 9.1 FL (7.0-11.0); MONO % 7.3 % (0.0-8.0); MONOCYTE # 0.6 TH/MM3 (0-0.9); NEUT % 59.8 % (16.0-70.0); PLATELET COUNT 338 TH/MM3 (150-450); RED BLOOD COUNT 4.76 MIL/MM3 (4.50-5.90); RED CELL DISTRIBUTION WIDTH 14.3 % (11.6-17.2); WHITE BLOOD COUNT 8.6 TH/MM3 (4.0-11.0)
[2017-07-17 21:29] LABS: PROTHROMBIN TIME - PATIENT 10.4 SEC (9.8-11.6)
[2017-07-17 21:42] LABS: D-DIMER 2.5 MG/L FEU (0.00-0.50)
[2017-07-17 21:48] LABS: CHLORIDE 110 MEQ/L (98-107); SODIUM (NA) 140 MEQ/L (136-145)
[2017-07-17 21:51] LABS: BICARBONATE 23.9 MEQ/L (21.0-32.0); BLOOD UREA NITROGEN 19 MG/DL (7-18); GLUCOSE,RANDOM 93 MG/DL (74-106); MAGNESIUM 2.4 MG/DL (1.5-2.5)
[2017-07-17 21:54] LABS: GLOMERULAR FILTRATION RATE 76 ML/MIN (>89)
[2017-07-17 21:59] LABS: TROPONIN I LESS THAN 0.02 NG/ML (0.02-0.05)
[2017-07-17 22:00] VITALS: BP 133/68; PULSE 66; RESP 20; O2SAT 98
--- NOTE | 2017-07-17 22:06 | RADRPT ---
EXAM DATE: 07/17/2017 10:02 PM EDT AGE/SEX: 57 years / Male INDICATIONS: Chest pain starting today CLINICAL DATA: This is the patient's initial encounter. Patient reports that signs and symptoms have been present for 1 day and indicates a pain score of 2/10. MEDICAL/SURGICAL HISTORY: Hypercholesterolemia. Hypertension. Coronary artery stent. COMPARISON: [facility], CHEST PA & LAT, 07/06/2014. . FINDINGS: PA and lateral views of the chest demonstrate the lungs to be symmetrically aerated without evidence of mass, infiltrate or effusion. The cardiomediastinal contours are unremarkable. Osseous structures are intact. CONCLUSION: The lungs are clear. Electronically signed by: Gigi Bryson MD 07/17/2017 10:05 PM EDT
[2017-07-17 23:00] VITALS: BP 129/68; PULSE 66; RESP 20; O2SAT 98
[2017-07-17] MEDS ORDERED: IOHEXOL 350 MG/ML 10 ML VIAL (for RAD DIAG) IVCONTRAST ONE (23:20)
--- NOTE | 2017-07-17 23:21 | RADRPT ---
EXAM DATE: 07/17/2017 11:15 PM EDT AGE/SEX: 57 years / Male INDICATIONS: Intermittent left sided chest pain. CLINICAL DATA: This is the patient's initial encounter. Patient reports that signs and symptoms have been present for 1 day and indicates a pain score of 0/10. MEDICAL/SURGICAL HISTORY: Hypertension. . Coronary stents RADIATION DOSE: 19 CTDI (mGy) COMPARISON: [facility], CT PULMONARY ANGIOGRAM, 08/22/2016. . TECHNIQUE: Volumetric scanning was performed using a multi-row detector CT scanner during bolus infu ella of 65 ml Omnipaque 350 (iohexol) nonionic water-soluble contrast as a single exam dose. The sri a was post processed with a variety of visualization algorithms including full volume maximum intensi ty projection and sliding thin slab reformation. Using automated exposure control and adjustment of the mA and/or kV according to patient size, radiation dose was kept as low as reasonably achievable t o obtain optimal diagnostic quality images. FINDINGS: Pulmonary Arteries: No filling defects are seen in the pulmonary arteries out to the subsegmental ve ssels. The left and right pulmonary arteries are normal in diameter. Lung: No infiltrates seen. Effusion: None. Mediastinum: No evidence of mediastinal or hilar adenopathy. Coronary artery calcifications are pres ent. There is a small hiatal hernia. Other: The axilla is unremarkable. CONCLUSION: 1. No evidence of pulmonary embolism. Small hiatal hernia. Mild coronary artery calcifications. Electronically signed by: Brian Ferrera MD 07/17/2017 11:20 PM EDT
[2017-07-17] MEDS ORDERED: SENNOSIDES 8.6 MG TAB PO PRN (23:45)
[2017-07-17] MEDS ORDERED: MAGNESIUM HYDROXIDE SUSP 30 ML CUP PO PRN (23:45)
[2017-07-17] MEDS ORDERED: SODIUM CHLORIDE 0.9% FLUSH 10 ML FLUSH IV FLUSH PRN (23:45)
[2017-07-17] MEDS ORDERED: LACTULOSE SYRUP 20 GM/30 ML CUP PO PRN (23:45)
[2017-07-17] MEDS ORDERED: NALOXONE HCL 0.4 MG/ML AMP IV PUSH PRN (23:45)
[2017-07-17] MEDS ORDERED: BISACODYL 10 MG SUPP RECTAL PRN (23:45)
[2017-07-17] MEDS ORDERED: ACETAMINOPHEN 325 MG TAB PO PRN (23:45)
[2017-07-18] VITALS (8 sets, daily range): BP systolic 118–140; BP diastolic 66–78; PULSE 70–86; RESP 16–20; TEMP 96.3–97.4; O2SAT 97–98
[2017-07-18] MEDS ORDERED: LISINOPRIL 20 MG TAB PO SCH (09:00)
[2017-07-18] MEDS ORDERED: ASPIRIN EC 81 MG TABEC PO SCH (09:00)
[2017-07-18] MEDS ORDERED: SODIUM CHLORIDE 0.9% FLUSH 10 ML FLUSH IV FLUSH SCH (09:00)
[2017-07-18] MEDS ORDERED: METOPROLOL TARTRATE 50 MG TAB PO SCH (09:00)
[2017-07-18] MEDS ORDERED: PNEUMOCOCCAL POLYVALENT INJ 25 MCG/0.5 ML SYR IM ONE (09:00)
[2017-07-18] MEDS ORDERED: TICAGRELOR 90 MG TAB PO SCH (09:00)
--- NOTE | 2017-07-18 11:29 | HHI.HP ---
[facility] Service [place] [place] [facility] Primary Care Physician Ozzy Martinez III, MD Admission Diagnosis Chest pain, rule out ACS Diagnoses: (1) Chest pain Diagnosis: Principal Chief Complaint: Chest pain Travel History International Travel<30 Days: No Contact w/Intl Traveler <30 Da: No Traveled to Known Affected Are: No History of Present Illness Written by Man Asif, acting as scribe for Dr. Guadalupe on 07/18/17 at 11: 25. 57-year-old male with known history of hypertension, coronary artery disease who presented to the hospital because of chest discomfort. Patient states that he was normal state of health yesterday and he moved to grass and then when he started grilling some chicken he started developing a left sided chest discomfort which she describes as a sharp stabbing type sensation that was a 5/ 10 on pain scale. He states that is worse whenever he takes a deep breath. He denied any radiation of pain to his neck, back, shoulder, arm. Denied any nausea, vomiting, lightheadedness, dizziness. He did take a series of 3 nitroglycerin with only mild improvement of his chest discomfort. Because the patient has significant coronary artery disease. He had recent cardiac catheterization done a month ago which showed no significant lesions of his coronary anatomy. Patient has follow-up with Dr. Isaac on regular basis and just saw him 2 weeks ago. Patient presented emergency department and had workup done which did not indicate any acute abnormality. Troponins were negative, EKGs were unremarkable. There is recommended by the ER physician that patient be observed in the chest pain center. Review of Systems Cardiovascular: COMPLAINS OF: Chest pain Except as stated in HPI: all other systems reviewed are Neg Past Family Social History Past Medical History Hypertension Coronary artery disease Anxiety Past Surgical History Cardiac catheterizations Low back surgery Reported Medications Reported Meds & Active Scripts Active Metoprolol Tartrate 25 Mg Tab 50 Mg PO Q12HR 30 Days Lipitor (Atorvastatin Calcium) 40 Mg Tab 80 Mg PO HS Nitroglycerin SL (Nitroglycerin) 0.4 Mg Subl 0.4 Mg SL DIRECTED PRN ONE TABLET UNDER THE TONGUE NEEDED FOR CHEST PAIN, MAY REPEAT EVERY FIVE MINUTES FOR A TOTAL OF 3 DOSES OR CALL 911 IF NO RELIEF Brilinta (Ticagrelor) 90 Mg Tab 90 Mg PO BID Norvasc (Amlodipine Besylate) 10 Mg Tab 10 Mg PO DAILY Aspirin EC (Aspirin) 81 Mg Tabdr 81 Mg PO DAILY Lisinopril 20 Mg Tab 20 Mg PO DAILY Reported Mirtazapine 15 Mg Tab 15 Mg PO HS Allergies: Coded Allergies: lisinopril (Verified Allergy, Severe, Swelling, 07/17/17) states he is not allergic Family History Reviewed is significant for mother at age 52 from heart attack, Social History Patient quit smoking 4 years ago, prior to that 1 pack of cigarettes last him 3 days. Denies any alcohol or illicit drugs Physical Exam Vital Signs Vital Signs Date Time Temp Pulse Resp B/P (MAP) Pulse Ox O2 Delivery O2 Flow Rate FiO2 07/18/17 08:36 96.3 79 16 129/72 (91) 97 07/18/17 04:10 97.4 78 20 118/76 (90) 97 07/18/17 02:23 97.4 78 20 118/76 (90) 97 07/18/17 02:03 76 20 140/76 (97) 98 07/18/17 01:00 74 18 132/66 (88) 98 07/18/17 00:00 76 20 132/76 (94) 98 07/17/17 23:00 66 20 129/68 (88) 98 07/17/17 22:00 66 20 133/68 (89) 98 07/17/17 21:37 68 20 97 Nasal Cannula 2.00 07/17/17 21:06 97 Nasal Cannula 2.00 07/17/17 21:06 74 20 125/73 (90) 96 07/17/17 21:05 74 20 121/72 (88) 96 Room Air 117/68 (84) Physical Exam GENERAL: Well-developed, well-nourished, in no acute distress. alert and orientated HEENT: Head is normocephalic without any lesions or masses noted. Facial features are symmetric. Eyes: Pupils equal round reactive to light. Extraocular muscles are intact. Conjunctivae were clear. Oropharyngeal: Pharynx without any erythema edema. Tongue is midline without deviation. Buccal mucosa is moist without any masses or lesions NECK: Supple without any masses. Trachea midline no deviation. No JVD, no bruits are appreciated CARDIAC: Regular rhythm, regular rate. S1/S2 are heard. No murmurs gallops or rubs. LUNGS: Clear to auscultation bilaterally. No wheeze, rhonchi or rales. No use of accessory muscles on inspiration or expiration. ABDOMEN: Soft, nontender. Nondistended. Bowel sounds heard in all 4 quadrants. No organomegaly or masses. Negative rebound, negative guarding EXTREMITIES: No edema, pulses are equal bilaterally. No cyanosis or clubbing NEUROLOGY: Mood and affect appear appropriate. Cranial nerves II through XII grossly intact. Muscle strength 5/5 in upper and lower extremities bilaterally. Deep tendon reflexes are 2+ in upper and lower extremities bilaterally. Laboratory Laboratory Tests Test 07/17/17 20:55 07/17/17 21:35 07/18/17 05:25 White Blood Count 8.6 Red Blood Count 4.76 Hemoglobin 13.3 Hematocrit 39.6 Mean Corpuscular Volume 83.2 Mean Corpuscular Hemoglobin 28.0 Mean Corpuscular Hemoglobin Concent 33.7 Red Cell Distribution Width 14.3 Platelet Count 338 Mean Platelet Volume 9.1 Neutrophils (%) (Auto) 59.8 Lymphocytes (%) (Auto) 27.9 Monocytes (%) (Auto) 7.3 Eosinophils (%) (Auto) 2.0 Basophils (%) (Auto) 3.0 Neutrophils # (Auto) 5.1 Lymphocytes # (Auto) 2.4 Monocytes # (Auto) 0.6 Eosinophils # (Auto) 0.2 Basophils # (Auto) 0.3 CBC Comment DIFF FINAL Differential Comment Prothrombin Time 10.4 Prothromb Time International Ratio 1.0 D-Dimer Quantitative (PE/DVT) 2.50 Blood Urea Nitrogen 19 Creatinine 1.20 Random Glucose 93 Calcium Level 9.0 Magnesium Level 2.4 Sodium Level 140 Potassium Level 3.6 Chloride Level 110 Carbon Dioxide Level 23.9 Anion Gap 6 Estimat Glomerular Filtration Rate 76 Troponin I LESS THAN 0.02 LESS THAN 0.02 Result Diagram: 07/17/17205407/17/172134 Imaging Last Impressions Chest X-Ray 07/17/172058 Signed Impressions: CONCLUSION: The lungs are clear. CT Angiography 07/17/17 0000 Signed Impressions: CONCLUSION: 1. No evidence of pulmonary embolism. Small hiatal hernia. Mild coronary artery calcifications. Caprini VTE Risk Assessment Caprini VTE Risk Assessment: No/Low Risk (score <= 1) Caprini Risk Assessment Model Point Value = 1 Point Value = 2 Point Value = 3 Point Value = 5 Age 41-60 Minor surgery BMI > 25 kg/m2 Swollen legs Varicose veins or History of unexplained or recurrent spontaneous Oral contraceptives or hormone replacement Sepsis (< 1 month) Serious lung disease, including pneumonia (< 1 month) Abnormal pulmonary function Acute myocardial infarction Congestive heart failure (< 1 month) History of inflammatory bowel disease Medical patient at bed rest Age 61-74 Arthroscopic surgery Major open surgery (> 45 min) Laparoscopic surgery (> 45 min) Malignancy Confined to bed (> 72 hours) Immobilizing plaster cast Central venous access Age >= 75 History of VTE Family history of VTE Factor V Leiden Prothrombin [id number] Lupus anticoagulant Anticardiolipin antibodies Elevated serum homocysteine Heparin-induced thrombocytopenia Other congenital or acquired thrombophilia Stroke (< 1 month) Elective arthroplasty Hip, pelvis, or leg fracture Acute spinal cord injury (< 1 month) Prophylaxis Regimen Total Risk Factor Score Risk Level Prophylaxis Regimen 0-1 Low Early ambulation 2 Moderate Order ONE of the following: *Sequential Compression Device (SCD) *Heparin 5000 units SQ BID 3-4 Higher Order ONE of the following medications: *Heparin 5000 units SQ TID *Enoxaparin/Lovenox 40 mg SQ daily (WT < 150 kg, CrCl > 30 mL/min) *Enoxaparin/Lovenox 30 mg SQ daily (WT < 150 kg, CrCl > 10-29 mL/min) *Enoxaparin/Lovenox 30 mg SQ BID (WT < 150 kg, CrCl > 30 mL/min) AND/OR *Sequential Compression Device (SCD) 5 or more Highest Order ONE of the following medications: *Heparin 5000 units SQ TID (Preferred with Epidurals) *Enoxaparin/Lovenox 40 mg SQ daily (WT < 150 kg, CrCl > 30 mL/min) *Enoxaparin/Lovenox 30 mg SQ daily (WT < 150 kg, CrCl > 10-29 mL/min) *Enoxaparin/Lovenox 30 mg SQ BID (WT < 150 kg, CrCl > 30 mL/min) AND *Sequential Compression Device (SCD) Assessment and Plan Problem List: (1) Chest pain ICD Code: R07.9 - Chest pain Status: Chronic Assessment and Plan 57-year-old male who presented to the hospital with 1 hour history of left- sided chest pain with known history of coronary artery disease Chest pain, atypical -Patient with increased risk factors include age, male, coronary artery disease , hypertension, history of tobacco use -Patient has been ruled out for acute coronary event with serial cardiac enzymes that are negative -Serial EKG shows sinus rhythm without any changes -Patient with recent cardiac catheterization done approximately 1 month ago on , which indicated no significant lesions of his coronary anatomy, recommending continued medical therapy -Patient was continued on aspirin, statin, Norvasc, beta-ludmila, Brilinta -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 Diet: Healthy heart diet Medication per medication reconciliation Follow-up with primary medical doctor in 1 week This note was transcribed by hermila Asif. I, Dr. Eduardo Guadalupe personally performed the history, physical exam, and medical decision making; and confirmed the accuracy of the information in the transcribed note. Authenticated by Dr. Eduardo Guadalupe on 07/18/17 at 11:45. Code Status Full code Discussed Condition With Patient Problem Qualifiers (1) Chest pain: Qualified Codes: R07.9 - Chest pain, unspecified Man Asif July 18, 2017 11:29 Eduardo Guadalupe MD July 18, 2017 11:53
--- NOTE | 2017-07-18 11:30 | HHI.DCPOC ---
Discharge Care Plan Diagnosis: (1) Chest pain Goals to Promote Your Health * To prevent worsening of your condition and complications * To maintain your health at the optimal level Directions to Meet Your Goals Take your medications as prescribed Follow your dietary instruction Follow activity as directed Keep your appointments as scheduled Take your immunizations and boosters as scheduled If your symptoms worsen call your PCP, if no PCP go to Urgent Care Center or Emergency Room Smoking is Dangerous to Your Health. Avoid second hand smoke Call the 24-hour hour crisis hotline for domestic abuse at Man Asif July 18, 2017 11:30
[2017-07-18] MEDS ORDERED: ATORVASTATIN 40 MG TAB PO SCH (21:00)
[2017-07-18] MEDS ORDERED: MIRTAZAPINE 15 MG TAB PO SCH (21:00)
--- NOTE | 2017-07-19 07:30 | EKG ---
Date Performed: 07/18/2017 Time Performed: 05:52:15 PTAGE: 57 years EKG: Sinus rhythm POSSIBLE RIGHT VENTRICULAR CONDUCTION DELAY BORDERLINE ECG PREVIOUS TRACING : 07/17/2017 23.57 DOCTOR: Alan Davidson Interpretating Date/Time 07/19/2017 07:26:35
--- NOTE | 2017-07-19 07:37 | EKG ---
Date Performed: 07/17/2017 Time Performed: 23:57:11 PTAGE: 57 years EKG: Sinus rhythm WITH FIRST DEGREE AV BLOCK ABNORMAL ECG PREVIOUS TRACING : 07/17/2017 20.44 DOCTOR: Alan Davidson Interpretating Date/Time 07/19/2017 07:31:54
--- NOTE | 2017-07-19 08:16 | EKG ---
Date Performed: 07/17/2017 Time Performed: 20:44:59 PTAGE: 57 years EKG: Sinus rhythm NORMAL ECG PREVIOUS TRACING : 06/07/2017 09.09 DOCTOR: Alan Davidson Interpretating Date/Time 07/19/2017 08:13:02
== END 2017-07-18 13:43 | disposition home or self-care (01) ==
LOC: PHED 20:37 → PHEDA 23:43 → UNDOADMOB 23:45 → PH3A 07-18 01:46
PROVIDERS: ADMIT Hospitalist; ATTEND Hospitalist
DX: R07.9 Chest pain, unspecified (principal); I25.10 Atherosclerotic heart disease of native coronary artery without angina pectoris; I10 Essential (primary) hypertension; R94.31 Abnormal electrocardiogram [ECG] [EKG]; E78.5 Hyperlipidemia, unspecified; E78.00 Pure hypercholesterolemia, unspecified; Z87.891 Personal history of nicotine dependence; Z82.49 Family history of ischemic heart disease and other diseases of the circulatory system; Z23 Encounter for immunization
CPT/HCPCS: 71046; 71275; 80048; 83735; 84484; 85025; 85379; 85610; 90471; 90732; 93005; 99285; G0378; J7040; Q9967; G0009